=== PATIENT | female | born 1970 | race Caucasian/White ===

== ENCOUNTER → 2017-10-18 13:59 | Outpatient (CLI) | payer OTHER, SELFPAY ==
[2017-10-18 15:31] LABS: T4 Free Direct 1.13 ng/dL (0.76-1.46); Thyroid Stim Hormone (TSH) 1.57 uIU/mL (0.358-3.74)
== END ==
PROVIDERS: Family Provider Family Medicine; PCP Family Medicine; Visit Provider Nurse Practitioner
DX: E07.9 Disorder of thyroid, unspecified (principal)
CPT/HCPCS: 36415; 84439; 84443; 84481

== ENCOUNTER → 2017-11-16 12:48 | Outpatient (CLI) | payer OTHER, SELFPAY | PROVIDERS: Family Provider Family Medicine; PCP Family Medicine; Visit Provider Obstetrics & Gynecology | DX: Z12.31 Encounter for screening mammogram for malignant neoplasm of breast (principal) | CPT/HCPCS: 77063; 77067 ==

== ENCOUNTER 2018-01-24 11:01 | Day surgery (SDC) | payer OTHER, SELFPAY ==
[2018-01-18 11:43] LABS: Hematocrit 44.4 % (37-47); Hemoglobin 14.5 g/dl (12.0-15.0); Mean Corp Hgb Conc 32.7 g/gl (32-36); Mean Corpuscular Hgb 31.4 pg (27.0-32.0); Mean Corpuscular Volume 96.1 fL (81-99); Platelet Count 331 K/mm3 (150-450); Red Blood Count 4.62 M/mm3 (4.2-5.4); Scan Indicated on CBC? Y/N NO; White Blood Count 7.2 K/mm3 (4.4-11.0)
[2018-01-18 11:47] LABS: International Normalized Ratio 0.9; Prothrombin Time (Protime)PT. 12.6 SECONDS (11.7-14.9)
[2018-01-18 11:48] LABS: Partial Thromboplast Time 26.2 Seconds (24.1-36.2)
--- NOTE | 2018-01-24 | EMB_PTH ---
PATIENT: REJI REAL [place] [facility] [id number] AGE/SX: 47/F ROOM: RE01/24/[address]: Dr. Maryann Martinez MD : 1970 BED: DIS: 01/24/2018 SPEC #: [id number] RECD: 01/24/18 14:56 STATUS: ESPERANZA SALLIE #: [id number] KAVIN: 01/24/18 00:[address]: Maryann Martinez DEPT: SURGICAL PATHOLOGY RECD BY: Ty Rodrigez ENTERED: 01/24/18 14:56 SP TYPE: ENDOM BX/C BONITA DR: Dr. Kody Franco MD Tissues: A - Endometrium, NOS B - Endocervical Procedures: Surgery Specimen Level IV HEADER OPERATION: Hysteroscopy, D&C Lyndsay ablation, LEEP PRE-OP DIAGNOSIS: Submucous leiomyoma of uterus, other specified irregular menstruation TISSUE SUBMITTED: A. Endometrial curettings, B. Possible cervical fibroid MICROSCOPIC DIAGNOSIS A. Endometrium, biopsy: Proliferative endometrium with minimal disorder. Mild chronic endometritis. B. Possible cervical fibroid, excision: Consistent with submucosal leiomyoma. Endocervical and ectocervical mucosa with no pathologic change. CHAPARRITA:lupe 01/25/18 MICROSCOPIC DESCRIPTION Slides are reviewed. GROSS DESCRIPTION A. Received is one container labeled with the patient name and designated endometrial curettings. The specimen consists of multiple irregular fragments of hemorrhagic soft tissue that in aggregate measure 3 x .25 x 0.3 cm. The entire specimen is totally submitted in one cassette. B. Received is one container labeled with the patient name and designated possible cervical fibroid. The specimen consists of two indurated pieces of tissue that in aggregate measure 3 x 2.5 x 1 cm. The specimen is totally submitted in one cassette. Both pieces are serially sectioned and the entire specimen is submitted in 2 cassettes. KAN:lupe 01/24/18 TC: 3 CPT: 75487i7
[2018-01-24 11:24] VITALS: BP 124/69; PULSE 82; RESP 16; TEMP 36.3; O2SAT 100; BMI 25.9
[2018-01-24 11:32] LABS: Internal QC Validated? YES +Cl - CLEAR BKGD; Pregnancy, Urine Negative Negative
--- NOTE | 2018-01-24 12:18 | PCM.DC.D&C ---
Discharge Diet: No Restrictions Discharge Activity: May not drive while taking narcotic pain medications., May Shower, May Take a Tub Bath May resume sexual activity in: 1 week Call your doctor if you observe: Fever of 101 or Higher, Using more than one pad per hour, Uncontrolled pain Allergies/Adverse Reactions: Allergies No Known Allergies Allergy (Unverified 01/18/18 14:59) Medications to take at Discharge Cholecalciferol (Vitamin D3) [Vitamin D3] 1,000 unit PO DAILY 01/18/18 Levothyroxine Sodium [Synthroid] 112 mcg PO QHS 01/18/18 Multipak 1 pkg PO DAILY 01/18/18 Vitamin B Complex 1 each PO DAILY 01/18/18 Oxycodone [Oxyir] 5 mg PO Q6H PRN PRN 1 Days #4 tablet 01/24/18 The following prescriptions were given: Oxycodone [Oxyir] 5 mg PO Q6H PRN PRN 1 Days #4 tablet PRN Reason: Mod-Severe Pain (4-10/10) Primary Care Physician: Kody Franco MD [Primary Care Provider] - Test Results: Test results from this visit will be discussed in further detail at your follow-up appointment, if applicable. Please Follow Up With: Maryann Martinez MD - [phone] When: in 2 wk for postop appointment Proposed Discharge Date: 01/24/18
--- NOTE | 2018-01-24 12:22 | DCINST_ITS ---
Discharge Diet: No Restrictions Discharge Activity: May not drive while taking narcotic pain medications., May Shower, May Take a Tub Bath May resume sexual activity in: 1 week Call your doctor if you observe: Fever of 101 or Higher, Using more than one pad per hour, Uncontrolled pain Allergies/Adverse Reactions: Allergies No Known Allergies Allergy (Unverified 01/18/18 14:59) Medications to take at Discharge Cholecalciferol (Vitamin D3) [Vitamin D3] 1,000 unit PO DAILY 01/18/18 Levothyroxine Sodium [Synthroid] 112 mcg PO QHS 01/18/18 Multipak 1 pkg PO DAILY 01/18/18 Vitamin B Complex 1 each PO DAILY 01/18/18 Oxycodone [Oxyir] 5 mg PO Q6H PRN PRN 1 Days #4 tablet 01/24/18 The following prescriptions were given: Oxycodone [Oxyir] 5 mg PO Q6H PRN PRN 1 Days #4 tablet PRN Reason: Mod-Severe Pain (4-10/10) Primary Care Physician: Kody Franco MD [Primary Care Provider] - Test Results: Test results from this visit will be discussed in further detail at your follow- up appointment, if applicable. Please Follow Up With: Maryann Martinez MD - [phone] When: in 2 wk for postop appointment Proposed Discharge Date: 01/24/18
[2018-01-24] MEDS: FERRIC SUBSULFATE 8 GM SOLN (12:58)
[2018-01-24 13:13] VITALS: BP 103/59; BP 124/69; PULSE 71; RESP 16; TEMP 36.8; O2SAT 99
[2018-01-24 13:15] VITALS: BP 109/66; BP 124/69; PULSE 69; RESP 16; O2SAT 99
[2018-01-24 13:30] VITALS: BP 113/67; BP 124/69; PULSE 67; RESP 14; O2SAT 99
[2018-01-24 13:32] VITALS: BP 119/74; BP 124/69; PULSE 70; RESP 14; TEMP 36.9; O2SAT 100
[2018-01-24 14:08] VITALS: BP 124/69
--- NOTE | 2018-01-25 06:11 | PCM.OP.BLANK ---
Operative Report Date of Procedure: 01/24/18 Pre-Operative Diagnosis: Menometrorrhagia. Excessive irregular bleeding in premenopause Cervical fibroid vs sessile polyp at anterior lip of cervix. Post-Operative Diagnosis: Menometrorrhagia. Excessive irregular bleeding in premenopause Cervical fibroid vs sessile polyp at anterior lip of cervix. Surgery/Procedure Performed: Hysteroscopy, D and C, Lyndsay endometrial ablation. LEEP cone biopsy of cervix. Anesthesia: MAC IV sedation, Guerrero Phillip CRNA 10 cc 1% lidocaine with epinephrine as paracervical block, Maryann Martinez MD Estimated Blood Loss (mL): Minimal Complications: None. Drains: None. Fluids Replaced: Lactated Ringers Findings: Parous appearing cervix, with sessile polyp vs cervical fibroid at anterior lip of cervix. normal appearing endometrial cavity, no distortions. Fluffy appearing endometrium. Bilateral tubal ostia visualized Pathology Specimens: Endometrial curettings. LEEP biopsy of ectocervix (sessile polyp vs cervical fibroid) Narrative Account: After the risks, benefits, alteratives of the procedure were reviewed with the patient informed consent was obtained. The patient was taken to the OR with IV running and placed in dorsal supine position on the operating table. She was given IV sedation , and then repositioned to the dorsal lithotomy position and was prepped and draped in the usual sterile fashion. A Graves speculum was placed, the cervix was identified and a 10cc paracervical block was instilled at the 2:00, 4:00, 8:00 and 10:00 positions. A single toothed tenaculum was placed at the posterior lip of the cervix and the cervix was sequentially dilated to admit the hysteroscope. Hysteroscopy was performed with the findings noted above. A sharp curettage was then performed and the tissue set aside for later pathology review. The Lyndsay endometrial ablation procedure was then performed. The device was set to a cavity length of 5.5 cm (11 cm sound - 5.5 cm endocervical canal). The safety test was passed and the ablation was performed for 2 minutes. Upon completion of the ablation, the Lyndsay was removed. The single toothed tenaculum was removed from the posterior cervix. Excellent hemostasis was noted. A loop electrical excision procedure was then performed -- to excise the lesion at the anterior lip of the cervix-- at a power of 50-50 with blend of 1 between cut and coag. The biopsy was performed with a single pass. Excellent hemostasis was noted. A ball cautery was then used to cauterize the margins of the cervix at the biopsy site. [place] was applied to the cervix then. Excellent hemostasis was noted. A sponge stick was then used to remove any remaining tissue and blood from the upper vagina and cervix . All instruments were then removed from the vagina. The patient was awakened from her IV sedation, and then transferred to her recovery room bed in stable condition after tolerating the procedure well. Sponge , instrument, and needle counts were correct x two. Medications given intraoperatively included: the 10cc of 1% lidocaine with epinephrine as paracervical block. For a complete listing of medications given intraoperatively, please see the anesthesia record.
== END 2018-01-24 14:11 | disposition home or self-care (01) ==
LOC: SDC 11:07 → AC 11:10
PROVIDERS: Family Provider Family Medicine; PCP Family Medicine; Referring Provider Obstetrics & Gynecology; Visit Provider Obstetrics & Gynecology
PROC: 0U5B8ZZ Destruction of Endometrium, Via Natural or Artificial Opening Endoscopic (ICD-10-PCS; CPT 58558; principal; 2018-01-24 12:15)
DX: N71.1 Chronic inflammatory disease of uterus (principal); N92.1 Excessive and frequent menstruation with irregular cycle; E06.3 Autoimmune thyroiditis; Z79.899 Other long term (current) drug therapy
CPT/HCPCS: 00940; 57522; 58563; 36415; 81025; 85027; 85610; 85730; 88305; J7120; J2405

== ENCOUNTER → 2018-03-01 09:00 | Outpatient (CLI) | payer OTHER, SELFPAY ==
--- NOTE | 2018-03-01 09:05 | RAD_ITS ---
STUDY: X-RAY - ABDOMEN/PELVIS REASON FOR EXAM: Female, 47 years old. Abdominal pain in the lower abdomen, 4 days. TECHNIQUE: KUB COMPARISON: None. FINDINGS: Grossly normal size and position of the solid organs of the abdomen. No visible free air. Unremarkable small bowel pattern, minimal scattered gas, nondilated. Minimal stool burden of the large bowel, nondilated. The urinary bladder is somewhat distended. Correlate for appropriate voiding ability. Mild low lumbar spondylosis. Osteopenia. RAD/Abdomen Single View IMPRESSION: No definitive acute abdominopelvic process is evident. Normal bowel pattern. Somewhat distended urinary bladder. Correlate for appropriate voiding ability. Electronically Signed: Celso Winston MD at 13:41 EST Tel , Service support ,
== END ==
PROVIDERS: Family Provider Family Medicine; PCP Family Medicine; Referring Provider Family Medicine; Visit Provider Family Medicine
DX: R10.13 Epigastric pain (principal)
CPT/HCPCS: 74018

== ENCOUNTER → 2018-03-05 09:06 | Outpatient (CLI) | payer OTHER, SELFPAY ==
--- NOTE | 2018-03-05 09:11 | US_ITS ---
STUDY: ABDOMINAL ULTRASOUND - RIGHT UPPER QUADRANT REASON FOR VISIT: Female, 47 years old. TECHNIQUE: Ultrasound evaluation of the right upper quadrant was performed with real-time and static william-scale imaging. TECHNICAL QUALITY: Adequate. COMPARISON: None. FINDINGS: Liver: The liver measures 13cm. There is normal echogenicity of the liver. The bile ducts are within normal limits. There is hepatic color flow. The direction of portal flow is hepatopetal. There is no demonstrated mass lesion. Gallbladder: Normal distended gallbladder. The gallbladder wall measures 0.42 cm. There is a negative sonographic Allan's sign. There is no pericholecystic fluid. There is some debris, sludge or gravel. Common Bile Duct (C.B.D.): The common bile duct measures 0.35 cm. Pancreas: Normal size of the head, body and tail of the pancreas. There is normal echogenicity of the pancreas. There is no demonstrated pancreatic mass or cyst. Right Kidney: Normal size of the right kidney. The right kidney measures cm. Normal renal cortex. The right cortex measures cm. There is no demonstrated renal mass or cyst. There is no right hydronephrosis. US/Abdomen Limited IMPRESSION: Normal right upper quadrant ultrasound examination. Electronically Signed: Lukascleo Steff, at 15:38 EST Tel , Service support ,
== END ==
PROVIDERS: Family Provider Family Medicine; PCP Family Medicine; Referring Provider Family Medicine; Visit Provider Family Medicine
DX: R10.13 Epigastric pain (principal)
CPT/HCPCS: 76705

== ENCOUNTER 2018-03-12 11:09 | Emergency (ER) | payer OTHER, SELFPAY ==
[2018-03-12] VITALS (10 sets, daily range): BP systolic 109–124; BP diastolic 52–68; PULSE 74–96; RESP 14–18; TEMP 36.9–37.8; O2SAT 17–100; BMI 25.5
--- NOTE | 2018-03-12 11:25 | CT_ITS ---
STUDY: CT ABDOMEN AND PELVIS WITH CONTRAST REASON FOR EXAM: Female, 47 years old. 2 week history of left lower quadrant pain. Recent uterine ablation. RADIATION DOSAGE (If Supplied By Facility): CTDIvol = ( 12.98 ) mGy, DLP = ( 812.12 ) mGycm TECHNIQUE: Transaxial images were obtained from the dome of the diaphragm to the symphysis pubis without oral contrast. 100 ml of Isovue 300 contrast was administered. Sagittal and coronal images were reconstructed. Individualized dose optimization techniques were used for this CT. COMPARISON: None. FINDINGS: Minimal degree of dependent bibasilar atelectasis. The visualized portions of the heart are within normal limits. Normal liver. Normal gallbladder and extrahepatic biliary system. Normal spleen. Normal pancreas. Normal bilateral adrenal glands. Normal right kidney. Mild degree of left hydronephrosis. There is a small hiatal hernia. Normal small intestine. Normal colon. The appendix is visualized and appears normal. Normal abdominal aorta. Normal inferior vena cava. Normal retroperitoneum. Normal urinary bladder. There is a 4.4 cm x 9.2 cm x 8.4 cm complex cystic mass in the left adnexal region. There is diffuse inhomogeneous enlargement of the uterus. There are focal areas of increased density within it as well as decreased densities. Findings are suggestive of a fibrotic change with possible bleeding within the uterus. Correlation with a pelvic sonogram is recommended. Normal abdominal wall. Disc space narrowing and disc degeneration at the L5-S1 level. CT/Abdomen/Pelvis WITH Contrast IMPRESSION: Large left complex adnexal mass as described. Enlarged and heterogeneous appearance of the uterus. Correlation with pelvic ultrasound is recommended. Electronically Signed: Eric Saha MD at 13:13 EST Tel [phone], Service support ,
[2018-03-12 11:48] LABS: Absolute Lymphocyte Count 1.18 X10^3/ul (0.83-4.51); Absolute Neutrophil Count 12.1 X10^3/uL (2.0-7.7); Basophil# 0.03 X10^3/uL; Basophil% 0.2 % (0-1); Eosinophil# 0.09 X10^3/uL; Eosinophils% 0.6 % (0-5); Hematocrit 41.3 % (37-47); Hemoglobin 13.5 g/dl (12.0-15.0); Lymphocyte # 1.18 X10^3/ul (4.0); Lymphocyte % 8.4 % (19-41); Mean Corp Hgb Conc 32.7 g/gl (32-36); Mean Corpuscular Volume 94.7 fL (81-99); Monocyte# 0.63 X10^3/uL; Monocyte% 4.5 % (0-10); Neutrophil # 12.09 X10^3/uL (2.7-7.7); Neutrophil % 86.1 % (47-70); Platelet Count 484 K/mm3 (150-450); RBC Distribution Width CV 12.3 % (11.6-14.6); RBC Distribution Width SD 41.7 fl (35.1-43.9); Red Blood Count 4.36 M/mm3 (4.2-5.4); White Blood Count 14.1 K/mm3 (4.4-11.0)
[2018-03-12 11:50] LABS: POSITIVE COUNT NO; POSITIVE DIFFERENTIAL NO; POSITIVE MORPHOLOGY NO
[2018-03-12 12:00] LABS: ALB/GLOB Ratio 0.6 RATIO (0.9-2.4); AST(SGOT) 15 U/L (15-37); Alanine Aminotransfer ALT/SGPT 21 U/L (13-56); Albumin, Serum 3.2 g/dL (3.2-5.0); Alkaline Phosphatase 79 U/L (45-117); Anion Gap 8 (5-15); BUN 12 mg/dL (7-18); BUN/Creat Ratio 12.4 RATIO (10-20); Chloride 102 mmol/L (98-107); Creatinine, Serum 0.97 mg/dL (0.55-1.02); EST Glomerular Filtration Rate 65 mL/min (>60); Est Glom Filt Rate - Afr Amer 79 mL/min (>60); Estimated Creatinine Clearance 69.72 ml/min; Glucose 122 mg/dL (74-106); Potassium 3.9 mmol/L (3.5-5.1); Protein, Total 8.2 g/dL (6.4-8.2); Sodium Level 138 mmol/L (136-145)
[2018-03-12 12:55] LABS: Mucous, Urine 0 SEEN /hpf (<or=2+)
[2018-03-12 12:58] LABS: Color, Urine Yellow (Yellow); Glucose, Dipstick Normal (Normal); Ketone-Dipstick Negative (Negative); Leukocyte Esterase-Dipstick 500 /ul (Negative); Nitrite-Dipstick Negative (Negative); Occult Blood-Urine 150 /ul (Negative); Protein-Dipstick Negative (Negative); Urine Bilirubin Dipstick Negative (Negative); Urine Clarity Sl. Cloudy (Clear); Urine Urobilinogen Normal (Normal)
[2018-03-12] MEDS: Morphine 4 MG/ML Syringe IV (13:04)
[2018-03-12] MEDS: Ondansetron 4 MG/2 ML Vial IV (13:04)
[2018-03-12 13:05] LABS: Bacteria 1+ /hpf (None Seen); Red Blood Cells-Urine 0-5 SEEN /hpf (0-5); Squamous Epithelial Cells - UA 0-5 SEEN /hpf (5-10); White Blood Cells 5-10 SEEN /hpf (0-5); Yeast-Urine RARE /hpf (None Seen)
--- NOTE | 2018-03-12 13:24 | US_ITS ---
STUDY: ULTRASOUND TRANSVAGINAL CLINICAL: Female, 47 years old. Mass and left lower quadrant pain TECHNIQUE: Transvaginal COMPARISON: CT scan on March 12, 2018 FINDINGS: Examination of the uterus is limited due to thick enlargement and multiple fibroids Uterus measures approximately 10.5 x 8.7 x 7.5 cm. There are numerous fibroids at least 4 with the largest measuring 4 x 2.5 x 3.1 cm, 3.5 x 2.9 x 2.3 cm, 3.1 x 2.6 x 3.1 cm and 2.8 x 2.7 x 2.1 cm Normal endometrial thickness measuring 8 mm. There are no endometrial masses, and there is no fluid in the endometrial cavity. Normal uterine cervix. Normal right ovary, measuring 3.1 x 2.8 x 2.3 cm cm. There are multiple follicles without a dominant cyst. Left ovary is enlarged measuring 7.8 x 8.6 x 7 cm and there is a multi septated cyst with internal debris measuring 7.6 x 6.7 x 5.1 cm There is no mild free fluid in the pelvis. US/Transvaginal Non- IMPRESSION: Enlarged uterus with multiple intrauterine fibroids and large complex left ovarian cyst with mild fluid in the cul-de-sac Electronically Signed: Aneesh Neely MD at 16:36 EST , Service support ,
--- NOTE | 2018-03-12 14:22 | ED.DCSUM_ITS ---
- ER Visit Summary Date of Service: 03/12/18 Chief Complaint: Left lower quadrant abdominal pain History of Present Illness: The patient is a 47 F who has had 2 weeks of left lower quadrant abdominal pain. She describes as sharp in the left lower quadrant and radiates to the top of her bladder area. Denies nausea or vomiting. She has had some diarrhea today. Her temperature was 99 ?F at home. Denies any bright red blood per rectum. She has had an ultrasound and a KUB as an outpatient initially showed no acute findings. She tried Prilosec and Bentyl without relief. She had a uterine ablation this month and her NURSING HOME ASSISTANT ADMINISTRATOR does not feel that it is related to that. Physical Examination: Vital signs reviewed. HEENT exam unremarkable. Heart is regular rate and rhythm without murmurs. Lungs are clear to auscultation. Abdomen is soft it is in the left lower quadrant. Extremities reveal no edema. Skin exam normal. Neurologic exam normal. Test Results: White blood cell count 14.1. Glucose 122. Liver enzymes normal. Urinalysis reveals no infection. CAT scan of the abdomen and pelvis reveals a left adnexal complex mass. They recommended an ultrasound to delineate this further. Emergency Department Course and Treatment: White blood cell count 14.1, glucose 122. Urinalysis negative for infection. CAT scan reveals a left adnexal mass and pelvic ultrasound is recommended. Pelvic ultrasound reveals a complex left ovarian cyst measuring 7 x 6 x 5 cm. There is fibroids also noted. Treatment Plan: Patient will be discussed with her NURSING HOME ASSISTANT ADMINISTRATOR, Dr. Martinez. I will give her some [place] at home to help with the pain. She likely needs NURSING HOME ASSISTANT ADMINISTRATOR follow-up for this. He does not appear to be infectious in nature. Disposition: Discharge Impression: Left complex ovarian cyst This note was generated with [employer] dictation software. It may contain incorrect words, spelling, and punctuation that were not noted in review of the chart miguel or to signing ED Disposition - Plan for ED Patient: Chief Complaint: Abd Pain Referrals: Kody Franco MD [Primary Care Provider] -
[2018-03-12] MEDS: HYDROmorphone 1 MG/ML Syringe IV ×2 (14:39→17:15)
--- NOTE | 2018-03-12 16:53 | DCINST.ED_ITS ---
ED Disposition - Plan for ED Patient: Chief Complaint: Abd Pain Instructions: ED Cyst Ovarian Prescriptions: Hydrocodone Bitart/Apap 5-325 [[place] 5MG-325MG] 1 tab PO Q6H PRN PRN 3 Days #10 tab PRN Reason: Pain Referrals: Kody Franco MD [Primary Care Provider] -
== END 2018-03-12 17:23 | disposition home or self-care (01) ==
LOC: ED 12:04
PROVIDERS: Emergency Provider Emergency Medicine; Family Provider Family Medicine; PCP Family Medicine
DX: N83.202 Unspecified ovarian cyst, left side (principal); Z79.899 Other long term (current) drug therapy
CPT/HCPCS: 74177; 76830; 80053; 81001; 85025; 96374; 96375; 96376; 99283; J7030; Q9967; A4216; J2405

== ENCOUNTER 2018-03-16 14:03 | Inpatient (IN) | payer OTHER, SELFPAY ==
[2018-03-12 11:09] VITALS: BMI 25.5
--- NOTE | 2018-03-15 14:59 | HP.PCM_ITS ---
History and Physical Date of Admission: 03/15/18 Date: 03/15/2018 MARÍA REAL Date of : 1970 HISTORY OF PRESENT ILLNESS: On 03/15/2018, María Real, a 47 year old female 2 0 0 0 2, presented for: -Emergency Dept follow up and preop history and physical: PT is a 47 yo female, G-2 P-2 here today for a follow up to an ER visit to [facility] ER for pelvic pain. PT states she is still having pain in her LLQ, around to her L flank , and feeling pressure in her rectum. Denies any trouble with BM's or urinating. dg As above. María presented to [facility] emergency department on 03/12/18 to 03/13/18 with CC of pain in LLQ present for two weeks. Pain is described as sharp in LLQ and radiating to midline, suprapubic region. No rectal bleeding, No N/V. Some diarrhea on day of her presentation. She has had an endometrial ablation in January 2018 for irregular, heavy periods and reports that the periods are now regular. Hopeful no additional surgery / hysterectomy will be needed to treat periods. Labs in the ED: UA neg. WBC 14.1 Glucose [address] of abdomen and pelvis showed a left adnexal mass, complex. SONO at [facility] ED 03/12/18: Uterus -- 10.5 x 8.7 x 7.5 cm with numerous fibroids (at least four were measured) ES 8 mm R ovary WNL 3.1 x 2.8 x 2.3 cm multpile follicles L ovary 7.8 x 8.6 x 7 cm with a multiseptated cyst 7.6 x 6.7 x 5.1 cm Her prior ultrasound in this office in OCTOBER 2017: UTERUS: 10.4 x 6.8 x 7.3cm. Three submucous fibroids 1) 2.9 x 3.1 x 3.3cm. 2) 2.1 x 2.6 x 2.4cm 3) 3.2 x 2.8 x 2.7cm. RIGHT OVARY: 2.8 x 2.6 x 1.9cm. small follicle measures 1.5 x 1.7 x 1.5cm. LEFT OVARY: 5.1 x 3.8 x 5.1cm. hemorrhagic cyst measures 4.3 x 4.3 x 2.7cm. María and her are advised that the Left ovarian cyst has grown since October 2017 from 4.3 x 4.3 x 2.7 cm. to 7.6 x 6.7 x 5.1 cm Advised that the Left ovary and fallopian tube should be removed. Recommend she consider LAVH, LSO, R salpingectomy. May also consider removal of just the left fallopian tube and ovary if she is not wanting the fibroid uterus removed. EB ALLERGIES: aspirin, Upset stomach MEDICATIONS HISTORY: Current medications prescribed by our practice are: 1. Vicodin 5 mg-300 mg tablet, 1 po q 4 hr prn Patient is also takin. Calcium 600 with Vitamin D3 600 mg(1,500mg) -400 unit capsule, daily 2. levothyroxine 88 mcg tablet, daily 3. Multi For Her 18 mg iron-600 mcg capsule, daily 4. Vitamin B Complex tablet, daily 5. Vitamin C 500 mg tablet, daily 6. Vitamin D3 1,000 unit tablet, daily REVIEW OF SYSTEMS: GENERAL - Denies fever, or chills SKIN - Denies skin changes EYES - Denies visual changes EARS - Denies difficulty hearing NOSE - Denies nasal congestion or bleeding MOUTH - Denies sore throat or difficulty swallowing NECK - Denies pain or swelling RESPIRATORY - Denies shortness of breath or wheezing CARDIOVASCULAR - Denies palpitations or chest pain GASTROINTESTINAL - Denies nausea, vomiting, diarrhea, constipation GENITOURINARY - Pain in left pelvic MUSCULOSKELETAL - Denies joint or muscle pain NEUROLOGICAL - Denies localized numbness or weakness PSYCHIATRIC - Denies depression or anxiety ENDOCRINE - Denies heat or cold intolerance, weight loss or gain HEMATO-IMMUNOLOGIC - Denies excesive bleeding with cuts PAST HISTORY: Breast/Ovarian/Colon Cancers - Denies Infections - Chicken pox Illnesses - fibromyalgia, Plantar fasciitis both feet Accidents - no injuries of consequence History of Abnormal PAPS - Denies Hospitalizations - Childbirth and see surgery Patrick Thyroiditis; SURGICAL HISTORY: 1. bilateral foot surgery for plantar fasciitis 2. 01/24/2018 Hysteroscopy, D and C, Lyndsay ablation Maryann Martinez M.D. 3. 12/08/[address] Almonte Patrick Thyroiditis MENSTRUAL HISTORY: LMP Known?- Approximate-Month KnownAmount/Duration - 7-10, Regularity - Regular, Frequency - monthly days, LMP - 03/13/18, Age Onset Menarche - 13 PAST PREGNANCIES: Total Pregnancies - 2; Full Term Pregnancies - 2; Premature - 0; Abortions, Induced - 0; Abortions, Spontaneous - 0; Ectopics - 0; Multiple Births - 0; Living Children - 2 FAMILY HISTORY (OLD): Mother: DM II. Father: kidney problems. Sister: DM II. 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 Illicit Drug Use - denies use of street drugs Sexual Activity - Residence - owns a home Hours Worked - 35 Spouse-Sig Other Name - PAUL Spouse-Sig Other Occupation - FE[employer]ER C[employer]ER [employer] Children Name(s) - ARCELIA ( 10/21) Control - Vasectomy PHYSICAL EXAMINATION BP- 128/72 Sitting, Right arm, regular cuff Weight- 164.00 lbs Height- 67.00 inch BMI:25.74 CONSTITUTIONAL - NAD, well nourished, and well developed HEENT - Normocephalic, PERRLA, EOMI NECK - no nuchal rigidity EXTREMITIES - No edema or calf tenderness NEUROLOGICAL - Cranial nerves II-XII grossly intact PSYCHIATRIC - A and O to time, place, person, mood and affect ASSESSMENT: 1. Leiomyoma Of Uterus, Unspecified 2. Other Ovarian Cyst, Left Side 3. Lower Abdominal Pain, Unspecified PLAN BY DIAGNOSIS: 1. Abnormal Findings On Diagnostic Imaging Of Other Specified Body Structures, Lower Abdominal Pain, Unspecified, Other Ovarian Cyst and Left Side Discussed pelvic sono done at [facility] Emergency dept. Reviewed sono done in October 2017 which showed a hemorrhagic cyst on L ovary, but only 4-5 cm and now is much larger. Recommend: laparoscopic LSO to remove the left ovary and fallopian tube. Pathology results for final diagnosis, but suspect benign process as no free fluid in pelvis. Discussed R,B,A of laparoscopic left salpingoophorectomy with possible minilaparotomy to remove L ovary. Advised will leave R ovary in place if NL and appears to be normal on sono. Discussed anticipated preop and operative and postop recovery including ac All questions answered and consent signed and on chart. Surgery as planned on 03/16/18 RTO in 2 wk for postop check. The visit was approximately 20 minutes in length with most of the time spent in discussion and counseling. 2. Leiomyoma Of Uterus, Unspecified and Other Specified Irregular Menstruation S/P hysteroscopy, D and C, and Lyndsay endometrial ablation. Advised may consider hysterectomy or may continue to observe and await menopause. Prefers no hysterectomy at this point. Bleeding is now regular after the endometrial ablation. Wants to observe for now. If failure of treatment: reconsider hysterectomy. LAVH vs TVH
[2018-03-16] VITALS (13 sets, daily range): BP systolic 91–127; BP diastolic 51–75; PULSE 51–86; RESP 14–20; TEMP 36.2–36.9; O2SAT 97–100; BMI 25.3
--- NOTE | 2018-03-16 | HYST_PTH ---
PATIENT: REJI REAL LOC: MS3 U#:[id number] AGE/SX: 47/F ROOM: IA310 RE03/16/[address]: Dr. Maryann Martinez MD : 1970 BED: 1 DIS: 03/18/2018 SPEC #: [id number] RECD: 03/16/18 14:57 STATUS: ESPERANZA REJaswant #: [id number] KAVIN: 03/16/18 00:[address]: Maryann Martinez DEPT: SURGICAL PATHOLOGY RECD BY: Ty Rodrigez ENTERED: 03/16/18 14:57 SP TYPE: HYSTERECT OTHR DR: Dr. Kody Franco MD Tissues: Uterus, NOS Procedures: Surgery Specimen Level V HEADER OPERATION: Diagnostic laparoscopy converted to open abdominal hysterectomy PRE-OP DIAGNOSIS: Left ovarian cyst, lower abdominal pain, leiomyoma of uterus TISSUE SUBMITTED: Uterus, cervix, left ovary and tube MICROSCOPIC DIAGNOSIS Uterus, hysterectomy: Cervix - chronic inflammation, nabothian cysts and squamous metaplasia. Endometrium - ablated with associated fibrinoid material and acute inflammation. Myometrium - leiomyomas. Left ovary - hemorrhagic corpus luteal cyst. Fallopian tube - benign paratubal cyst and tubo-ovarian adhesions. AM:shavon 03/19/18 MICROSCOPIC DESCRIPTION Slides are reviewed. GROSS DESCRIPTION Received in fixative is one container labeled with the patient's name and designated uterus. The specimen consists of a morcellated uterus received in 14 fragments ranging in size from 1.5 cm to 8 cm in greatest dimension and in aggregate weighing 325 gm. The fragment with ectocervix is grossly unremarkable. The cervical os is oval in contour. The endocervical canal measures 3.5 cm in length and is grossly unremarkable. The triangular endometrial cavity measures 4 x 3 cm. The curran-yellow endometrium measures up to 0.2 cm in thickness and may represent post therapeutic discoloration. The myometrium measures 3 cm in greatest thickness and is distorted by three spherical rubbery masses ranging in size from 2.5 to 3.8 cm. On cut sections, the masses have a whorled appearance without areas of cyst formation or necrosis. Also present in the specimen container is a smooth, glistening cyst measuring 1.7 x 1.5 cm and containing clear fluid and grossly resembling a paratubal cyst. Also present in the specimen container are six irregular fragments of hemorrhagic pink-curran soft tissue measuring 6 x 5 x 3 cm. Presumably this represents ovarian tissue. One segment of tubular tissue measuring 2 x 1 cm is present and presumed to be a portion of fallopian tube. No distinct fimbrial end is seen. Fellmongering Machine Operator sections are submitted in 12 cassettes as follows: 1 & 2 - cervix, 3-6 - endometrium/myometrium, 7 - largest myometrial mass, 8 - second largest myometrial mass, 9 - third largest myometrial mass, 10-12 - presumed ovary, fallopian tube and paratubal cyst. / AM:shavon 03/16/18 TC:1 CPT: 72548
[2018-03-16 09:47] LABS: Internal QC Validated? YES +Cl - CLEAR BKGD
[2018-03-16 09:50] LABS: Pregnancy, Urine Negative Negative
[2018-03-16 10:24] LABS: Thyroid Stim Hormone (TSH) 5.44 uIU/mL (0.358-3.74)
[2018-03-16] MEDS: Bupivacaine Mpf 0.5% 30 ML VIAL (11:45)
--- NOTE | 2018-03-16 14:56 | OP.PCM_ITS ---
Operative Report Date of Procedure: 03/16/18 PROCEDURE: Diagnostic Laparoscopy, converted to SUSAN. Total abdominal hysterectomy Left salpingoophorectomy Adhesiolysis Preoperative diagnosis: Left ovarian cyst, complex appearing 7 x 8 cm Chronic pelvic pain, lower abdominal pain Fibroid uterus History of heavy , irregular periods. S/P hysteroscopy, D and C (benign), Lyndsay endometrial ablation. Postop diagnosis: Left ovarian cyst, complex appearing 7 x 8 cm Chronic pelvic pain , lower abdominal pain Endometriosis Dense pelvic adhesions at left adnexa Fibroid uterus History of heavy , irregular periods. S/P hysteroscopy, D and C (benign), Lyndsay endometrial ablation. Anesthesia: General anesthesia, Katya Martin CRNA Surgeon: Maryann Martinez MD Spike Machine Feeder: FLORESITA Pierce EBL 250 cc Complications: none Drains: Riley draining clear yellow appearing urine Fluids: replacement LR Findings: There was a mildly enlarged fibroid uterus which was freely mobile. The right fallopian and tube and ovary are WNL, mobile and without adhesions or endometriosis. The left fallopian tube and ovary were densely adherent to the pelvic sidewall, posterior leaf of the broad ligament, uterus. A large fluid filled cyst was noted and drained of chocolate appearing endometriotic fluid during the case. There were dense adhesions at the uterosacral ligaments on the left side. Thickened , reactive peritoneum was noted at the left side of the pelvis. PATH: Uterine fundus, without cervix Right fallopian tube and ovary, dissected from the pelvic sidewall and removed in pieces. Narrative account: After the risks, benefits and alternatives of the procedure were reviewed with the patient, informed consent was obtained. The patient was taken to the Operating room with an IV running, and placed in dorsal supine position on the operating table with the arms tucked at the sides. She was given general anesthesia and once asleep, repositioned to the dorsal lithotomy position and prepped and draped in the usual sterile fashion. A red Holcomb catheter was used to drain the bladder prior to initiation of the case. A single toothed tenaculum was used to grasp the anterior lip of the cervix and a Dayanara cannula was inserted into the cervix to manipulate the uterus and cervix during the case. Attention was then turned to the anterior abdominal wall. The roll grinder operator's gloves were changed and 0.5% Marcaine without epinephrine was instilled at the skin inferior to the umbilicus, at the suprapubic skin in the midline and at a point retirement between the umbilicus and suprapubic skin in the midline. A 5 mmm skin incision was created using the knife at the infraumbilical skin, at 10 mm suprapubic skin incision was created and a third incision, 5 mm, was created transversely in the midline. A Veress needle was inserted into the infraumbilical skin incision and there was free drop of saline and low opening pressure, free flow of C02. Once the intraabdominal pressure reached 15 mm Hg, the Veress needle was removed and a bladeless 5 mm trocar was inserted into the intraperitoneal cavity. Correct placement was confirmed with the scope. Under direct laparoscopic visualization then a 5 mm bladeless trocar was placed at the mid-lower abdominal incision and a 10 mm bladeless trocar was placed through the suprapubic skin. An attempt was made to mobilize the left adnexal mass, but the mass could not be mobilized and was firmly adherent to the pelvic sidewall. The right ovary and fallopian tube were normal appearing, freely mobile with no evidence of endometriosis. Given the dense adhesions, the decision was made to proceed with left salpingoophorectomy through a laparotomy incision. The proper surgical instrument set was called for and the room was converted to an open case. At this point, I broke scrub to discuss the findings with the patient's . I presented the option to go ahead with hysterectomy for María's fibroid uterus and history of heavy and irregular periods. María, in preoperative discussion, was hoping to avoid a 4-6 wk recovery, but given the need for laparotomy to address the L adnexal mass Riki agreed that it was reasonable to proceed with hysterectomy, and removal of the left ovarian mass. I returned to the operating room to proceed with amended procedure as discussed: SUSAN, left salpingoophorectomy and lysis of adhesions. The trocars were removed and the pneumoperitoneum was reduced. The infraumbilical skin incision and the mid lower abdomen skin incisions were closed with subcuticular stitches of 4-0 Monocryl. A Pfannenstiel skin incision was created using the knife. The incision was carried down to the rectus fascia using the knife. The fascia was nicked in the midline. The fascial incision was extended bilaterally using curved Fu scissors. The superior aspect of the fascial incision was grasped with Fabiana clamps and tented up and the underlying rectus abdominal muscles were dissected free. In a similar manner, the inferior aspect of the facial incision was grasped with Fabiana clamps tented up and the underlying rectus abdominal muscles were dissected free. The rectus abdominis muscles were in the midline and the peritoneum was identified and entered by blunt dissection high in the incision. The peritoneal incision was extended superiorly and inferiorly with Metzenbaum scissors. The peritoneum and rectus abdominis muscles were stretched laterally. The Joon retractor with short side blades, bladder retractor and superior arm retractor were then inserted. The bowel was tucked back out of the field with moistened laparotomy sponges. The exposed portion of the uterine fundus was grasped with a single toothed tenaculum to allow manipulation of the uterus while adhesiolysis was initiated. The round ligaments were grasped, suture ligated and then divided by Bovie cautery. These were tagged for later identification. Bovie cautery and sharp dissection were used to divide the anterior leaf of the broad ligament down to the midportion of the lower uterine segment A sponge stick was then used to push the bladder down off the cervix. A curved Rell clamp was then used to grasp the left infundibulopelvic ligament. This was divided, suture ligated and free tied with 1 Vicryl. Adequate hemostasis was noted at the pedicle. Sequential pedicles were then taken along the broad ligament at each side of the uterus, alternating between the right and the left sides to maintain hemostasis. Each pedicle along the broad ligament was sequentially grasped by straight Rell clamps, divided and suture ligated. Adequate hemostasis was noted as each pedicle was secured. The uterine arteries were clamped bilaterally and divided and suture ligated. At this point, to improve visualization of the operative field the uterine fundus was amputated. The circulating nurse placed a Riley catheter at this point also to drain the bladder for the remainder of the case and to improve surgical exposure. Dissection then continued along each side of the lower uterine segment and cervix. Each pedicle was clamped, maintaining close approximation to the uterus and cervix. Ultimately a Z clamp was placed from each side to a point just inferior to the cervix along the upper vagina. The vagina was then closed with a series of interrupted and figure of eight stitches of 0 Vicryl. Excellent hemostasis was noted at the vaginal cuff and right ovarian pedicle. Attention was then turned to closer inspection of the remaining L ovary. The peritoneum at the left pelvis was thickened and reactive. Using Metzenbaum scissors and [place] clamps for exposure, the remaining left ovarian tissue and endometriosis was removed in portions, set aside for later pathology review. The left infundibulopelvic ligament was oversewn for hemostasis. The left round ligament was dry. The pelvis and abdomen were irrigated. A clean, moist laparotomy sponge was placed at the L pelvic sidewall and this area was inspected for hemostasis. There was some generalized, minimal, oozing noted at the dissection where the adhesions and endometriosis was removed . Taisha was applied to the area and the area was oversewn with 3-0 Vicryl to reperitonealize the area. The pelvis was again inspected. Excellent hemostasis was noted. Taisha was sprayed along the vaginal cuff after visual inspection. All laparotomy sponges were removed, and the Joon retractor was removed. The bowel and omentum were returned to their anatomic positions in the lower abdomen. The rectus abdominis muscles and peritoneum were reapproximated in the midline with vertical mattress stitches of 1 Vicryl. Taisha was dusted over the anterior rectus bodies. The fascia was then closed with a running nonlocked stitch of 1 Vicryl. Bovie cautery was used for hemostasis at the subcutaneous fatty tissue layer. 3-0 Vicryl was then used to reapproximate this layer and close space. The skin was then reapproximated with a subcuticular stitch of 4-0 Monocryl in a running fashion. The skin incision was then cleansed and a sterile dressing of Cavilon, steristrips, and a Mepilex were applied. Sponge, instrument and needle counts were correct times two. The patient was then awakened from general anesthesia and transferred to the recovery room in stable condition after tolerating the procedure well. Excellent urine output was noted. Medications given preop and intraop included: Cefotetan 2 gm IV requested to the OR and given in the OR when the decision was made to proceed with the open hysterectomy. For a complete listing of medications given preop and intraop, please see the anesthesia record.
[2018-03-16 15:29] LABS: Anion Gap 10 (5-15); BUN 11 mg/dL (7-18); BUN/Creat Ratio 8.3 RATIO (10-20); Calcium,Total 8.1 mg/dL (8.5-10.1); Chloride 102 mmol/L (98-107); Creatinine, Serum 1.33 mg/dL (0.55-1.02); EST Glomerular Filtration Rate 45 mL/min (>60); Est Glom Filt Rate - Afr Amer 55 mL/min (>60); Estimated Creatinine Clearance 50.85 ml/min; Glucose 147 mg/dL (74-106); Potassium 4.2 mmol/L (3.5-5.1); Sodium Level 139 mmol/L (136-145)
[2018-03-16] MEDS: Ondansetron 4 MG/2 ML Vial IV ×2 (16:22→20:25)
[2018-03-16] MEDS: HYDROmorphone 1 MG/ML Syringe IV ×2 (16:22→20:22)
[2018-03-16] MEDS: proMETHazine 25 MG/ML Syringe 6.25 MG IV (17:04)
[2018-03-16] MEDS: Lactated Ringers 1,000 ML 125 ML IV ×2 (17:07→22:31)
[2018-03-16] MEDS: Lactated Ringers 500 ML 999 ML IV (20:00)
[2018-03-16] MEDS: Docusate Sodium 100 MG Capsule PO (22:18)
[2018-03-16] MEDS: Ibuprofen 400 MG Tablet PO (23:43)
[2018-03-17] MEDS: Lactated Ringers 1,000 ML 125 ML IV (02:37)
[2018-03-17] MEDS: oxyCODONE 5 MG Tablet PO (02:38)
[2018-03-17 02:46] VITALS: BP 128/64; PULSE 71; RESP 18; TEMP 36.8; O2SAT 99
[2018-03-17] MEDS: HYDROmorphone 1 MG/ML Syringe IV ×2 (04:06→15:19)
[2018-03-17] MEDS: Ondansetron 4 MG/2 ML Vial IV (04:09)
--- NOTE | 2018-03-17 05:19 | PCM.DC.AHY ---
Discharge Diet: No Restrictions Discharge Activity: May not drive while taking narcotic pain medications., May Shower, May Take a Tub Bath Return to work on:: 04/30/18 May resume sexual activity in: 4-6 weeks Lifting Restrictions: Limit to less than 20 lbs for 4-6 wk to allow healing Call your doctor if your incision/area has: Sudden Increased Bleeding, Increased Pain/ Swelling, Increased Redness Call your doctor if you observe: Fever of 101 or Higher, Inability to urinate, Inability to have a bowel movement, Using more than one pad per hour, Calf discomfort, Uncontrolled pain Change Dressing in (Days):: 7 Remove Dressing in (days):: 7 Cleanse incision/area with: Soap & Water, Keep Dressing Clean & Dry Additional Instructions: You may resume walking and ferry hand activity as tolerated. Walk at least 3 times daily to help prevent blood clots. You may take Tylenol for pain. Add Oxycodone for more severe pain. Limit ibuprofen and Aleve as these are cleared by your kidneys. No heavy lifting and nothing in the vagina for 4-6 wk to allow healing. Allergies/Adverse Reactions: Allergies No Known Allergies Allergy (Verified 03/16/18 09:46) Medications to take at Discharge Cholecalciferol (Vitamin D3) [Vitamin D3] 1,000 unit PO DAILY 01/18/18 Levothyroxine Sodium [Synthroid] 112 mcg PO QHS 01/18/18 Multipak 1 pkg PO DAILY 01/18/18 Vitamin B Complex 1 each PO DAILY 01/18/18 L.acidoph,Paracasei, B.lactis [Probiotic] 1 each PO DAILY 03/12/18 Acetaminophen [Tylenol] 1,000 mg PO Q8H PRN PRN tablet 03/17/18 Docusate Sodium [Colace] 100 mg PO BID #30 capsule 03/17/18 Oxycodone [Oxyir] 5 mg PO Q6H PRN PRN 7 Days #20 tablet 03/17/18 Polyethylene Glycol 3350 [Miralax] 17 gm PO DAILY PRN #14 packet 03/17/18 The following prescriptions were given: Oxycodone [Oxyir] 5 mg PO Q6H PRN PRN 7 Days #20 tablet PRN Reason: Mod-Severe Pain (4-12/20) Polyethylene Glycol 3350 [Miralax] 17 gm PO DAILY PRN #14 packet PRN Reason: Constipation Docusate Sodium [Colace] 100 mg PO BID #30 capsule Primary Care Physician: Kody Franco MD [Primary Care Provider] - Test Results: Test results from this visit will be discussed in further detail at your follow-up appointment, if applicable. Please Follow Up With: Maryann Martinez MD - [phone] When: follow up appointment in the office for postoperative appt in two wks. Proposed Discharge Date: 03/18/18
--- NOTE | 2018-03-17 05:29 | DCINST_ITS ---
Discharge Diet: No Restrictions Discharge Activity: May not drive while taking narcotic pain medications., May Shower, May Take a Tub Bath Return to work on:: 04/30/18 May resume sexual activity in: 4-6 weeks Lifting Restrictions: Limit to less than 20 lbs for 4-6 wk to allow healing Call your doctor if your incision/area has: Sudden Increased Bleeding, Increased Pain/ Swelling, Increased Redness Call your doctor if you observe: Fever of 101 or Higher, Inability to urinate, Inability to have a bowel movement, Using more than one pad per hour, Calf discomfort, Uncontrolled pain Change Dressing in (Days):: 7 Remove Dressing in (days):: 7 Cleanse incision/area with: Soap & Water, Keep Dressing Clean & Dry Additional Instructions: You may resume walking and brush stainer activity as tolerated. Walk at least 3 times daily to help prevent blood clots. You may take Tylenol for pain. Add Oxycodone for more severe pain. Limit ibuprofen and Aleve as these are cleared by your kidneys. No heavy lifting and nothing in the vagina for 4-6 wk to allow healing. Allergies/Adverse Reactions: Allergies No Known Allergies Allergy (Verified 03/16/18 09:46) Medications to take at Discharge Cholecalciferol (Vitamin D3) [Vitamin D3] 1,000 unit PO DAILY 01/18/18 Levothyroxine Sodium [Synthroid] 112 mcg PO QHS 01/18/18 Multipak 1 pkg PO DAILY 01/18/18 Vitamin B Complex 1 each PO DAILY 01/18/18 L.acidoph,Paracasei, B.lactis [Probiotic] 1 each PO DAILY 03/12/18 Acetaminophen [Tylenol] 1,000 mg PO Q8H PRN PRN tablet 03/17/18 Docusate Sodium [Colace] 100 mg PO BID #30 capsule 03/17/18 Oxycodone [Oxyir] 5 mg PO Q6H PRN PRN 7 Days #20 tablet 03/17/18 Polyethylene Glycol 3350 [Miralax] 17 gm PO DAILY PRN #14 packet 03/17/18 The following prescriptions were given: Oxycodone [Oxyir] 5 mg PO Q6H PRN PRN 7 Days #20 tablet PRN Reason: Mod-Severe Pain (4-12/20) Polyethylene Glycol 3350 [Miralax] 17 gm PO DAILY PRN #14 packet PRN Reason: Constipation Docusate Sodium [Colace] 100 mg PO BID #30 capsule Primary Care Physician: Kody Franco MD [Primary Care Provider] - Test Results: Test results from this visit will be discussed in further detail at your follow- up appointment, if applicable. Please Follow Up With: Maryann Martinez MD - [phone] When: follow up appointment in the office for postoperative appt in two wks. Proposed Discharge Date: 03/18/18
[2018-03-17] MEDS: Ibuprofen 400 MG Tablet PO (05:52)
[2018-03-17 07:18] LABS: Hematocrit 33.3 % (37-47); Hemoglobin 10.8 g/dl (12.0-15.0); Mean Corp Hgb Conc 32.4 g/gl (32-36); Mean Corpuscular Hgb 30.3 pg (27.0-32.0); Mean Corpuscular Volume 93.5 fL (81-99); Mean Platelet Vol. 9.2 fl (6.2-12.0); Platelet Count 505 K/mm3 (150-450); RBC Distribution Width CV 12.3 % (11.6-14.6); RBC Distribution Width SD 41.8 fl (35.1-43.9); Red Blood Count 3.56 M/mm3 (4.2-5.4); White Blood Count 18.3 K/mm3 (4.4-11.0)
[2018-03-17 07:20] LABS: Scan Indicated on CBC? Y/N NO
[2018-03-17 07:43] LABS: Creatinine, Serum 0.86 mg/dL (0.55-1.02); EST Glomerular Filtration Rate 75 mL/min (>60); Est Glom Filt Rate - Afr Amer 91 mL/min (>60); Estimated Creatinine Clearance 78.64 ml/min
[2018-03-17 07:44] VITALS: O2SAT 98
--- NOTE | 2018-03-17 08:43 | PN_ITS ---
Subjective: POD#1 Laparoscopy converted to SUSAN, LSO. Lysis of adhesions Doing OK. Painful. States was taking a lot of Motrin/ibuprofen at home prior to surgery. Also felt that the [place]/Vicodin works better for her than the Oxycodone. Minimal bleeding, states nurse just changed pad.. Objective: Lying in bed, appears tired, mildly uncomfortable. - Physical Exam General: Alert, Oriented x3, Cooperative HEENT: Atraumatic Neck: Supple Abdomen: Soft Skin: Incision - Mepilex and op sites all CDI. Peripad with scant spotting only. Psych/Mental Status: Normal Affect Vital Signs Temp Pulse Resp BP Pulse Ox 98.3 F 71 18 128/64 H 99 03/17/18 02:46 03/17/18 02:46 03/17/18 02:46 03/17/18 02:46 03/17/18 02:46 Oxygen Flow Rate (L/min) 2 Oxygen Delivery Method Room Air Weight: 73.4 kg Body Mass Index (BMI) 25.3 Intake and Output for Last 24 Hours 03/15/18 03/16/18 03/17/18 23:59 23:59 23:59 Intake Total 2819 / 2819 400 / 400 Output Total 430 / 430 1000 / 1000 Balance 2389 / 2389 -600 / -600 Laboratory Tests Past 24 Hrs 03/16/18 03/16/18 03/16/18 09:37 09:40 13:14 WBC RBC Hgb Hct MCV MCH MCHC RDW RDW Differential Plt Count MPV Sodium 139 Potassium 4.2 Chloride 102 Carbon Dioxide 27.0 Anion Gap 10 BUN 11 Creatinine 1.33 H Estim Creat Clear Calc 50.85 Est GFR (MDRD) Af Amer 55 L Est GFR (MDRD) Non-Af 45 L BUN/Creatinine Ratio 8.3 L Glucose 147 H Calcium 8.1 L TSH 5.44 H Urine Test Negative 03/17/18 03/17/18 06:32 06:32 WBC 18.3 H RBC 3.56 L Hgb 10.8 L Hct 33.3 L MCV 93.5 MCH 30.3 MCHC 32.4 RDW 12.3 RDW Differential 41.8 Plt Count 505 H MPV 9.2 Sodium Potassium Chloride Carbon Dioxide Anion Gap BUN Creatinine 0.86 Estim Creat Clear Calc 78.64 Est GFR (MDRD) Af Amer 91 Est GFR (MDRD) Non-Af 75 BUN/Creatinine Ratio Glucose Calcium TSH Urine Test Medical Necessity - Tobacco Use Smoking Status: Never smoker Tobacco Use: Non-smoker Assessment/Plan POD#1 S/P laparoscopy, converted to SUSAN, LSO and lysis of adhesions. Stable postop . Reviewed operative findings and labs. #1) renal function. Cr high at surgery and GFR decreasing, may have been due to medications (NSAIDs used) or due to mass effect of the severe adhesions/endometrioma at L adnexa. Today's BMP wnl and improved Cr and GFR #2 pain control Was on high dose Motrin preop. Not enough relief with motrin at present Normal BMP , Cr and GFR. Start Toradol 30 mg IV q 6 hr today Inc diet and activity as tolerated. Begin po Vicodin instead of Oxycodone for pain. Statex Oxycodone less effective in past for her. IV to S/L if tolerating PO. Voiding trial in progress and has already voided since Riley removed. Continue care.
[2018-03-17 09:00] VITALS: BP 107/68; PULSE 70; RESP 20; TEMP 36.6; O2SAT 97
[2018-03-17] MEDS: HYDROcodone Bitartrate/Apap 5/325 Tablet PO ×5 (09:48→23:27)
[2018-03-17] MEDS: Ketorolac 30 MG/ML Syringe IV ×3 (09:50→23:27)
[2018-03-17] MEDS: Docusate Sodium 100 MG Capsule PO ×2 (10:51→20:59)
[2018-03-17] MEDS: Enoxaparin 40 MG/0.4 ML Syringe SC (10:52)
[2018-03-17] MEDS: Polyethylene Glycol 3350 17 GM PACKET PO (10:53)
[2018-03-17 15:00] VITALS: BP 94/55; PULSE 78; RESP 20; TEMP 36.6; O2SAT 97
--- NOTE | 2018-03-17 15:55 | CM.UR ---
genetic physician completed. Met face to face with patient, introduced myself and explained my role. Verbal consent to case mgmt assessment at this time. Denies anticipating any needs upon discharge that her can't help her with. Was previously independent. Her current concern is getting the pain under control. Explained that case management will remain available should any needs arise. Verb understanding. Fatmata Warren RN, [facility].
[2018-03-17] MEDS: 0.9% NaCl Peripheral Flush Adult/Peds IV ×2 (18:01→23:28)
--- NOTE | 2018-03-17 20:14 | NURSING ---
1829 Dr Martinez called , pt pain not controlled on current meds. informed of pt vss and voiding good. Abdomen sl distented and tender to touch, not a new change from earlier this shift, bowel sounds noted. instructed pt about need to ambulate. new orders given. Clare Lopez RN
--- NOTE | 2018-03-17 20:18 | NURSING ---
1899 Dr Martinez called Nurse, new med orders given, see MAR, pt and made aware of changes. Clare Lopez RN
[2018-03-17 20:53] VITALS: BP 94/45; PULSE 81; RESP 14; TEMP 37.2; O2SAT 96
[2018-03-17] MEDS: Levothyroxine 112 MCG Tablet PO (20:59)
[2018-03-18 02:53] VITALS: BP 104/65; PULSE 63; RESP 16; TEMP 36.7; O2SAT 98
[2018-03-18] MEDS: HYDROcodone Bitartrate/Apap 5/325 Tablet PO ×4 (03:44→17:31)
[2018-03-18] MEDS: Ketorolac 30 MG/ML Syringe IV (05:50)
[2018-03-18] MEDS: 0.9% NaCl Peripheral Flush Adult/Peds IV (05:50)
[2018-03-18 06:33] LABS: Hematocrit 30.3 % (37-47); Hemoglobin 9.5 g/dl (12.0-15.0); Mean Corp Hgb Conc 31.4 g/gl (32-36); Mean Corpuscular Hgb 30.4 pg (27.0-32.0); Mean Corpuscular Volume 96.8 fL (81-99); Mean Platelet Vol. 9.3 fl (6.2-12.0); Platelet Count 458 K/mm3 (150-450); RBC Distribution Width CV 12.1 % (11.6-14.6); RBC Distribution Width SD 41.3 fl (35.1-43.9); Red Blood Count 3.13 M/mm3 (4.2-5.4); Scan Indicated on CBC? Y/N NO; White Blood Count 14.5 K/mm3 (4.4-11.0)
[2018-03-18 07:10] LABS: Anion Gap 5 (5-15); BUN 8 mg/dL (7-18); Calcium,Total 7.9 mg/dL (8.5-10.1); Chloride 105 mmol/L (98-107); EST Glomerular Filtration Rate 82 mL/min (>60); Est Glom Filt Rate - Afr Amer 99 mL/min (>60); Estimated Creatinine Clearance 84.54 ml/min; Glucose 109 mg/dL (74-106); Potassium 3.9 mmol/L (3.5-5.1); Sodium Level 140 mmol/L (136-145)
[2018-03-18 07:19] VITALS: O2SAT 95
[2018-03-18 08:20] VITALS: BP 107/61; PULSE 61; RESP 18; TEMP 36.8; O2SAT 96
[2018-03-18] MEDS: Docusate Sodium 100 MG Capsule PO ×2 (08:27→17:31)
[2018-03-18] MEDS: Polyethylene Glycol 3350 17 GM PACKET PO (08:28)
[2018-03-18] MEDS: Enoxaparin 40 MG/0.4 ML Syringe SC (08:28)
[2018-03-18] MEDS: Ibuprofen 400 MG Tablet 800 MG PO (12:19)
--- NOTE | 2018-03-18 14:14 | PN_ITS ---
Subjective: POD#2 S/P laparoscopy, converted to SUSAN, LSO and lysis of adhesions. States much better pain control with two of the Vicodin po q 4 hr. IV terry with the Toradol. Would like to resume Ibuprofen rather than Naproxen or continued Toradol. Tolerating PO ok. Good urine output per RN report. Would like to go home later today if able. Neg flatus, neg stool. States some cramping, gas pain and call feel things moving around. States she has had some vaginal bleeding and was suprised to have any of that due to hysterectomy. 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 Hasn't had soaked pads at all. - Physical Exam General: Alert, Oriented x3, Cooperative, No apparent distress HEENT: Atraumatic Oral: Moist Mucosa Neck: Supple Abdomen: Soft, Distended - tympanitic, minimally tender c/w postop status. Skin: Incision - op sites and Mepilex all CDI. Psych/Mental Status: Normal Affect Vital Signs Temp Pulse Resp BP Pulse Ox 98.3 F 61 18 107/61 96 03/18/18 08:20 03/18/18 08:20 03/18/18 08:20 03/18/18 08:20 03/18/18 08:20 Oxygen Flow Rate (L/min) 1 Oxygen Delivery Method Room Air Weight: 73.4 kg Body Mass Index (BMI) 25.3 Intake and Output for Last 24 Hours 03/16/18 03/17/18 03/18/18 23:59 23:59 23:59 Intake Total 2819 / 2819 1880 / 1880 110 / 110 Output Total 430 / 430 2950 / 2950 600 / 600 Balance 2389 / 2389 -1070 / -1070 -490 / -490 Laboratory Tests Past 24 Hrs 03/18/18 03/18/18 06:10 06:10 WBC 14.5 H RBC 3.13 L Hgb 9.5 L Hct 30.3 L MCV 96.8 MCH 30.4 MCHC 31.4 L RDW 12.1 RDW Differential 41.3 Plt Count 458 H MPV 9.3 Sodium 140 Potassium 3.9 Chloride 105 Carbon Dioxide 30.0 Anion Gap 5 BUN 8 Creatinine 0.80 Estim Creat Clear Calc 84.54 Est GFR (MDRD) Af Amer 99 Est GFR (MDRD) Non-Af 82 BUN/Creatinine Ratio 10.0 Glucose 109 H Calcium 7.9 L Medical Necessity - Tobacco Use Smoking Status: Never smoker Tobacco Use: Non-smoker Assessment/Plan POD#2 S/P laparoscopy, converted to SUSAN, LSO and lysis of adhesions. Stable postop . Reviewed operative findings and labs. #1) renal function. Now wnl , improved Cr and GFR Excellent urine output #2 pain control Toradol 30 mg IV q 6 hr yesterday Continued pain with taking only one Vicodin 4 hr prn. Pain much improved on Toradol but the IV terry. Will resume high dose Ibuprofen 800 mg po q 8 hr prn today. D/C IV toradol #3 Bowel function. abdomen softely distended, tympanitic. Neg flatus. Miralax, Colace bid. Mylicon. declines suppository as of this AM Inc diet and activity as tolerated. Will cancel RX sent to pharmacy for Oxycodone for pain --less effective in past for her. RX sent in for Vicodin 1-2 po q 4 hr prn instead. Consider dischg later today if tolerating po, pain control adequate w/ po meds only, and passing flatus. RTO in 1-2 wk for postop check as scheduled.
[2018-03-18 14:47] VITALS: BP 106/66; PULSE 79; RESP 18; TEMP 36.6; O2SAT 100
--- NOTE | 2018-03-18 18:29 | PCM.DC.SUM ---
Discharge Date and Diagnosis Date of Admission: 03/16/18 Date of Discharge: 03/18/18 - Secondary Discharge Diagnosis Chronic Problems (Last Reviewed 11/16/17 @ 13:58 by Rasheeda Thomas) Hypothyroidism associated with surgical procedure (Chronic) Hospital Course and Treatment Operations: - - Diagnostic Laparoscopy, converted to SUSAN. Total abdominal hysterectomy Left salpingoophorectomy Adhesiolysis Summary of Care Provided: The patient is a 47 year old female with h/o an enlarged, complex appearing left adnexal mass and pelvic pain associated with this finding. She also had a known fibroid uterus. She was scheduled for an operative laparoscopy and left salpingoophorectomy on 03/16/18 and presented to the hospital for this planned outpatient procedure. Findings during surgery included severe pelvic adhesions at the left adnexa due to endometriosis. After discussion with her regarding the need to perform a laparotomy to complete the case, the decision was made to perform the hysterectomy also as she had some continued bleeding after her endometrial ablation. The diagnostic laparoscopy was converted to a total abdominal hysterectomy and left salpingoophorectomy with adhesiolysis. The patient's postoperative course was uneventful . Her kidney function--increased creatinine and low GFR documented at the time of surgery-- improved during the hospital course. She was discharged to home on POD#2 in stable condition with a benign exam. She is to take iron daily for her mild postoperative anemia. - Physical Exam Vital Signs Temp Pulse Resp BP Pulse Ox 97.8 F 79 18 106/66 100 03/18/18 14:47 03/18/18 14:47 03/18/18 14:47 03/18/18 14:47 03/18/18 14:47 Oxygen Flow Rate (L/min) 1 Oxygen Delivery Method Room Air Weight: 73.4 kg Body Mass Index (BMI) 25.3 Intake and Output for Last 24 Hours 03/16/18 03/17/18 03/18/18 23:59 23:59 23:59 Intake Total 2819 / 2819 1880 / 1880 110 / 110 Output Total 430 / 430 2950 / 2950 600 / 600 Balance 2389 / 2389 -1070 / -1070 -490 / -490 Laboratory Tests Past 24 Hrs 03/18/18 03/18/18 06:10 06:10 WBC 14.5 H RBC 3.13 L Hgb 9.5 L Hct 30.3 L MCV 96.8 MCH 30.4 MCHC 31.4 L RDW 12.1 RDW Differential 41.3 Plt Count 458 H MPV 9.3 Sodium 140 Potassium 3.9 Chloride 105 Carbon Dioxide 30.0 Anion Gap 5 BUN 8 Creatinine 0.80 Estim Creat Clear Calc 84.54 Est GFR (MDRD) Af Amer 99 Est GFR (MDRD) Non-Af 82 BUN/Creatinine Ratio 10.0 Glucose 109 H Calcium 7.9 L Discharge Diet: No Restrictions Discharge Activity: May not drive while taking narcotic pain medications., May Shower, May Take a Tub Bath Return to work on:: 04/30/18 May resume sexual activity in: 4-6 weeks Call your doctor if your incision/area has: Sudden Increased Bleeding, Increased Pain/ Swelling, Increased Redness Call your doctor if you observe: Fever of 101 or Higher, Inability to urinate, Inability to have a bowel movement, Using more than one pad per hour, Calf discomfort, Uncontrolled pain Change Dressing in (Days):: 7 Remove Dressing in (days):: 7 Cleanse incision/area with: Soap & Water, Keep Dressing Clean & Dry Home Medications: Medications to take at Discharge Cholecalciferol (Vitamin D3) [Vitamin D3] 1,000 unit PO DAILY 01/18/18 Levothyroxine Sodium [Synthroid] 112 mcg PO QHS 01/18/18 Multipak 1 pkg PO DAILY 01/18/18 Vitamin B Complex 1 each PO DAILY 01/18/18 L.acidoph,Paracasei, B.lactis [Probiotic] 1 each PO DAILY 03/12/18 Acetaminophen [Tylenol] 1,000 mg PO Q8H PRN PRN tablet 03/17/18 Docusate Sodium [Colace] 100 mg PO BID #30 capsule 03/17/18 Oxycodone [Oxyir] 5 mg PO Q6H PRN PRN 7 Days #20 tablet 03/17/18 Polyethylene Glycol 3350 [Miralax] 17 gm PO DAILY PRN #14 packet 03/17/18 Hydrocodone/Acetaminophen [Vicodin 5-300 mg Tablet] 1 - 2 each PO Q4H PRN PRN 7 Days #20 tablet 03/18/18 Ibuprofen 800 mg PO Q8H PRN PRN #30 tablet 03/18/18 Following Prescrptions Were Given to Patient: Hydrocodone/Acetaminophen [Vicodin 5-300 mg Tablet] 1 - 2 each PO Q4H PRN PRN 7 Days #20 tablet PRN Reason: Severe Pain (6-1010) Oxycodone [Oxyir] 5 mg PO Q6H PRN PRN 7 Days #20 tablet PRN Reason: Mod-Severe Pain (4-12/20) Ibuprofen 800 mg PO Q8H PRN PRN #30 tablet PRN Reason: Mild-Mod Pain (1-07/20) Polyethylene Glycol 3350 [Miralax] 17 gm PO DAILY PRN #14 packet PRN Reason: Constipation Docusate Sodium [Colace] 100 mg PO BID #30 capsule Primary Care Physician: Kody Franco MD [Primary Care Provider] - Please Follow Up With: Maryann Martinez MD - [phone] When: follow up appointment in the office for postoperative appt in two wks. Additional Instructions: You may resume walking and security systems specialist activity as tolerated. Walk at least 3 times daily to help prevent blood clots. You may take Tylenol for pain. Add Oxycodone for more severe pain. Limit ibuprofen and Aleve as these are cleared by your kidneys. No heavy lifting and nothing in the vagina for 4-6 wk to allow healing. Medical Necessity - Tobacco Use Smoking Status: Never smoker Tobacco Use: Non-smoker Meaningful Use Info Meaningful Use Diagnoses (Choose all that apply): None applicable
== END 2018-03-18 17:55 | disposition home or self-care (01) | DRG 743 ==
LOC: SDC 03-17 14:30
PROVIDERS: Anesthesiology; Admitting Provider Obstetrics & Gynecology; Family Provider Family Medicine; PCP Family Medicine; Referring Provider Obstetrics & Gynecology; Visit Provider Obstetrics & Gynecology
PROC: 0UT90ZZ Resection of Uterus, Open Approach (ICD-10-PCS; CPT 58720; principal; 2018-03-16 11:15)
DX: N83.202 Unspecified ovarian cyst, left side (principal); D25.9 Leiomyoma of uterus, unspecified; N73.6 Female pelvic peritoneal adhesions (postinfective); N80.9 Endometriosis, unspecified; Z53.31 Laparoscopic surgical procedure converted to open procedure; D64.9 Anemia, unspecified
CPT/HCPCS: 36415; 80048; 81025; 82565; 84443; 85027; 88307; J7120; A4216; J2405

== ENCOUNTER → 2018-05-04 16:12 | Outpatient (CLI) | payer OTHER, SELFPAY ==
[2018-03-16 16:11] VITALS: BMI 25.3
[2018-05-04 17:21] LABS: T4 Free Direct 1.16 ng/dL (0.76-1.46); Thyroid Stim Hormone (TSH) 2.26 uIU/mL (0.358-3.74)
== END ==
PROVIDERS: Family Provider Family Medicine; PCP Family Medicine; Referring Provider Family Medicine; Visit Provider Family Medicine
DX: E03.9 Hypothyroidism, unspecified (principal)
CPT/HCPCS: 36415; 84439; 84443

== ENCOUNTER → 2018-07-05 | Outpatient (CLI) | payer OTHER, SELFPAY ==
[2018-03-16 16:11] VITALS: BMI 25.3
--- NOTE | 2018-07-05 14:35 | RAD_ITS ---
STUDY: X-RAY - ABDOMEN/PELVIS REASON FOR EXAM: Female, 48 years old. Left-sided abdominal pain TECHNIQUE: AP supine and upright views of the abdomen and pelvis. COMPARISON: None. FINDINGS: Normal visualized lung bases. There is an unremarkable bowel gas pattern. There is no demonstrated free abdominal air. The visualized liver, spleen and kidneys are grossly normal in size and morphology. Normal soft tissue structures. Normal visualized osseous structures. RAD/Abdomen Single View IMPRESSION: Normal x-ray examination of the abdomen and pelvis. Electronically Signed: Shaggy Simon MD at 15:29 EDT , Service support ,
== END | disposition home or self-care (01) ==
LOC: HPRAD 14:31
PROVIDERS: Family Provider Family Medicine; PCP Family Medicine; Referring Provider Family Medicine; Visit Provider Family Medicine
DX: R10.9 Unspecified abdominal pain (principal)
CPT/HCPCS: 74018

== ENCOUNTER → 2019-05-10 | Outpatient (CLI) | payer OTHER, SELFPAY ==
[2018-03-16 16:11] VITALS: BMI 25.3
[2019-05-10 10:54] LABS: Insulin 5.2 mU/L (2.6-37.6); Vitamin D,25 Hydroxy 37.1 ng/mL
[2019-05-10 11:15] LABS: Estradiol 280.4 pg/mL; Free T3 2.9 pg/mL (2.18-3.98); Glucose 93 mg/dL (74-106); T4 Free Direct 1.18 ng/dL (0.76-1.46); Thyroid Stim Hormone (TSH) 3.95 uIU/mL (0.358-3.74)
[2019-05-11 06:15] LABS: Sex Hormone-binding Globulin 54.5 nmol/L (24.6-122.0)
[2019-05-15 14:32] LABS: Progesterone Level < 0.21 ng/mL (See Comment)
== END | disposition home or self-care (01) ==
LOC: WOBLAB 09:40
PROVIDERS: PCP Family Medicine; Visit Provider Obstetrics & Gynecology
DX: N92.5 Other specified irregular menstruation (principal); N95.1 Menopausal and female climacteric states
CPT/HCPCS: 36415; 82306; 82627; 82670; 82947; 83525; 84144; 84270; 84403; 84439; 84443; 84481; 82626

== ENCOUNTER 2019-05-24 20:31 | Observation (INO) | payer OTHER, SELFPAY ==
[2018-03-16 16:11] VITALS: BMI 25.3
[2019-05-24 20:31] VITALS: BP 129/76; PULSE 68; RESP 18; TEMP 36.2; O2SAT 100; BMI 27.3
--- NOTE | 2019-05-24 20:43 | CT_ITS ---
STUDY: CT ABDOMEN AND PELVIS WITH CONTRAST REASON FOR EXAM: Female, 48 years old. LLQ PAIN WITH ELEVATED WBC, PAIN STARTED THIS AM, HX LEFT OOPHORECTOMY AND UTERINE ABLATION RADIATION DOSAGE (If Supplied By Facility): CTDIvol = ( 16.45 ) mGy, DLP = ( 1567.61 ) mGycm TECHNIQUE: Transaxial images were obtained from the dome of the diaphragm to the symphysis pubis without oral contrast. Oral and amp; IV Gastrografin and amp; 100mL Isovue-370 was administered. Sagittal and coronal images were reconstructed. Individualized dose optimization techniques were used for this CT. COMPARISON: 03/12/2018. FINDINGS: Lung bases are clear. Heart size is normal. The liver is unremarkable. The gallbladder is unremarkable. The spleen and pancreas are unremarkable. The adrenal glands are normal. Normal right kidney. Mild left renal atrophy. Mild left hydronephrosis and hydroureter, with transition in the left adnexa. There is a 3.5 x 3.2 cm complex left adnexal lesion, suspicious for recurrent or residual lesion. This is the most likely source of the patient''s left hydronephrosis. The aorta is normal in caliber. There is no free fluid or free air. No bowel obstruction or inflammatory change. Urinary bladder is nondistended. Uterus is surgically absent. Normal abdominal wall. Normal osseous structures. CT/Abdomen/Pelvis WITH Contrast IMPRESSION: 1. Recurrent or residual left adnexal complex lesion. Malignancy is not excluded. In the context of elevated white count, abscess is an additional consideration. ELECTRICAL INSTRUMENT REPAIRER referral is advised. 2. Mild left hydroureteronephrosis due to left adnexal mass. N.B. : The above information has been verbally conveyed by Fannie Sanon MD to Aleksandra Ortega MD, on 05/24/2019 23:32:22 (ET). Electronically Signed: Fannie Sanon MD at 23:34 EDT Tel , Service support ,
--- NOTE | 2019-05-24 20:44 | ED.VIS.GEN ---
History of Present Illness Chief Complaint: Abd Pain Informant: Patient Onset: Today Context: Gradual Onset Current Severity: Moderate Maximum Severity: Severe Narrative: Patient presents with left lower quadrant kimo pain. Pain started early this afternoon and is continued to worsen. She denies nausea, vomiting, or diarrhea. She is not eaten since noon today. She denies urinary symptoms. Patient has a history of ovarian cyst. She had a hysterectomy with left oophorectomy performed in March 2018. Denies history of diverticulitis. No history of bowel obstructions. Patient did have 2 bowel movements today. She denies fever or chills. - Past Medical History (1) History of hysterectomy Status: Chronic (2) Hypothyroidism associated with surgical procedure Status: Chronic Past Medical History - Allergies and Home Meds Allergies/Adverse Reactions: Allergies No Known Allergies Allergy (Verified 03/16/18 09:46) Primary Care Physician: Kody Franco MD [Primary Care Provider] - Prior records reviewed: Yes Surgical History: hysterectomy Lives: Spouse/ Significant Other Smoking Status: Never smoker Review of Systems General: Denies: Chills, Fever Eyes: Denies: Visual changes - bilaterally ENT: Denies: Bilateral ear pain Cardiovascular: Denies: Chest pain Respiratory: Denies: Dyspnea, Cough Gastrointestinal: Reports: Abdominal pain. Denies: Nausea, Vomiting, Diarrhea Genitourinary: Denies: Dysuria Musculoskeletal: Denies: Swelling, Extremity Pain Skin: Denies: Rash Neurological: Denies: Headache Allergy: Denies: Uticaria Physical Exam Vital Signs/Narrative: Vital Signs Temp Pulse Resp BP Pulse Ox 05/24/19 20:31 97.2 F L 68 18 129/76 H 100 Inital Vital Signs reviewed: Yes General: Well nourished, Well developed Head: Normocephalic ENT: Moist mucous membranes Neck: Supple Cardiovascular: Regular rate, Regular rhythm Respiratory: No distress, CTA bilaterally Abdomen: Soft, Tender - Tender palpation both in the epigastrium as well as in the left lower quadrant., Hypoactive bowel sounds. Negative for: Guarding, Rebound tenderness Extremities: Nontender Skin: Normal color, No rash Neurological: Alert, Oriented x3 Psychological: Normal affect Diagnostic/Tx/Re-eval Impressions Abdomen/Pelvis CT 05/24/19 20:43 IMPRESSION: 1. Recurrent or residual left adnexal complex lesion. Malignancy is not excluded. In the context of elevated white count, abscess is an additional consideration. PHYSICAL THERAPY ASSISTANT INSTRUCTOR referral is advised. 2. Mild left hydroureteronephrosis due to left adnexal mass. N.B. : The above information has been verbally conveyed by Fannie Sanon MD to Aleksandra Ortega MD, on 05/24/2019 23:32:22 (ET). Electronically Signed: Fannie Sanon MD at 23:34 EDT Tel , Service support , ADDENDUM: 05/24/19 2341 IMPRESSION: 1. Recurrent or residual left adnexal complex lesion. Malignancy is not excluded. In the context of elevated white count, abscess is an additional consideration. PHYSICAL THERAPY ASSISTANT INSTRUCTOR referral is advised. 2. Mild left hydroureteronephrosis due to left adnexal mass. N.B. : The above information has been verbally conveyed by Fannie Sanon MD to Aleksandra Ortega MD, on 05/24/2019 23:32:22 (ET). Electronically Signed: Fannie Sanon MD at 23:34 EDT Tel , Service support , 05/24/19 20:43 Abdomen/Pelvis WITH Contrast [CT] Stat 05/24/19 23:33 Transvaginal Non- [US] Stat Laboratory Results 05/24/19 05/24/19 05/24/19 19:55 19:55 22:08 WBC 11.6 H RBC 4.63 Hgb 14.4 Hct 43.9 MCV 94.8 MCH 31.1 MCHC 32.8 RDW Std Deviation 42.1 RDW Coeff of [place] 12.2 Plt Count 300 MPV 10.5 Immature Gran % (Auto) 0.300 Neut % (Auto) 71.8 H Lymph % (Auto) 16.1 L [place] % (Auto) 7.6 Eos % (Auto) 3.3 Baso % (Auto) 0.9 Absolute Neuts (auto) 8.4 H Absolute Lymphs (auto) 1.87 Nucleated RBC % 0 Sodium 138 Potassium 4.0 Chloride 102 Carbon Dioxide 27.0 Anion Gap 9 BUN 16 Creatinine 0.96 Estim Creat Clear Calc 69.69 Est GFR (MDRD) Af Amer 80 Est GFR (MDRD) Non-Af 66 BUN/Creatinine Ratio 16.7 Glucose 112 H Calcium 9.5 Total Bilirubin 0.70 Direct Bilirubin 0.14 AST 20 ALT 24 Alkaline Phosphatase 59 Total Protein 7.5 Albumin 3.9 Globulin 3.6 Lipase 250 Urine Color Yellow Urine Clarity Sl. Cloudy Urine pH 7.0 Ur Specific [place] 1.015 Urine Protein 15 H Urine Glucose (UA) Normal Urine Ketones 150 H Urine Occult Blood Negative Urine Nitrite Negative Urine Bilirubin Negative Urine Urobilinogen Normal Ur Leukocyte Esterase Negative Urine RBC 0-5 SEEN Urine WBC 0-5 SEEN Ur Squamous Epith Cells 0-5 SEEN Urine Bacteria RARE Urine Mucus 0 SEEN - Medical Decision Making Patient was given 2 doses of Dilaudid along with some Zofran for pain. CT scan reveals an abnormal septated mass in the left lower quadrant. Ultrasound has been obtained. I did speak with Dr. Hayder Mulligan, FUNCTIONAL TESTER [employer]WRIT[employer]. Oncoming physician will check ultrasound report and call her with these results. ED Disposition - Plan for ED Patient: Referrals: Kody rFanco MD [Primary Care Provider] -
[2019-05-24] MEDS: Ondansetron 4 MG/2 ML Vial IV (21:00)
[2019-05-24] MEDS: HYDROmorphone 1 MG/ML Syringe 0.5 MG IV (21:01)
[2019-05-24] MEDS: 0.9% Normal Saline 1,000 ML 150 ML IV (21:03)
[2019-05-24 21:07] LABS: Absolute Lymphocyte Count 1.87 X10^3/uL (0.83-4.51); Absolute Neutrophil Count 8.4 X10^3/uL (2.0-7.7); Basophil# 0.11 X10^3/uL; Basophil% 0.9 % (0-1); Eosinophil# 0.38 X10^3/uL; Eosinophils% 3.3 % (0-5); Hematocrit 43.9 % (37-47); Hemoglobin 14.4 g/dL (12.0-15.0); Lymphocyte # 1.87 X10^3/ul (4.0); Lymphocyte % 16.1 % (19-41); Mean Corp Hgb Conc 32.8 g/dL (32-36); Mean Corpuscular Hgb 31.1 pg (27.0-32.0); Mean Corpuscular Volume 94.8 fL (81-99); Mean Platelet Vol. 10.5 fl (6.2-12.0); Monocyte# 0.88 X10^3/uL; Monocyte% 7.6 % (0-10); NRBC Flagged by Analyzer 0 % (0-5); Neutrophil # 8.35 X10^3/uL (2.7-7.7); Neutrophil % 71.8 % (47-70); Platelet Count 300 K/mm3 (150-450); RBC Distribution Width CV 12.2 % (11.6-14.6); RBC Distribution Width SD 42.1 fl (35.1-43.9); Red Blood Count 4.63 M/mm3 (4.2-5.4); White Blood Count 11.6 K/mm3 (4.4-11.0)
[2019-05-24 21:27] LABS: AST(SGOT) 20 U/L (15-37); Alanine Aminotransfer ALT/SGPT 24 U/L (13-56); Albumin, Serum 3.9 g/dL (3.2-5.0); Alkaline Phosphatase 59 U/L (45-117); Anion Gap 9 (5-15); BUN 16 mg/dL (7-18); BUN/Creat Ratio 16.7 RATIO (10-20); Bilirubin, Direct 0.14 mg/dL (0.00-0.30); Calcium,Total 9.5 mg/dL (8.5-10.1); Chloride 102 mmol/L (98-107); Creatinine, Serum 0.96 mg/dL (0.55-1.02); EST Glomerular Filtration Rate 66 mL/min (>60); Est Glom Filt Rate - Afr Amer 80 mL/min (>60); Estimated Creatinine Clearance 69.69 ml/min; Globulin 3.6 g/dL (2.2-4.2); Glucose 112 mg/dL (74-106); Lipase 250 U/L (73-393); Protein, Total 7.5 g/dL (6.4-8.2); Sodium Level 138 mmol/L (136-145)
[2019-05-24] MEDS: HYDROmorphone 0.5 MG/0.5 ML SYRINGE IV (21:36)
[2019-05-24 22:00] VITALS: BP 118/70; PULSE 55; RESP 15; O2SAT 98
[2019-05-24 22:13] LABS: Mucous, Urine 0 SEEN /hpf (<or=2+)
[2019-05-24 22:32] LABS: Color, Urine Yellow (Yellow); Glucose, Dipstick Normal (Normal); Leukocyte Esterase-Dipstick Negative /ul (Negative); Nitrite-Dipstick Negative (Negative); Occult Blood-Urine Negative /ul (Negative); Protein-Dipstick 15 mg/dl (Negative); Specific Gravity, Urine 1.015 (1.002-1.030); Urine Bilirubin Dipstick Negative (Negative); Urine Clarity Sl. Cloudy (Clear); Urine Urobilinogen Normal (Normal)
[2019-05-24 22:50] LABS: Bacteria RARE /hpf (None Seen); Red Blood Cells-Urine 0-5 SEEN /hpf (0-5); Squamous Epithelial Cells - UA 0-5 SEEN /hpf (5-10); White Blood Cells 0-5 SEEN /hpf (0-5)
[2019-05-24 22:51] LABS: Ketone-Dipstick 150 mg/dl (Negative)
--- NOTE | 2019-05-24 23:33 | US_ITS ---
STUDY: ULTRASOUND TRANSVAGINAL CLINICAL: Female, [address] S/P HYSTERECTOMY AND LT OOPHORECTMY TECHNIQUE: Transvaginal COMPARISON: None. FINDINGS: The uterus and the left ovary have been removed. The right ovary could not be visualized. 2 cystic structures on the left side of the pelvis measuring respectively 3.3 x 3.6 x 2.7 cm and 2.6 x 1.9 x 1.8 cm. There is no free fluid in the pelvis. US/Transvaginal Non- IMPRESSION: 2 cystic structures on the left side of the pelvis measuring respectively 3.3 x 3.6 x 2.7 cm and 2.6 x 1.9 x 1.8 cm. Most likely represent adnexal cysts. Electronically Signed: Mayito Barros, at 1:23 EDT Tel , Service support ,
[2019-05-25 00:18] VITALS: BP 130/72; PULSE 64; RESP 15; O2SAT 97
[2019-05-25] MEDS: HYDROmorphone 0.5 MG/0.5 ML SYRINGE IV (00:50)
--- NOTE | 2019-05-25 01:45 | ED.DCSUM_ITS ---
- ER Visit Summary Date of Service: 05/25/19 Chief Complaint: [] History of Present Illness: The patient is a 48 F [] Physical Examination: [] Test Results: [] Emergency Department Course and Treatment: Patient signed out to me follow-up on ultrasound. Results noting previous hysterectomy and left oophorectomy. However there is 2 cystic structures on the left side 3.3 x 3.6 x 2.7 cm and 2.6 x 1.9 x 1.8 cm likely concerning for adnexal cyst. I reevaluated patient pain is down to a 5 compared to a 9-10 per patient. Patient with her pain is not comfortable enough to go home with outpatient follow-up. I did speak with Dr. Hayder Mulligan who evaluate the patient in the ED for admission for symptom control. Treatment Plan: [] Disposition: Admission Impression: 1. Left adnexal cyst x2 2. Pelvic pain This note was generated with [employer] dictation software. It may contain incorrect words, spelling, and punctuation that were not noted in review of the chart prior to signing ED Disposition - Plan for ED Patient: Disposition: Acute Care Hospital [facility] Diagnosis: Adnexal cyst, Pelvic pain Referrals: Kody Franco MD [Primary Care Provider] -
--- NOTE | 2019-05-25 02:26 | HP.PCM_ITS ---
Problem List (1) Adnexal cyst Status: Acute Comment: left History of Present Illness Date of Admission: 05/25/19 Chief Complaint: abdominal pain The patient is a 48 year old F para 2 with hx endometriosis s/p hysterectomy with severe lower abdominal pain, worsening since this morning. She had a hx abdominal pain related to left ovarian cyst, uterine fibroids and underwent SUSAN, LSO 03/2018. Severe endometriosis was incidentally found at that time and the cyst as an endometrioma. She had an uncomplicated postoperative course with resolution of her abdominal pain until this episode. Pain is severe, nonradiating with no precipitants or alleviators. Pain 10/10 on arrival and at present 8/10. Past Medical History Past Medical History (Chronic Problems): Chronic Problems (Last Updated 05/25/19 @ 02:[address] Trudy Kerns MD) Hypothyroidism associated with surgical procedure (Chronic) History of hysterectomy (Chronic) Medical History: Medical History (Last Updated 05/25/19 @ 02:[address] 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 Carpal tunnel syndrome G56.00 Chronic headaches R51 High cholesterol E78.00 Hypothyroidism E03.9 Vision problem H54.7 Allergies No Known Allergies Allergy (Verified 03/16/18 09:46) Home Medications: Ambulatory Orders Medication Instructions Recorded Cholecalciferol (Vitamin D3) 1,000 unit PO DAILY 01/18/18 [Vitamin D3] Levothyroxine Sodium [Synthroid] 112 mcg PO QHS 01/18/18 Multipak 1 pkg PO DAILY 01/18/18 Vitamin B Complex 1 each PO DAILY 01/18/18 L.acidoph,Paracasei, B.lactis 1 each PO DAILY 03/12/18 [Probiotic] Hydrocodone Bitart/Apap 5-325 1 tab PO Q6H PRN PRN 7 Days #5 tab 05/25/19 [[place] 5/325] Ketorolac [Toradol] 10 mg PO Q6H PRN #16 tab 05/25/19 Surgical History: Surgical History (Last Updated 05/25/19 @ 02:[address] 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 Denies: Chills, Fever, Weakness Cardiovascular: Denies: Chest Pain Respiratory: Denies: Shortness of Breath Gastrointestinal: Reports: Abdominal Pain, - - reports gas problems for 3-4 years, believes it is IBS. Denies: Constipation, Diarrhea, Nausea, Vomiting Genitourinary: Denies: Dysuria, Frequency, Hematuria VTE Information - Inpt Only VTE Present on Admission: Yes VTE Pharm Prophylaxis ordered?: No Patient Problems: Active and Suspected Problems (Last Updated 05/25/19 @ 02:[address] Trudy Kerns MD) Adnexal cyst (Acute) left Pelvic pain (Acute) - Physical Exam Vitals/I&O's: Vital Signs Temp Pulse Resp BP Pulse Ox 97.2 F L 64 15 130/72 H 97 05/24/19 20:31 05/25/19 00:18 05/25/19 00:18 05/25/19 00:18 05/25/19 00:18 Oxygen Delivery Method Room Air Weight: 79.379 kg Body Mass Index (BMI) 27.3 General: Alert, Oriented x3, Cooperative, No apparent distress HEENT: Atraumatic, Normocephalic Lungs: Clear to auscultation, Normal air movement Cardiovascular: Regular rate, Regular Rhythm, Normal S1, Normal S2, No murmurs Abdomen: Soft, Non-Distended, - - mild left lower quadrant tenderness, no rebound or guarding Extremities: No edema, No Calf Tenderness Neurological: Neuro grossly intact Psych/Mental Status: Normal Affect, Appropriate, Alert and oriented to time, place, person, mood and affect Laboratory Results 05/24/19 19:55: WBC 11.6 H, RBC 4.63, Hgb 14.4, Hct 43.9, MCV 94.8, MCH 31.1, MCHC 32.8, RDW Std Deviation 42.1, RDW Coeff of [place] 12.2, Plt Count 300, MPV 10.5, Immature Gran % (Auto) 0.300, Neut % (Auto) 71.8 H, Lymph % (Auto) 16.1 L, [place] % (Auto) 7.6, Eos % (Auto) 3.3, Baso % (Auto) 0.9, Absolute Neuts (auto) 8.4 H, Absolute Lymphs (auto) 1.87, Nucleated RBC % 0 05/24/19 19:55: Sodium 138, Potassium 4.0, Chloride 102, Carbon Dioxide 27.0, Anion Gap 9, BUN 16, Creatinine 0.96, Estim Creat Clear Calc 69.69, Est GFR (MDRD) Af Amer 80, Est GFR (MDRD) Non-Af 66, BUN/Creatinine Ratio 16.7, Glucose 112 H, Calcium 9.5, Total Bilirubin 0.70, Direct Bilirubin 0.14, AST 20, ALT 24, Alkaline Phosphatase 59, Total Protein 7.5, Albumin 3.9, Globulin 3.6, Lipase 250 05/24/19 22:08: Urine Color Yellow, Urine Clarity Sl. Cloudy, Urine pH 7.0, Ur Specific [place] 1.015, Urine Protein 15 H, Urine Glucose (UA) Normal, Urine Ketones 150 H, Urine Occult Blood Negative, Urine Nitrite Negative, Urine Bilirubin Negative, Urine Urobilinogen Normal, Ur Leukocyte Esterase Negative, Urine RBC 0-5 SEEN, Urine WBC 0-5 SEEN, Ur Squamous Epith Cells 0-5 SEEN, Urine Bacteria RARE, Urine Mucus 0 SEEN Impressions Abdomen/Pelvis CT 05/24/19 20:43 IMPRESSION: 1. Recurrent or residual left adnexal complex lesion. Malignancy is not excluded. In the context of elevated white count, abscess is an additional consideration. CALL CENTER SUPPORT REPRESENTATIVE referral is advised. 2. Mild left hydroureteronephrosis due to left adnexal mass. N.B. : The above information has been verbally conveyed by Fannie Sanon MD to Aleksandra Ortega MD, on 05/24/2019 23:32:22 (ET). Electronically Signed: Fannie Sanon MD at 23:34 EDT Tel , Service support , ADDENDUM: 05/24/19 2186 IMPRESSION: 1. Recurrent or residual left adnexal complex lesion. Malignancy is not excluded. In the context of elevated white count, abscess is an additional consideration. CALL CENTER SUPPORT REPRESENTATIVE referral is advised. 2. Mild left hydroureteronephrosis due to left adnexal mass. N.B. : The above information has been verbally conveyed by Fannie Sanon MD to Aleksandra Ortega MD, on 05/24/2019 23:32:22 (ET). Electronically Signed: Fannie Sanon MD at 23:34 EDT Tel , Service support , Transvaginal US 05/24/19 23:33 IMPRESSION: 2 cystic structures on the left side of the pelvis measuring respectively 3.3 x 3.6 x 2.7 cm and 2.6 x 1.9 x 1.8 cm. Most likely represent adnexal cysts. Electronically Signed: Mayito Barros at 1:23 EDT Tel , Service support , 05/24/19 20:43 Abdomen/Pelvis WITH Contrast [CT] Stat 05/24/19 23:33 Transvaginal Non- [US] Stat Laboratory Results 05/24/19 05/24/19 05/24/19 19:55 19:55 22:08 WBC 11.6 H RBC 4.63 Hgb 14.4 Hct 43.9 MCV 94.8 MCH 31.1 MCHC 32.8 RDW Std Deviation 42.1 RDW Coeff of [place] 12.2 Plt Count 300 MPV 10.5 Immature Gran % (Auto) 0.300 Neut % (Auto) 71.8 H Lymph % (Auto) 16.1 L [place] % (Auto) 7.6 Eos % (Auto) 3.3 Baso % (Auto) 0.9 Absolute Neuts (auto) 8.4 H Absolute Lymphs (auto) 1.87 Nucleated RBC % 0 Sodium 138 Potassium 4.0 Chloride 102 Carbon Dioxide 27.0 Anion Gap 9 BUN 16 Creatinine 0.96 Estim Creat Clear Calc 69.69 Est GFR (MDRD) Af Amer 80 Est GFR (MDRD) Non-Af 66 BUN/Creatinine Ratio 16.7 Glucose 112 H Calcium 9.5 Total Bilirubin 0.70 Direct Bilirubin 0.14 AST 20 ALT 24 Alkaline Phosphatase 59 Total Protein 7.5 Albumin 3.9 Globulin 3.6 Lipase 250 Urine Color Yellow Urine Clarity Sl. Cloudy Urine pH 7.0 Ur Specific [place] 1.015 Urine Protein 15 H Urine Glucose (UA) Normal Urine Ketones 150 H Urine Occult Blood Negative Urine Nitrite Negative Urine Bilirubin Negative Urine Urobilinogen Normal Ur Leukocyte Esterase Negative Urine RBC 0-5 SEEN Urine WBC 0-5 SEEN Ur Squamous Epith Cells 0-5 SEEN Urine Bacteria RARE Urine Mucus 0 SEEN Current Medications Sodium Chloride () 1,000 mls @ 150 mls/hr IV .[id number] JANAE Last Admin: 05/24/19 21:03 Dose: 150 mls/hr Documented by: Assessment/Plan All Active Problems (Last Updated 05/25/19 @ 02:[address] Trudy Kerns MD) Fibromyalgia (Acute) Adnexal cyst (Acute) Pelvic pain (Acute) 48yo with L. 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 Hydronephrosis likely chronic 2/2 endometriosis given persistence in imaging over time. -Reviewed imaging studies with patient. Cyst itself is surgical issue. Recommend diagnostic laparoscopy, cyst removal and surgical treatment of endometriosis with advanced laparoscopist. Suspect Stage IV disease given ureteral involvement and prior operative report. -Admit for pain control. Pt and reported concerns about poor pain control in the past. Goals of care established. -Will plan for outpatient consultation with endometriosis excision specialist.
[2019-05-25 02:50] VITALS: BP 116/88; PULSE 65; RESP 14; TEMP 36.6; O2SAT 99
[2019-05-25 03:07] VITALS: BP 116/68; PULSE 65; RESP 14; TEMP 36.6; O2SAT 99
[2019-05-25 03:08] VITALS: BMI 27.4
[2019-05-25 03:15] VITALS: BMI 27.9
[2019-05-25] MEDS: Ketorolac 30 MG/ML Syringe IV ×2 (03:27→09:37)
[2019-05-25] MEDS: 0.9% Saline Lock 10 ML Syringe IV ×2 (03:27→09:38)
[2019-05-25 07:21] VITALS: O2SAT 96
[2019-05-25] MEDS: Famotidine 20 MG Tablet PO (09:37)
[2019-05-25 10:00] VITALS: BP 104/60; PULSE 72; RESP 18; TEMP 36.6; O2SAT 100
--- NOTE | 2019-05-25 10:28 | PN.OBGYN_ITS ---
Patient Problems: Active and Suspected Problems (Last Updated 05/25/19 @ 02:[address] Trudy Kerns MD) Adnexal cyst (Acute) left Pelvic pain (Acute) Subjective: Reports pain is 0 to 0.5/10. Pain nearly resolved. No complaints. She would like to go home. Objective: AVSS - Physical Exam Vitals/I&O's: Vital Signs Temp Pulse Resp BP Pulse Ox 97.9 F 65 14 116/88 H 96 05/25/19 04:11 05/25/19 04:11 05/25/19 04:11 05/25/19 04:11 05/25/19 07:21 Oxygen Delivery Method Room Air Weight: 80.9 kg Body Mass Index (BMI) 27.9 Intake and Output for Last 24 Hours 05/23/19 05/24/19 05/25/19 23:59 23:59 23:59 Intake Total 980 / 980 Balance 980 / 980 General: Alert, Oriented x3, Cooperative, No apparent distress HEENT: Atraumatic, Normocephalic Lungs: Normal air movement Abdomen: Soft, Non Tender, Non-Distended Extremities: No edema, No Calf Tenderness Neurological: Neuro grossly intact Psych/Mental Status: Normal Affect, Appropriate, Alert and oriented to time, place, person, mood and affect Laboratory Results 05/24/19 19:55: WBC 11.6 H, RBC 4.63, Hgb 14.4, Hct 43.9, MCV 94.8, MCH 31.1, MCHC 32.8, RDW Std Deviation 42.1, RDW Coeff of [place] 12.2, Plt Count 300, MPV 10.5, Immature Gran % (Auto) 0.300, Neut % (Auto) 71.8 H, Lymph % (Auto) 16.1 L, [place] % (Auto) 7.6, Eos % (Auto) 3.3, Baso % (Auto) 0.9, Absolute Neuts (auto) 8.4 H, Absolute Lymphs (auto) 1.87, Nucleated RBC % 0 05/24/19 19:55: Sodium 138, Potassium 4.0, Chloride 102, Carbon Dioxide 27.0, Anion Gap 9, BUN 16, Creatinine 0.96, Estim Creat Clear Calc 69.69, Est GFR (MDR D) Af Amer 80, Est GFR (MDRD) Non-Af 66, BUN/Creatinine Ratio 16.7, Glucose 112 H, Calcium 9.5, Total Bilirubin 0.70, Direct Bilirubin 0.14, AST 20, ALT 24, Alkaline Phosphatase 59, Total Protein 7.5, Albumin 3.9, Globulin 3.6, Lipase 250 05/24/19 22:08: Urine Color Yellow, Urine Clarity Sl. Cloudy, Urine pH 7.0, Ur Specific [place] 1.015, Urine Protein 15 H, Urine Glucose (UA) Normal, Urine Ketones 150 H, Urine Occult Blood Negative, Urine Nitrite Negative, Urine Bilirubin Negative, Urine Urobilinogen Normal, Ur Leukocyte Esterase Negative, Urine RBC 0-5 SEEN, Urine WBC 0-5 SEEN, Ur Squamous Epith Cells 0-5 SEEN, Urine Bacteria RARE, Urine Mucus 0 SEEN Current Medications Hydrocodone Bitart/Acetaminophen ([place] 5mg-325mg) 2 tablet PO Q4H PRN PRN PRN Reason: Pain Score 6-10/10 Famotidine (Pepcid) 20 mg PO BID [facility] Last Admin: 05/25/19 09:37 Dose: 20 mg Documented by: Glucagon () 1 mg IM .X1 PRN PRN Reason: Hypoglycemia Hydromorphone HCl (Dilaudid Inj) 0.5 mg IV Q3H PRN PRN Reason: Pain Score 6-10/10 Dextrose (Dextrose 10%-Water) 250 mls @ 999 mls/hr IV .Q16M PRN; Protocol PRN Reason: HYPOGLYCEMIA Ketorolac Tromethamine (Toradol (Bkc)) 30 mg IV Q6H [facility] Stop: 05/26/19 21:05 Last Admin: 05/25/19 09:37 Dose: 30 mg Documented by: Levothyroxine Sodium (Synthroid) 112 mcg PO QHS [facility] Magnesium Hydroxide (Milk Of Magnesia) 30 ml PO DAILY PRN PRN PRN Reason: Constipation Ondansetron HCl (Zofran) 4 mg IV TID PRN PRN Reason: NAUSEA Sodium Chloride () 10 - 40 ml IV UD PRN PRN Reason: SALINE FLUSH Last Admin: 05/25/19 09:38 Dose: 10 ml Documented by: Zolpidem Tartrate (Ambien (Generic)) 5 mg PO QHS PRN PRN PRN Reason: INSOMNIA Medical Necessity - Tobacco Use Smoking Status: Never smoker Assessment/Plan All Active Problems (Last Updated 05/25/19 @ 02:[address] Trudy Kerns MD) Adnexal cyst (Acute) Pelvic pain (Acute) 48yo with L. 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 Hydronephrosis likely chronic 2/2 endometriosis given persistence in imaging over time. -Pain controlled -Will d/c home with PO Toradol, Vicodin for breakthrough pain -f/u outpatient
--- NOTE | 2019-05-25 10:32 | PCM.DC ---
- Discharge Diagnoses Current Active Problems: Current Active and Chronic Problems (Last Updated 05/25/19 @ 02:[address] Trudy Kerns MD) Adnexal cyst (Acute) left Pelvic pain (Acute) Reason(s) for Visit for Discharge Instructions: Left pelvic cyst You will use the following diet at home:: No restrictions Your food should be the consistency of: Regular Discharge Activity: Return to Normal Activity, May Drive, May Shower, May Take a Tub Bath Call your doctor if you observe: Fever of 101 or Higher, Inability to urinate, Uncontrolled pain Allergies/Adverse Reactions: Allergies No Known Allergies Allergy (Verified 05/25/19 03:16) Medications to take at Discharge Cholecalciferol (Vitamin D3) [Vitamin D3] 1,000 unit PO DAILY 01/18/18 Levothyroxine Sodium [Synthroid] 112 mcg PO QHS 01/18/18 Multipak 1 pkg PO DAILY 01/18/18 Vitamin B Complex 1 each PO DAILY 01/18/18 L.acidoph,Paracasei, B.lactis [Probiotic] 1 each PO DAILY 03/12/18 Hydrocodone Bitart/Apap 5-325 [[place] 5/325] 1 tab PO Q6H PRN PRN 7 Days #5 tab 05/25/19 Ketorolac [Toradol] 10 mg PO Q6H PRN #16 tab 05/25/19 The following prescriptions were given: Hydrocodone Bitart/Apap 5-325 [[place] 5/325] 1 tab PO Q6H PRN PRN 7 Days #5 tab PRN Reason: Pain Score 6-10/10 Prescription Printed Ketorolac [Toradol] 10 mg PO Q6H PRN #16 tab PRN Reason: pain Transmission Status: Sent to [facility] Primary Care Physician: Kody Franco MD [Primary Care Provider] - Test Results: Test results from this visit will be discussed in further detail at your follow-up appointment, if applicable. Please Follow Up With: Trudy Kerns MD When: 06/21/19 at 0830h for annual exam
--- NOTE | 2019-05-25 10:37 | PCM.DC.SUM ---
Discharge Date and Diagnosis - Problem List Patient Problems: Active and Suspected Problems (Last Updated 05/25/19 @ 02:[address] Trudy Kerns MD) Adnexal cyst (Acute) left Pelvic pain (Acute) Date of Admission: 05/25/19 Date of Discharge: 05/25/19 - Primary Discharge Diagnosis Active and Suspected Problems (Last Updated 05/25/19 @ 02:[address] Trudy Kerns MD) Adnexal cyst (Acute) left Pelvic pain (Acute) - Secondary Discharge Diagnosis Chronic Problems (Last Updated 05/25/19 @ 02:[address] Trudy Kerns MD) Fibromyalgia (Chronic) Hypothyroidism associated with surgical procedure (Chronic) History of hysterectomy (Chronic) Hospital Course and Treatment Imaging Results: Diagnostic Data Abdomen/Pelvis CT 05/24/19 20:43 IMPRESSION: 1. Recurrent or residual left adnexal complex lesion. Malignancy is not excluded. In the context of elevated white count, abscess is an additional consideration. 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 2. Mild left hydroureteronephrosis due to left adnexal mass. N.B. : The above information has been verbally conveyed by Fannie Sanon MD to Aleksandra Ortega MD, on 05/24/2019 23:32:22 (ET). Electronically Signed: Fannie Sanon MD at 23:34 EDT Tel , Service support , ADDENDUM: 05/24/19 2341 IMPRESSION: 1. Recurrent or residual left adnexal complex lesion. Malignancy is not excluded. In the context of elevated white count, abscess is an additional consideration. 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 2. Mild left hydroureteronephrosis due to left adnexal mass. N.B. : The above information has been verbally conveyed by Fannie Sanon MD to Aleksandra Ortega MD, on 05/24/2019 23:32:22 (ET). Electronically Signed: Fannie Sanon MD at 23:34 EDT Tel , Service support , Transvaginal US 05/24/19 23:33 IMPRESSION: 2 cystic structures on the left side of the pelvis measuring respectively 3.3 x 3.6 x 2.7 cm and 2.6 x 1.9 x 1.8 cm. Most likely represent adnexal cysts. Electronically Signed: Mayito Barros, at 1:23 EDT Tel , Service support , Operations: None Summary of Care Provided: The patient is a 48 year old F para 2 with hx endometriosis s/p hysterectomy, LSO presents with acute lower abdominal pain x 1. CT A/P and pelvic US demonstrated L. adnexal mass consistent with pelvic cyst with chronic mild hydronephrosis. She was admitted for pain control. On repeat evaluation reported pain resolved and was discharged to home. Patient Problems: Active and Suspected Problems (Last Updated 05/25/19 @ 02:[address] Trudy Kerns MD) Adnexal cyst (Acute) left Pelvic pain (Acute) - Physical Exam Vitals/I&O's: Vital Signs Temp Pulse Resp BP Pulse Ox 97.9 F 65 14 116/88 H 96 05/25/19 04:11 05/25/19 04:11 05/25/19 04:11 05/25/19 04:11 05/25/19 07:21 Oxygen Delivery Method Room Air Weight: 80.9 kg Body Mass Index (BMI) 27.9 Intake and Output for Last 24 Hours 05/23/19 05/24/19 05/25/19 23:59 23:59 23:59 Intake Total 980 / 980 Balance 980 / 980 Laboratory Results 05/24/19 19:55: WBC 11.6 H, RBC 4.63, Hgb 14.4, Hct 43.9, MCV 94.8, MCH 31.1, MCHC 32.8, RDW Std Deviation 42.1, RDW Coeff of [place] 12.2, Plt Count 300, MPV 10.5, Immature Gran % (Auto) 0.300, Neut % (Auto) 71.8 H, Lymph % (Auto) 16.1 L, [place] % (Auto) 7.6, Eos % (Auto) 3.3, Baso % (Auto) 0.9, Absolute Neuts (auto) 8.4 H, Absolute Lymphs (auto) 1.87, Nucleated RBC % 0 05/24/19 19:55: Sodium 138, Potassium 4.0, Chloride 102, Carbon Dioxide 27.0, Anion Gap 9, BUN 16, Creatinine 0.96, Estim Creat Clear Calc 69.69, Est GFR (MDRD) Af Amer 80, Est GFR (MDRD) Non-Af 66, BUN/Creatinine Ratio 16.7, Glucose 112 H, Calcium 9.5, Total Bilirubin 0.70, Direct Bilirubin 0.14, AST 20, ALT 24, Alkaline Phosphatase 59, Total Protein 7.5, Albumin 3.9, Globulin 3.6, Lipase 250 05/24/19 22:08: Urine Color Yellow, Urine Clarity Sl. Cloudy, Urine pH 7.0, Ur Specific [place] 1.015, Urine Protein 15 H, Urine Glucose (UA) Normal, Urine Ketones 150 H, Urine Occult Blood Negative, Urine Nitrite Negative, Urine Bilirubin Negative, Urine Urobilinogen Normal, Ur Leukocyte Esterase Negative, Urine RBC 0-5 SEEN, Urine WBC 0-5 SEEN, Ur Squamous Epith Cells 0-5 SEEN, Urine Bacteria RARE, Urine Mucus 0 SEEN Current Medications Hydrocodone Bitart/Acetaminophen ([place] 5mg-325mg) 2 tablet PO Q4H PRN PRN PRN Reason: Pain Score 6-10/10 Famotidine (Pepcid) 20 mg PO BID [facility] Last Admin: 05/25/19 09:37 Dose: 20 mg Documented by: Glucagon () 1 mg IM .X1 PRN PRN Reason: Hypoglycemia Hydromorphone HCl (Dilaudid Inj) 0.5 mg IV Q3H PRN PRN Reason: Pain Score 6-10/10 Dextrose (Dextrose 10%-Water) 250 mls @ 999 mls/hr IV .Q16M PRN; Protocol PRN Reason: HYPOGLYCEMIA Ketorolac Tromethamine (Toradol (Bkc)) 30 mg IV Q6H [facility] Stop: 05/26/19 21:05 Last Admin: 05/25/19 09:37 Dose: 30 mg Documented by: Levothyroxine Sodium (Synthroid) 112 mcg PO QHS [facility] Magnesium Hydroxide (Milk Of Magnesia) 30 ml PO DAILY PRN PRN PRN Reason: Constipation Ondansetron HCl (Zofran) 4 mg IV TID PRN PRN Reason: NAUSEA Sodium Chloride () 10 - 40 ml IV UD PRN PRN Reason: SALINE FLUSH Last Admin: 05/25/19 09:38 Dose: 10 ml Documented by: Zolpidem Tartrate (Ambien (Generic)) 5 mg PO QHS PRN PRN PRN Reason: INSOMNIA Discharge Diet: No Restrictions Discharge Activity: Return to Normal Activity, May Drive, May Shower, May Take a Tub Bath Call your doctor if you observe: Fever of 101 or Higher, Inability to urinate, Uncontrolled pain Home Medications: Medications to take at Discharge Cholecalciferol (Vitamin D3) [Vitamin D3] 1,000 unit PO DAILY 01/18/18 Levothyroxine Sodium [Synthroid] 112 mcg PO QHS 01/18/18 Multipak 1 pkg PO DAILY 01/18/18 Vitamin B Complex 1 each PO DAILY 01/18/18 L.acidoph,Paracasei, B.lactis [Probiotic] 1 each PO DAILY 03/12/18 Hydrocodone Bitart/Apap 5-325 [[place] 5/325] 1 tab PO Q6H PRN PRN 7 Days #5 tab 05/25/19 Ketorolac [Toradol] 10 mg PO Q6H PRN #16 tab 05/25/19 Following Prescrptions Were Given to Patient: Hydrocodone Bitart/Apap 5-325 [[place] 5/325] 1 tab PO Q6H PRN PRN 7 Days #5 tab PRN Reason: Pain Score 6-10/10 Prescription Printed Ketorolac [Toradol] 10 mg PO Q6H PRN #16 tab PRN Reason: pain Transmission Status: Sent to [facility] Primary Care Physician: Kody Franco MD [Primary Care Provider] - Please Follow Up With: Trudy Kerns MD When: 06/21/19 at 0830h for annual exam Medical Necessity - Tobacco Use Smoking Status: Never smoker Meaningful Use Info Meaningful Use Diagnoses (Choose all that apply): None applicable
== END 2019-05-25 12:05 | disposition home or self-care (01) ==
LOC: ED 05-25 01:45 → MS3 05-25 02:38
PROVIDERS: Admitting Provider Obstetrics & Gynecology; Emergency Provider Emergency Medicine; PCP Family Medicine; Visit Provider Obstetrics & Gynecology
DX: N94.89 Other specified conditions associated with female genital organs and menstrual cycle (principal); R10.2 Pelvic and perineal pain; E89.0 Postprocedural hypothyroidism; Z79.899 Other long term (current) drug therapy; M79.7 Fibromyalgia
CPT/HCPCS: 74177; 76830; 80048; 80076; 81001; 83690; 85025; 96361; 96374; 96375; 96376; 99218; 99282; J7030; Q9967; A4216; G0378; J2405

== ENCOUNTER → 2019-09-12 | Outpatient (CLI) | payer OTHER, SELFPAY ==
--- NOTE | 2019-09-12 12:40 | BI_ITS ---
MAMMOGRAPHY - BILATERAL SCREENING REASON FOR EXAM: Female, 49 years old. Routine annual screening examination. PERTINENT HISTORY: Non-contributory. TECHNIQUE: Digital bilateral breast zach (3D mammographic acquisition) in the CC and MLO projections. 2-D mediolateral oblique (MLO) and craniocaudad (CC) views of both breasts were obtained. CAD: Full Field Digital Mammography with Computer Added Detection was performed. COMPARISON: Comparison is made with prior study dated November 16, 2017 and August 25, 2016. FINDINGS: Breast Composition: The breasts are extremely dense, which lowers the sensitivity of mammography. There are no dominant masses or suspicious calcifications. No other significant abnormalities are identified. There has been no significant change since the prior study. BI/SCREEN MAMM (CAD) W/ZACH BILAT IMPRESSION: Stable bilateral screening mammogram. Yearly follow-up mammogram recommended. (A) ASSESSMENT CATEGORY: BIRADS Category 1: Negative. A letter regarding these results will be sent to the patient by the facility within 30 days. Approximately 10% of breast cancers are not detected by mammography. A normal mammogram should not delay biopsy of a clinically suspicious abnormality. [id number] Electronically Signed: Eric Saha, at 8:14 EDT , Service support ,
== END | disposition home or self-care (01) ==
LOC: OPBI 12:39
PROVIDERS: PCP Family Medicine; Referring Provider Obstetrics & Gynecology; Visit Provider Obstetrics & Gynecology
DX: Z12.31 Encounter for screening mammogram for malignant neoplasm of breast (principal)
CPT/HCPCS: 77063; 77067

== ENCOUNTER → 2020-03-09 13:27 | Outpatient (CLI) | payer OTHER, SELFPAY ==
[2020-03-09 13:01] VITALS: BMI 25.0
[2020-03-09 16:21] LABS: ALB/GLOB Ratio 1.1 RATIO (0.9-2.4); AST(SGOT) 19 U/L (15-37); Alanine Aminotransfer ALT/SGPT 24 U/L (13-56); Albumin, Serum 3.7 g/dL (3.2-5.0); Alkaline Phosphatase 60 U/L (45-117); Anion Gap 3 (5-15); BUN 19 mg/dL (7-18); BUN/Creat Ratio 21.3 RATIO (10-20); Chloride 105 mmol/L (98-107); Cholesterol 251 mg/dL (200); Creatinine, Serum 0.89 mg/dL (0.55-1.02); EST Glomerular Filtration Rate 71 mL/min (>60); Est Glom Filt Rate - Afr Amer 86 mL/min (>60); Follicle Stimulating Hormone 38.9 mIU/mL; Globulin 3.3 g/dL (2.2-4.2); Glucose 93 mg/dL (74-106); High Density Lipoprotein 72 mg/dL; Luteinizing Hormone 46.6 mIU/mL; Potassium 4.5 mmol/L (3.5-5.1); Sodium Level 140 mmol/L (136-145); T4 Free Direct 1.09 ng/dL (0.76-1.46); Thyroid Stim Hormone (TSH) 0.29 uIU/mL (0.358-3.74); Triglycerides 138 mg/dL; Very Low Density Lipoprotein 28 mg/dL (5-40)
== END ==
PROVIDERS: PCP Family Medicine; Referring Provider Internal Medicine Endocrinology, Diabetes & Metabolism; Visit Provider Internal Medicine Endocrinology, Diabetes & Metabolism
DX: E89.0 Postprocedural hypothyroidism (principal); R23.2 Flushing
CPT/HCPCS: 36415; 80053; 80061; 83001; 83002; 84439; 84443

== ENCOUNTER → 2020-03-20 | Outpatient (CLI) | payer OTHER, SELFPAY ==
[2020-03-09 13:01] VITALS: BMI 25.0
== END | disposition home or self-care (01) ==
LOC: LABSPEC 17:32
PROVIDERS: PCP Family Medicine; Referring Provider Family Medicine; Visit Provider Family Medicine
DX: U07.1 COVID-19 (principal)
CPT/HCPCS: 87635; C9803; U0005; U0003

== ENCOUNTER → 2020-10-29 12:11 | Outpatient (CLI) | payer OTHER, SELFPAY ==
[2020-03-09 13:01] VITALS: BMI 25.0
--- NOTE | 2020-10-29 12:13 | BI_ITS ---
MAMMOGRAPHY - BILATERAL SCREENING REASON FOR EXAM: Female, 50 years old. Routine annual screening examination. PERTINENT HISTORY: Non-contributory. TECHNIQUE: Digital bilateral breast zach (3D mammographic acquisition) in the CC and MLO projections. 2-D mediolateral oblique (MLO) and craniocaudad (CC) views of both breasts were obtained. CAD: Full Field Digital Mammography with Computer Added Detection was performed. COMPARISON: Comparison is made with prior study of 09/12/2019 and 11/16/2017. FINDINGS: Breast Composition: The breasts are extremely dense, which lowers the sensitivity of mammography. There are no dominant masses or suspicious calcifications. No other significant abnormalities are identified. There has been no significant change since the prior study. BI/SCRN MAMM (CAD)W/ZACH BILAT IMPRESSION: Stable bilateral screening mammogram. Yearly follow-up mammogram recommended. (A) ASSESSMENT CATEGORY: BIRADS Category 1: Negative. A letter regarding these results will be sent to the patient by the facility within 30 days. Approximately 10% of breast cancers are not detected by mammography. A normal mammogram should not delay biopsy of a clinically suspicious abnormality. [id number] Electronically Signed: Eric Saha MD at 13:54 EDT , Service support ,
--- NOTE | 2020-10-29 12:30 | BD_ITS ---
STUDY: DUAL ENERGY X-RAY ABSORPTIOMETRY / DXA REASON FOR EXAM: Female, 50 years old. Screening, early menopause TECHNIQUE: Bone Mineral Density (BMD) measurements of lumbar spine and bilateral hips were obtained. COMPARISON: None. FINDINGS: Lumbar Spine (L1-L4): g/cm2 (1.072) / T-score (0.2) / Z-score (1.0) Findings are suggestive of normal bone density with a low fracture risk. Left Femur Total: g/cm2 (1.002) / T-score (0.5) / Z-score (1.0) Left Femoral Neck: g/cm2 (0.814) / T-score (-0.3) / Z-score (0.4) Right Femur Total: g/cm2 (1.001) / T-score (0.5) / Z-score (1.0) Right Femoral Neck: g/cm2 (0.821) / T-score (-0.3) / Z-score (0.5) BD/Dexa Bone Density Study IMPRESSION: The patient is considered normal as outlined below according to World Magdi Organization (WHO) criteria with a low fracture risk. Reference Information: The T-score is the number of standard deviations above or below the standard which is normal for young adults at their peak bone mineral density. The World Health Organization (WHO) interprets the T-scores as follows: Above -1 Normal bone density Between -1 and -2.5 Osteopenia Equal to / or below -2.5 Osteoporosis As a practical clinical guideline, osteopenia may be graded as follows: Mild -1 through -1.5 Moderate -1.6 through -2.0 Severe -2.1 through -2.4 The Z-score is the number of standard deviations above or below age-matched controls. A Z-score of less than -1.5 would be considered abnormal. References: 1. NIH Osteoporosis and Related Bone Diseases www osteo.org 2. International Society for Clinical Densitometry www iscd.org 3. National Osteoporosis Foundation www nof.org Electronically Signed: Eric Saha MD at 8:35 EDT , Service support ,
== END ==
PROVIDERS: PCP Family Medicine; Referring Provider Obstetrics & Gynecology; Visit Provider Internal Medicine Endocrinology, Diabetes & Metabolism
DX: Z12.31 Encounter for screening mammogram for malignant neoplasm of breast (principal); Z78.0 Asymptomatic menopausal state
CPT/HCPCS: 77063; 77067; 77080

== ENCOUNTER → 2021-08-05 | Outpatient (CLI) | payer OTHER, SELFPAY ==
[2021-08-05 14:17] LABS: Absolute Lymphocyte Count 1.21 X10^3/uL (0.83-4.51); Absolute Neutrophil Count 3.5 X10^3/uL (2.0-7.7); Basophil# 0.05 X10^3/uL; Basophil% 0.9 % (0-1); Eosinophil# 0.16 X10^3/uL; Hematocrit 44.1 % (37-47); Hemoglobin 14.3 g/dL (12.0-15.0); Lymphocyte # 1.21 X10^3/ul (0.83-4.51); Lymphocyte % 22.8 % (19-41); Mean Corp Hgb Conc 32.4 g/dL (32-36); Mean Corpuscular Hgb 31.4 pg (27.0-32.0); Mean Corpuscular Volume 96.7 fL (81-99); Mean Platelet Vol. 10.6 fl (6.2-12.0); Monocyte# 0.38 X10^3/uL; Monocyte% 7.2 % (0-10); NRBC Flagged by Analyzer 0 % (0-5); Neutrophil % 65.9 % (47-70); Platelet Count 305 K/mm3 (150-450); RBC Distribution Width CV 12.4 % (11.6-14.6); RBC Distribution Width SD 44.4 fl (35.1-43.9); Red Blood Count 4.56 M/mm3 (4.2-5.4); White Blood Count 5.3 K/mm3 (4.4-11.0)
[2021-08-05 14:35] LABS: ALB/GLOB Ratio 1.2 RATIO (0.9-2.4); AST(SGOT) 21 U/L (15-37); Alanine Aminotransfer ALT/SGPT 26 U/L (13-56); Alkaline Phosphatase 68 U/L (45-117); Anion Gap 7 (5-15); BUN 16 mg/dL (7-18); BUN/Creat Ratio 14.8 RATIO (10-20); CRP < 2.90 mg/L (0.0-3.0); Calcium,Total 9.4 mg/dL (8.5-10.1); Chloride 103 mmol/L (98-107); Cholesterol 262 mg/dL (200); Creatinine, Serum 1.08 mg/dL (0.55-1.02); EST Glomerular Filtration Rate 57 mL/min (>60); Est Glom Filt Rate - Afr Amer 69 mL/min (>60); Estradiol 231.5 pg/mL; Free T3 2.9 pg/mL (2.18-3.98); Globulin 3.3 g/dL (2.2-4.2); Glucose 79 mg/dL (74-106); High Density Lipoprotein 80 mg/dL; Potassium 4.4 mmol/L (3.5-5.1); Protein, Total 7.3 g/dL (6.4-8.2); Sodium Level 141 mmol/L (136-145); T4 Free Direct 1.28 ng/dL (0.76-1.46); T4 Total, Thyroxin 10.6 ug/dL (4.8-13.9); Thyroid Stim Hormone (TSH) 2.01 uIU/mL (0.358-3.74); Triglycerides 73 mg/dL; Very Low Density Lipoprotein 15 mg/dL (5-40)
[2021-08-05 15:06] LABS: Hemoglobin A1c 5.8 % (3.8-5.6)
[2021-08-05 23:19] LABS: Progesterone Level < 0.21 ng/mL (See Comment)
[2021-08-10 22:06] LABS: DHEA Sulfate 89.7 ug/dL (41.2-243.7)
[2021-08-11 09:10] LABS: Thyroglobulin Antibody 22.6 IU/mL (0.0-0.9); Thyroid Peroxidase AB 23 IU/mL (0-34)
== END | disposition home or self-care (01) ==
LOC: LABSPEC 13:47
PROVIDERS: PCP Family Medicine; Referring Provider Nurse Practitioner Family; Visit Provider Nurse Practitioner Family
DX: R53.83 Other fatigue (principal); F32.A Depression, unspecified; E03.9 Hypothyroidism, unspecified; R00.2 Palpitations
CPT/HCPCS: 80053; 80061; 82627; 82670; 83036; 84144; 84436; 84439; 84443; 84481; 85025; 86140; 86376; 86800; 82626

== ENCOUNTER → 2021-10-08 | Outpatient (CLI) | payer OTHER, SELFPAY ==
[2021-10-08 15:18] LABS: Progesterone Level 22.14 ng/mL (See Comment)
[2021-10-08 15:22] LABS: Estradiol 198.2 pg/mL; T4 Free Direct 1.52 ng/dL (0.76-1.46); Thyroid Stim Hormone (TSH) 0.01 uIU/mL (0.358-3.74)
== END | disposition home or self-care (01) ==
LOC: LAB 13:58
PROVIDERS: PCP Nurse Practitioner Family; Visit Provider Nurse Practitioner Family
DX: E03.9 Hypothyroidism, unspecified (principal); N95.1 Menopausal and female climacteric states
CPT/HCPCS: 36415; 82670; 84144; 84439; 84443; 84481

== ENCOUNTER → 2021-12-24 | Outpatient (CLI) | payer OTHER, SELFPAY ==
--- NOTE | 2021-12-24 13:38 | BI_ITS ---
MAMMOGRAPHY - BILATERAL SCREENING REASON FOR EXAM: Female, 51 years old. Routine annual screening examination. PERTINENT HISTORY: Non-contributory. TECHNIQUE: Digital bilateral breast zach (3D mammographic acquisition) in the CC and MLO projections. 2-D mediolateral oblique (MLO) and craniocaudad (CC) views of both breasts were obtained. CAD: Full Field Digital Mammography with Computer Added Detection was performed. COMPARISON: Comparison is made with prior study 10/29/2020 and 09/12/2019. FINDINGS: Breast Composition: The breasts are extremely dense, which lowers the sensitivity of mammography. There are no dominant masses or suspicious calcifications. No other significant abnormalities are identified. There has been no significant change since the prior study. BI/SCRN MAMM (CAD)W/ZACH BILAT IMPRESSION: Stable bilateral screening mammogram. Yearly follow-up mammogram recommended. (A) ASSESSMENT CATEGORY: BIRADS Category 1: Negative. A letter regarding these results will be sent to the patient by the facility within 30 days. Approximately 10% of breast cancers are not detected by mammography. A normal mammogram should not delay biopsy of a clinically suspicious abnormality. [id number] Electronically Signed: Eric Saha MD at 14:26 EDT ,
== END | disposition home or self-care (01) ==
LOC: OPBI 13:37
PROVIDERS: PCP Nurse Practitioner Family; Referring Provider Student in an Organized Health Care Education/Training Program; Visit Provider Student in an Organized Health Care Education/Training Program
DX: Z12.31 Encounter for screening mammogram for malignant neoplasm of breast (principal)
CPT/HCPCS: 77063; 77067

== ENCOUNTER → 2022-03-31 | Outpatient (CLI) | payer OTHER, SELFPAY ==
[2022-03-31 16:15] LABS: Absolute Lymphocyte Count 1.61 X10^3/uL (0.83-4.51); Absolute Neutrophil Count 4.5 X10^3/uL (2.0-7.7); Basophil# 0.04 X10^3/uL; Basophil% 0.6 % (0-1); Eosinophil# 0.16 X10^3/uL; Eosinophils% 2.4 % (0-5); Hematocrit 42.8 % (37-47); Hemoglobin 13.9 g/dL (12.0-15.0); Lymphocyte # 1.61 X10^3/ul (0.83-4.51); Lymphocyte % 24.1 % (19-41); Mean Corp Hgb Conc 32.5 g/dL (32-36); Mean Corpuscular Hgb 30.8 pg (27.0-32.0); Mean Corpuscular Volume 94.9 fL (81-99); Mean Platelet Vol. 9.8 fl (6.2-12.0); Monocyte# 0.33 X10^3/uL; Monocyte% 4.9 % (0-10); NRBC Flagged by Analyzer 0 % (0-5); Neutrophil # 4.53 X10^3/uL (2.7-7.7); Neutrophil % 67.7 % (47-70); Platelet Count 328 K/mm3 (150-450); RBC Distribution Width SD 41.8 fl (35.1-43.9); Red Blood Count 4.51 M/mm3 (4.2-5.4); White Blood Count 6.7 K/mm3 (4.4-11.0)
[2022-03-31 16:49] LABS: Progesterone Level 12.85 ng/mL (See Comment); Vitamin B12 1308 pg/mL (211-911)
[2022-03-31 16:57] LABS: ALB/GLOB Ratio 0.9 RATIO (0.9-2.4); AST(SGOT) 18 U/L (15-37); Alanine Aminotransfer ALT/SGPT 23 U/L (13-56); Albumin, Serum 3.4 g/dL (3.2-5.0); Alkaline Phosphatase 61 U/L (45-117); Anion Gap 3 (5-15); BUN 22 mg/dL (7-18); BUN/Creat Ratio 23.5 RATIO (10-20); Chloride 104 mmol/L (98-107); Creatinine, Serum 0.94 mg/dL (0.55-1.02); EST Glomerular Filtration Rate 67 mL/min (>60); Est Glom Filt Rate - Afr Amer 81 mL/min (>60); Free T3 2.5 pg/mL (2.18-3.98); Globulin 3.6 g/dL (2.2-4.2); Glucose 92 mg/dL (74-106); Sodium Level 137 mmol/L (136-145); T4 Free Direct 1.57 ng/dL (0.76-1.46); Thyroid Stim Hormone (TSH) 0.01 uIU/mL (0.358-3.74)
[2022-04-01 08:28] LABS: Estradiol 550.2 pg/mL
[2022-04-04 22:06] LABS: DHEA Sulfate 94.1 ug/dL (41.2-243.7)
[2022-04-04 22:11] LABS: Thyroglobulin Antibody 9.4 IU/mL (0.0-0.9); Thyroid Peroxidase AB 14 IU/mL (0-34)
== END | disposition home or self-care (01) ==
LOC: LAB 14:50
PROVIDERS: PCP Nurse Practitioner Family; Visit Provider Nurse Practitioner Family
DX: N95.1 Menopausal and female climacteric states (principal); R53.83 Other fatigue; N95.8 Other specified menopausal and perimenopausal disorders; E28.39 Other primary ovarian failure; E03.9 Hypothyroidism, unspecified; M79.7 Fibromyalgia; F41.9 Anxiety disorder, unspecified
CPT/HCPCS: 36415; 80053; 82306; 82607; 82627; 82670; 82672; 84144; 84403; 84432; 84439; 84443; 84481; 85025; 86376; 86800; 82626

== ENCOUNTER → 2022-05-19 | Outpatient (CLI) | payer OTHER, SELFPAY ==
[2022-05-19 17:13] LABS: Progesterone Level 4.45 ng/mL (See Comment)
[2022-05-19 19:27] LABS: Estradiol 181.8 pg/mL; Free T3 2.4 pg/mL (2.18-3.98); T4 Free Direct 1.36 ng/dL (0.76-1.46); Thyroid Stim Hormone (TSH) 0.04 uIU/mL (0.358-3.74)
== END | disposition home or self-care (01) ==
LOC: LAB 13:50
PROVIDERS: PCP Nurse Practitioner Family; Visit Provider Nurse Practitioner Family
DX: E03.9 Hypothyroidism, unspecified (principal); E28.39 Other primary ovarian failure
CPT/HCPCS: 36415; 82670; 84144; 84403; 84439; 84443; 84481

== ENCOUNTER → 2023-06-08 | Outpatient (CLI) | payer OTHER, SELFPAY ==
[2023-06-08 15:12] LABS: Absolute Lymphocyte Count 1.75 X10^3/uL (0.83-4.51); Basophil# 0.12 X10^3/uL; Basophil% 1.4 % (0-1); Eosinophil# 0.84 X10^3/uL; Hematocrit 42.6 % (37-47); Hemoglobin 13.5 g/dL (12.0-15.0); Lymphocyte # 1.75 X10^3/ul (0.83-4.51); Lymphocyte % 20.7 % (19-41); Mean Corp Hgb Conc 31.7 g/dL (32-36); Mean Corpuscular Hgb 30.2 pg (27.0-32.0); Mean Corpuscular Volume 95.3 fL (81-99); Mean Platelet Vol. 10.1 fl (6.2-12.0); Monocyte# 0.67 X10^3/uL; Monocyte% 7.9 % (0-10); NRBC Flagged by Analyzer 0 % (0-5); Neutrophil # 5.03 X10^3/uL (2.7-7.7); Neutrophil % 59.6 % (47-70); Platelet Count 297 K/mm3 (150-450); RBC Distribution Width CV 12.3 % (11.6-14.6); Red Blood Count 4.47 M/mm3 (4.2-5.4); White Blood Count 8.4 K/mm3 (4.4-11.0)
[2023-06-09 07:23] LABS: AST(SGOT) 27 U/L (15-37); Alanine Aminotransfer ALT/SGPT 34 U/L (13-56); Albumin, Serum 3.5 g/dL (3.2-5.0); Alkaline Phosphatase 66 U/L (45-117); Anion Gap 4 (5-15); BUN 27 mg/dL (7-18); BUN/Creat Ratio 23.1 RATIO (10-20); Calcium,Total 9.1 mg/dL (8.5-10.1); Chloride 104 mmol/L (98-107); Creatinine, Serum 1.17 mg/dL (0.55-1.02); EST Glomerular Filtration Rate 51 mL/min (>60); Est Glom Filt Rate - Afr Amer 62 mL/min (>60); Free T3 2.7 pg/mL (2.18-3.98); Globulin 3.4 g/dL (2.2-4.2); Glucose 135 mg/dL (74-106); Potassium 4.4 mmol/L (3.5-5.1); Protein, Total 6.9 g/dL (6.4-8.2); Sodium Level 140 mmol/L (136-145); T4 Free Direct 1.34 ng/dL (0.76-1.46); Thyroid Stim Hormone (TSH) 0.06 uIU/mL (0.358-3.74)
== END | disposition home or self-care (01) ==
LOC: LAB 14:50
PROVIDERS: PCP Nurse Practitioner Family; Referring Provider Nurse Practitioner Family; Visit Provider Nurse Practitioner Family
DX: E03.8 Other specified hypothyroidism (principal); R53.82 Chronic fatigue, unspecified
CPT/HCPCS: 36415; 80053; 84439; 84443; 84481; 85025

== ENCOUNTER → 2023-06-14 | Outpatient (CLI) | payer OTHER, SELFPAY ==
[2023-06-14 14:00] LABS: Microalbumin,Random Urine 5.9 mg/L (NO RANGE EST.)
== END | disposition home or self-care (01) ==
LOC: LABSPEC 12:39
PROVIDERS: PCP Nurse Practitioner Family; Referring Provider Nurse Practitioner Family; Visit Provider Nurse Practitioner Family
DX: N18.31 Chronic kidney disease, stage 3a (principal)
CPT/HCPCS: 82043

== ENCOUNTER → 2023-07-03 | Outpatient (CLI) | payer OTHER, SELFPAY ==
[2023-07-03 13:11] LABS: Bacteria 0 SEEN /hpf (None Seen); Mucous, Urine 0 SEEN /hpf (<or=2+); Red Blood Cells-Urine 0 SEEN /hpf (0-5); Squamous Epithelial Cells - UA 0 SEEN /hpf (5-10); White Blood Cells 0 SEEN /hpf (0-5)
[2023-07-03 13:33] LABS: Color, Urine Yellow (Yellow); Glucose, Dipstick Normal (Normal); Ketone-Dipstick Negative (Negative); Leukocyte Esterase-Dipstick 25 /ul (Negative); Nitrite-Dipstick Negative (Negative); Occult Blood-Urine Negative /ul (Negative); Protein-Dipstick Negative (Negative); Urine Bilirubin Dipstick Negative (Negative); Urine Clarity Clear (Clear); Urine Urobilinogen Normal (Normal)
== END | disposition home or self-care (01) ==
LOC: LABSPEC 12:38
PROVIDERS: PCP Nurse Practitioner Family; Referring Provider Nurse Practitioner Family; Visit Provider Nurse Practitioner Family
DX: N18.31 Chronic kidney disease, stage 3a (principal)
CPT/HCPCS: 81001

== ENCOUNTER → 2023-07-14 | Outpatient (CLI) | payer OTHER, SELFPAY ==
[2023-07-14 11:01] LABS: AST(SGOT) 17 U/L (15-37); Alanine Aminotransfer ALT/SGPT 25 U/L (13-56); Albumin, Serum 3.6 g/dL (3.2-5.0); Alkaline Phosphatase 66 U/L (45-117); Amylase 80 U/L (25-115); Anion Gap 1 (5-15); BUN 20 mg/dL (7-18); BUN/Creat Ratio 16.8 RATIO (10-20); Calcium,Total 9.5 mg/dL (8.5-10.1); Chloride 108 mmol/L (98-107); Creatinine, Serum 1.19 mg/dL (0.55-1.02); EST Glomerular Filtration Rate 50 mL/min (>60); Est Glom Filt Rate - Afr Amer 61 mL/min (>60); Globulin 3.5 g/dL (2.2-4.2); Glucose 89 mg/dL (74-106); Lipase 81 U/L (13-75); Potassium 4.3 mmol/L (3.5-5.1); Protein, Total 7.1 g/dL (6.4-8.2); Sodium Level 141 mmol/L (136-145)
== END | disposition home or self-care (01) ==
LOC: LAB 10:12
PROVIDERS: PCP Nurse Practitioner Family; Referring Provider Nurse Practitioner Family; Visit Provider Nurse Practitioner Family
DX: R10.10 Upper abdominal pain, unspecified (principal)
CPT/HCPCS: 36415; 80053; 82150; 83690

== ENCOUNTER → 2023-09-08 | Outpatient (CLI) | payer OTHER, SELFPAY ==
[2023-09-08 15:50] LABS: ALB/GLOB Ratio 1.2 RATIO (0.9-2.4); AST(SGOT) 19 U/L (15-37); Alanine Aminotransfer ALT/SGPT 25 U/L (13-56); Albumin, Serum 3.7 g/dL (3.2-5.0); Alkaline Phosphatase 70 U/L (45-117); Anion Gap 4 (5-15); BUN 24 mg/dL (7-18); BUN/Creat Ratio 20.3 RATIO (10-20); Calcium,Total 9.1 mg/dL (8.5-10.1); Chloride 103 mmol/L (98-107); Creatinine, Serum 1.18 mg/dL (0.55-1.02); EST Glomerular Filtration Rate 51 mL/min (>60); Est Glom Filt Rate - Afr Amer 62 mL/min (>60); Globulin 3.2 g/dL (2.2-4.2); Glucose 138 mg/dL (74-106); Hemoglobin A1c 5.5 % (3.8-5.6); Magnesium 2.3 mg/dL (1.6-2.6); Phosphorus 3.1 mg/dL (2.5-4.9); Potassium 4.3 mmol/L (3.5-5.1); Protein, Total 6.9 g/dL (6.4-8.2); Sodium Level 138 mmol/L (136-145)
== END | disposition home or self-care (01) ==
LOC: LAB 14:49
PROVIDERS: PCP Nurse Practitioner Family; Referring Provider Nurse Practitioner Family; Visit Provider Nurse Practitioner Family
DX: N18.31 Chronic kidney disease, stage 3a (principal)
CPT/HCPCS: 36415; 80053; 83036; 83735; 84100

== ENCOUNTER 2023-12-14 11:11 | Inpatient (IN) | payer OTHER, SELFPAY ==
[2023-12-14 11:12] VITALS: BP 166/90; PULSE 108; RESP 16; TEMP 36.6; O2SAT 98; BMI 22.7
--- NOTE | 2023-12-14 11:18 | EX.ED.DYSGE1 ---
HPI History of Present Illness Chief Complaint: Nausea/Vomiting/Diarrhea Informant: patient and spouse/S.O. Onset/Context/Timing Onset: Yesterday Context: Gradual Onset Timing: Continuous Quality: Cramping Location: Diffuse Worsened by: Nothing Relieved by: Vomiting Narrative Narrative: Patient presents with nausea, vomiting, and diarrhea that began early yesterday morning. Patient states she has been unable to keep anything down since yesterday. Patient states her diarrhea has been watery and yellow. Patient admits to diffuse cramping abdominal pain. Patient denies any hematemesis or coffee-ground emesis. Patient denies any melena or hematochezia. Patient denies any urinary complaints. Patient admits to a fever up to 101.5 at home. [facility] Medical History (Updated 12/14/23 @ 14:[address] Ronnie Garcia DO) Vision problem Hypothyroidism High cholesterol Chronic headaches Carpal tunnel syndrome Back problem Anxiety and depression Home Medications ?Medication ?Instructions ?Recorded ?Last Taken ?Type Multipak 1 pkg PO DAILY supplement 01/18/18 05/24/19 History cholecalciferol (vitamin D3) 25 1,000 unit PO DAILY vitamin 01/18/18 05/24/19 History mcg (1,000 unit) capsule (Vitamin D3) vitamin B complex 1 ea PO DAILY supplement 01/18/18 05/24/19 History L.acidoph, paracasei,B. lactis 10 1 ea PO DAILY probiotic 03/12/18 05/24/19 History billion cell capsule bupropion HCl 150 mg 24 hr tablet, 150 mg PO DAILY 12/14/23 12/13/23 History extended release levothyroxine 125 mcg tablet 125 mcg PO DAILY 12/14/23 12/14/23 History Allergy/AdvReac Type Severity Reaction Status Date / Time No Known Allergies Allergy Verified 12/14/23 11:12 Family History Mother Diabetes Sister Diabetes Surgical History S/P endometrial ablation H/O hysterectomy for benign disease H/O thyroidectomy Plantar fasciitis, bilateral Social History Smoking Status: Never smoker second hand exposure: No alcohol intake: never substance use type: does not use ROS ROS ED Constitutional Constitutional ED: Reports fever(s); Denies chills Eyes Eyes: Denies blurry vision or change in vision ENT ENT ED: Denies rhinorrhea or sore throat Cardiovascular Cardiovascular: Denies chest pain or palpitations Respiratory/Chest Respiratory/Chest: Denies cough or dyspnea Gastrointestinal Gastrointestinal: Reports abdominal pain, diarrhea, nausea and vomiting; Denies melena Genitourinary Genitourinary ED: Denies dysuria or hematuria Musculoskeletal Musculoskeletal: Denies back pain or neck pain Integumentary Denies abscess or rash Neurologic Neurologic: Denies headache(s) or weakness Allergic/Immunologic Allergic/Immunologic ED: Denies mouth swelling or urticaria EXAM Physical Exam Const Vital Signs: 12/14/23 11:12 12/14/23 13:11 12/14/23 13:56 Temperature 97.8 F Temperature Source Temporal Pulse Rate 108 H 94 Pulse Rate [Lying] 90 Pulse Rate [Sitting (for 1 minute prior to obtaining)] 100 Pulse Rate [Standing (for 1 minute prior to obtaining)] 112 H Respiratory Rate 16 18 Blood Pressure 166/90 H 115/77 Blood Pressure [Lying] 110/72 Blood Pressure [Sitting (for 1 minute prior to obtaining)] 104/66 Blood Pressure [Standing (for 1 minute prior to obtaining)] 114/100 H Blood Pressure Mean 115 89 Blood Pressure Mean [Lying] 84 Blood Pressure Mean [Sitting (for 1 minute prior to obtaining)] 78 Blood Pressure Mean [Standing (for 1 minute prior to obtaining)] 104 Pulse Ox 98 99 Oxygen Delivery Method Room Air Room Air Positive well nourished and well developed General Appearance ED: well developed and NAD HEENT Reports moist mucous membranes Neck supple and no JVD Resp normal respiratory effort and clear to auscultation bilaterally Cardio regular rhythm Rate: tachycardic GI non-distended Palpation: soft and tender epigastric, LLQ, RLQ, LUQ, RUQ, periumbilical and suprapubic; Negative for guarding or rebound tenderness present Extremity normal to inspection General Extremety ED: Negative for edema or tenderness General Extremity: Negative for edema Neuro oriented x3, CN's II-XII intact bilaterally and no sensory deficits noted Sensorium / Orientation: alert Motor Exam: strength 5/5 throughout Psych mental status grossly normal MDM MDM MDM Narrative Medical decision making narrative: Differential diagnosis includes gastroenteritis, pancreatitis, colitis, diverticulitis, urinary tract infection, and viral illness. CBC will be obtained to assess for leukocytosis and anemia. Comprehensive metabolic profile will be obtained to assess for hepatic function, renal function, and electrolyte abnormality. Lipase will be obtained to assess for pancreatitis. Urinalysis will be obtained to assess for urinary tract infection and hematuria. Orthostatic vital signs will be obtained to assess for dehydration. Lab Data Attestation: I reviewed the patient's lab results. Lab results narrative: CBC was reviewed. There is a mild leukocytosis of 11.5. Hemoglobin was slightly elevated at 17.0. Hematocrit was also slightly elevated at 51.7. Platelets were normal. Comprehensive metabolic profile was reviewed. Sodium was slightly low at 133 and potassium was slightly low at 3.2. BUN was elevated at 45 and creatinine was 3.23. This was increased from previous result. Lipase was reviewed and was normal at 63. Labs: Laboratory Results - last 24 hr 12/14/23 11:50 WBC 11.5 H RBC 5.63 H Hgb 17.0 H Hct 51.7 H MCV 91.8 MCH 30.2 MCHC 32.9 RDW Std Deviation 44.7 H RDW Coeff of Rosetta 13.2 Plt Count 313 MPV 9.8 Immature Gran % (Auto) 0.300 Neut % (Auto) 88.4 H Lymph % (Auto) 4.2 L [place] % (Auto) 6.7 Eos % (Auto) 0.0 Baso % (Auto) 0.4 Absolute Neuts (auto) 10.1 H Absolute Lymphs (auto) 0.48 L Nucleated RBC % 0 Differential Comment COMMENT Sodium 133 L Potassium 3.2 L Chloride 98 Carbon Dioxide 28.0 Anion Gap 7 BUN 45 H Creatinine 3.23 H Estim Creat Clear Calc 19.59 Est GFR (MDRD) Af Amer 19 L Est GFR (MDRD) Non-Af 16 L BUN/Creatinine Ratio 13.9 Glucose 199 H Calcium 9.9 Total Bilirubin 0.60 AST 22 ALT 36 Alkaline Phosphatase 91 Total Protein 9.1 H Albumin 4.1 Globulin 5.0 H Albumin/Globulin Ratio 0.8 L Lipase 63 Management Discussion w/another healthcare provider: Hospitalist Treatment and Re-Evaluation :: Patient was given Zofran. Patient was given IV fluids. Patient was advised of her findings. Patient was given a dose of oral potassium here. Case was discussed with the hospitalist for possible admission for observation for rehydration. Patient and spouse understood and were agreeable with the plan. All questions were answered. Discharge Plan Triage Chief Complaint: Nausea/Vomiting/Diarrhea ED Provider: Ronnie Garcia Dx/Rx/DC Orders Clinical Impression: Acute kidney injury, Nausea, vomiting, and diarrhea, Hypokalemia Prescriptions: No Action vitamin B complex 1 EACH capsule 1 ea PO DAILY cholecalciferol (vitamin D3) [Vitamin D3] 1,000 UNIT capsule 1,000 unit PO DAILY Multipak 1 pkg PO DAILY L.acidoph, paracasei,B. lactis 1 EACH capsule 1 ea PO DAILY levothyroxine 125 mcg tablet 125 mcg PO DAILY bupropion HCl 150 mg tablet extended release 24 hr 150 mg PO DAILY Primary Care Provider: Claire Lu NP Referrals: Claire Lu NP, [employer] [Primary Care Provider] - Print Language: Greenlandic Disposition Disposition: Acute Care [facility]
[2023-12-14 11:55] LABS: Absolute Lymphocyte Count 0.48 X10^3/uL (0.83-4.51); Absolute Neutrophil Count 10.1 X10^3/uL (2.0-7.7); Basophil# 0.05 X10^3/uL; Basophil% 0.4 % (0-1); Hematocrit 51.7 % (37-47); Lymphocyte # 0.48 X10^3/ul (0.83-4.51); Lymphocyte % 4.2 % (19-41); Mean Corp Hgb Conc 32.9 g/dL (32-36); Mean Corpuscular Hgb 30.2 pg (27.0-32.0); Mean Corpuscular Volume 91.8 fL (81-99); Mean Platelet Vol. 9.8 fl (6.2-12.0); Monocyte# 0.77 X10^3/uL; Monocyte% 6.7 % (0-10); NRBC Flagged by Analyzer 0 % (0-5); Neutrophil # 10.14 X10^3/uL (2.7-7.7); Neutrophil % 88.4 % (47-70); POSITIVE DIFFERENTIAL YES; POSITIVE MORPHOLOGY YES; Platelet Count 313 K/mm3 (150-450); RBC Distribution Width CV 13.2 % (11.6-14.6); RBC Distribution Width SD 44.7 fl (35.1-43.9); Red Blood Count 5.63 M/mm3 (4.2-5.4); White Blood Count 11.5 K/mm3 (4.4-11.0)
[2023-12-14 11:56] LABS: Differential Indicated SCAN CRITERIA MET
[2023-12-14] MEDS: Ondansetron 4 MG/2 ML Vial IV ×2 (11:57→17:10)
[2023-12-14 12:09] LABS: ALB/GLOB Ratio 0.8 RATIO (0.9-2.4); AST(SGOT) 22 U/L (15-37); Alanine Aminotransfer ALT/SGPT 36 U/L (13-56); Albumin, Serum 4.1 g/dL (3.2-5.0); Alkaline Phosphatase 91 U/L (45-117); Anion Gap 7 (5-15); BUN 45 mg/dL (7-18); BUN/Creat Ratio 13.9 RATIO (10-20); Calcium,Total 9.9 mg/dL (8.5-10.1); Chloride 98 mmol/L (98-107); Creatinine, Serum 3.23 mg/dL (0.55-1.02); EST Glomerular Filtration Rate 16 mL/min (>60); Est Glom Filt Rate - Afr Amer 19 mL/min (>60); Estimated Creatinine Clearance 19.59 ml/min; Glucose 199 mg/dL (74-106); Lipase 63 U/L (13-75); Potassium 3.2 mmol/L (3.5-5.1); Protein, Total 9.1 g/dL (6.4-8.2); Sodium Level 133 mmol/L (136-145)
--- OUTSIDE RECORDS SUMMARY | 2023-12-14 12:44 | XMS RPT_ITS | CCD ---
Author Organization [facility] Care Team Providers Care Senior Dentist Name Role Phone Rasheeda Thomas LPN Unavailable Unavailable Rasheeda Thomas LPN Unavailable Unavailable Rasheeda Thomas LPN Unavailable Unavailable William HENSON, Rasheeda Marquez Unavailable Unavailable Laura Leal NP Unavailable Laura Leal NP Unavailable [phone] Medications Completed/Discontinued Medications Medication Drug Class(es) Dates Sig (Normalized) Sig (Original) Drug Treatment Unknown - unknown (1 source) No information available. levothyroxine sodium 0.112 mg oral tablet (6 sources) l-Thyroxine Start: 10-03-2016 take 1 tablet by mouth once daily LEVOTHYROXINE SODIUM 112 MCG TABS One tablet by mouth daily LEVOTHYROXINE SODIUM [id number] Laura Leal NP Problems Problem Classification Problem Date Documented Da te Episodic/Chronic Thyroid disorders (7 sources) Disorder of thyroid gland; Translations: [Disorder of thyroid, unspecified] Onset: 09-21-2016 09-21-2016 Episodic Results Test Name Value Interpretation Reference Range Facility [facility] 06-11-2019 CNOV Office Visit (AKURFL) ---- ADDIEMARÍA ([id number]) 1970 F Date Time Provider Department 06/11/19 2:00 PM OSMEL HANSON During your visit today, we recorded the following information about you: Osmel Hanson DO, MBA 06/11/2019 2:25 PM Signed ?? [facility] LOCATION: VIRTUAL VISIT NEW CONSULT VISIT PATIENT INFO: María Huerta 48 year old PCP: Kody Franco MD The patient is seen today through a virtual visit. This is done and lieu of an in person appointment due to COVID-19. Consent for this telehealth visit obtained from the patient prior to initiation of the encounter. The patient acknowledges the limitations of telehealth and agrees to proceed. The patient understands that this visit will be documented in the medical record as any other patient encounter. Consultation requested by and my final recommendations will be communicated back to the requesting physician by way of shared medical record or letter via US mail. Chief Complaint: Left hydronephrosis HPI This is a virtual visit for a new consultation for left hydroureteronephros is. She already had an appointment with her senior strategy analyst at [facility]. She has an extensive history of endometriosis. She has some moderate left-sided flank pain that is manageable. By her report her creatinine at [facility] is almost normal. 1-Duration: 2019 2-Location: kidney 3-Severity: N/A 4-Quality: Not applicable 5-Context: N/A 6-Timing: N/A 7-Modifying factors: No treatment prior to referral 8-Associated signs AND symptoms: no additional symptoms No question data found. PATHOLOGY: N/A LAB: No results found for: WBC, RBC, HB, HCT, MCV, MCH, MCHC, RDWCV, PLT, MPV, NEUTP, LYMPHP, MONOP, EODINP, BASOP, ABSNEUT, ABSLYM, ABSMONO, ABSEOSIN, ABSBASO No results found for: CREAT No results found for: PSA, PSAPER URINE POC No results found for this basename: uglucpoc,ubilipoc,u ketonpoc,usgpoc,uhb poc,uphpoc,upropoc, uuropoc,unitpoc,uwb child psychometrist- c,ucolpoc,uclarpoc IMAGING: Imaging reports from [facility] reviewed. MRI pending ALLERGIES: ALLERGIES Allergen Reactions - Chlorhexidine Gluco* Rash MEDICATIONS: iv contrast (will be provided with radiology test) MRI Female Pelvis Inject, intravenously, once for 1 dose. No IV access, insert saline lock prior to the beginning of sedation, infusion, injection of imaging exam. Discontinue saline lock post exam. If Pt has a central line or IVAD, may access for administration according to line specific nursing protocol. Once exam is complete flush line and de-access according to line specific nursing protocol in the MR contrast administration guidelines link. Surgical Lubricant Jelly gel For MRI FEMALE PELVIS WO/W IVCON order Up to 15cc intra-vaginal Surgilube (to patient tolerance). levothyroxine (SYNTHROID) 112 mcg tablet Take one daily with additional 1/2 pill on Monday Does the patient take any herbal medications?: No Medication list reviewed and reconciled with patient: Yes HISTORIES PAST MEDICAL HISTORY Diagnosis Date - Hyperlipidemia - S/P thyroidectomy 12/08/11 Dg [place] - Unspecified hypothyroidism Hypothyroidism PAST SURGICAL HISTORY Procedure Laterality Date - PAST SURGICAL HISTORY OF 1995 Plantar faciitis Both feet FAMILY HISTORY Problem Relation Age of Onset - Diabetes Mother - Thyroid Mother - Thyroid Sister - Thyroid Brother - Diabetes Sister Negative family history: No SOCIAL HISTORY Social History Tobacco Use - Smoking status: Never Smoker - Smokeless tobacco: Never Used Substance Use Topics - Alcohol use: Yes Comment: Rarely - Drug use: No Smoking Status Reviewed: Yes REVIEW OF SYSTEMS: GENERAL: No fever, chills, weight loss, or fatigue. HEAD AND NECK: No blurred vision or Sjogren's syndrome CARDIOVASCULAR: NO CHEST PAIN, PALPITATIONS, ANKLE EDEMA RESPIRATORY: No chronic cough, wheezing, dyspnea, hemoptysis. MUSCULOSKELETAL: NO CHRONIC BACK PAIN, ARTHRITIS, CHRONIC NECK PAIN SKIN: NO VARICOSE VEINS, RASH, ABNORMAL ITCHING BLOOD/LYMPHATIC: No easy bleeding, easy bruising, transfusion Hx NEUROLOGICAL: NO HEADACHES, NUMBNESS, SEIZURES, STROKE PSYCHIATRIC: No depression or inordinate anxiety The remainder of the ROS was negative. PHYSICAL EXAMINATION NONE IMPRESSION/PLAN: Left hydroureteronephros is. Left ovarian cyst. Endometriosis with likely involvement of the bladder. At this time she is coordinating her care with USED CAR MAKE READY MECHANIC at [facility]. She has already been typed and with my colleague Dr. Reggie Dougherty. At this time she is fairly asymptomatic and her creatinine is normal by report. She does not wish to have intervention at this time. She will likely proceed to surgery with Dr. Ugalde at [facility]. All questions were answered. Osmel Hanson DO GIOVANNA Letter to: Kody Franco MD Referring Provider: MARIE PAUL [[id number]] Allergies As of Date: 06/11/2019 Noted Allergy Reaction CHLORHEXIDINE GLUCONATE 12/12/2011 2 - Rash Date Reviewed: 06/11/2019 Reviewed by: Osmel Hanson - Fully Assessed Primary Visit Diagnosis:Hydroneph rosis of left kidney [N13.30] Prescriptions as of 06/11/2019 Sig: IV CONTRAST (RADIOLOGY PROCED* MRI Female Pelvis Inject, int* SURGICAL LUBRICANT JELLY TOPI* For MRI FEMALE PELVIS WO/W IV* LEVOTHYROXINE 112 MCG TABLET Take one daily with additiona* Problem List As Of Date 06/11/2019 Noted Resolved Unspecified hypothyroidism [E03.9] 04/19/2007 01/23/2012 ADJUSTMENT DISORDER WITH DEPRESSED MOOD [F43.21]04/19/2007 More... Routine Gynecological Examination [Z01.419] 09/17/2009 Class: Chronic More... Other and unspecified disc disorder of lumbar r*12/15/2009 Post-surgical hypothyroidism [E89.0] 01/23/2012 Disposition: Return if symptoms worsen or fail to improve. Follow-up and Disposition History Recorded Letter Text Encounter Status:Closed by OSMEL HANSON on 06/11/19 [facility] PROGRESSon 06-11-2019 PROGRESS HNO ID: [id number] Author: Osmel Hanson Service: ? Author Type: Physician Type: Progress Notes Filed: 06/11/2019 2:25 PM Note Text: ?? [facility] LOCATION: VIRTUAL VISIT NEW CONSULT VISIT PATIENT INFO: María Marquez Addie 48 year old PCP: Kody Franco MD The patient is seen today through a virtual visit. This is done and lieu of an in person appointment due to COVID-19. Consent for this telehealth visit obtained from the patient prior to initiation of the encounter. The patient acknowledges the limitations of telehealth and agrees to proceed. The patient understands that this visit will be documented in the medical record as any other patient encounter. Consultation requested by and my final recommendations will be communicated back to the requesting physician by way of shared medical record or letter via US mail. Chief Complaint: Left hydronephrosis HPI This is a virtual visit for a new consultation for left hydroureteronephros is. She already had an appointment with her senior strategy analyst at [facility]. She has an extensive history of endometriosis. She has some moderate left-sided flank pain that is manageable. By her report her creatinine at [facility] is almost normal. 1-Duration: 2019 2-Location: kidney 3-Severity: N/A 4-Quality: Not applicable 5-Context: N/A 6-Timing: N/A 7-Modifying factors: No treatment prior to referral 8-Associated signs AND symptoms: no additional symptoms No question data found. PATHOLOGY: N/A LAB: No results found for: WBC, RBC, HB, HCT, MCV, MCH, MCHC, RDWCV, PLT, MPV, NEUTP, LYMPHP, MONOP, EODINP, BASOP, ABSNEUT, ABSLYM, ABSMONO, ABSEOSIN, ABSBASO No results found for: CREAT No results found for: PSA, PSAPER URINE POC No results found for this basename: uglucpoc,ubilipoc,u ketonpoc,usgpoc,uhb poc,uphpoc,upropoc, uuropoc,unitpoc,uw bcpoc,ucolpoc,uclar poc IMAGING: Imaging reports from [facility] reviewed. MRI pending ALLERGIES: ALLERGIES Allergen Reactions - Chlorhexidine Gluco* Rash MEDICATIONS: iv contrast (will be provided with radiology test) MRI Female Pelvis Inject, intravenously, once for 1 dose. No IV access, insert saline lock prior to the beginning of sedation, infusion, injection of imaging exam. Discontinue saline lock post exam. If Pt has a central line or IVAD, may access for administration according to line specific nursing protocol. Once exam is complete flush line and de-access according to line specific nursing protocol in the MR contrast administration guidelines link. Surgical Lubricant Jelly gel For MRI FEMALE PELVIS WO/W IVCON order Up to 15cc intra-vaginal Surgilube (to patient tolerance). levothyroxine (SYNTHROID) 112 mcg tablet Take one daily with additional 1/2 pill on Monday Does the patient take any herbal medications?: No Medication list reviewed and reconciled with patient: Yes HISTORIES PAST MEDICAL HISTORY Diagnosis Date - Hyperlipidemia - S/P thyroidectomy 12/08/11 Dg [place] - Unspecified hypothyroidism Hypothyroidism PAST SURGICAL HISTORY Procedure Laterality Date - PAST SURGICAL HISTORY OF 1995 Plantar faciitis Both feet FAMILY HISTORY Problem Relation Age of Onset - Diabetes Mother - Thyroid Mother - Thyroid Sister - Thyroid Brother - Diabetes Sister Negative family history: No SOCIAL HISTORY Social History Tobacco Use - Smoking status: Never Smoker - Smokeless tobacco: Never Used Substance Use Topics - Alcohol use: Yes Comment: Rarely - Drug use: No Smoking Status Reviewed: Yes REVIEW OF SYSTEMS: GENERAL: No fever, chills, weight loss, or fatigue. HEAD AND NECK: No blurred vision or Sjogren's syndrome CARDIOVASCULAR: NO CHEST PAIN, PALPITATIONS, ANKLE EDEMA RESPIRATORY: No chronic cough, wheezing, dyspnea, hemoptysis. MUSCULOSKELETAL: NO CHRONIC BACK PAIN, ARTHRITIS, CHRONIC NECK PAIN SKIN: NO VARICOSE VEINS, RASH, ABNORMAL ITCHING BLOOD/LYMPHATIC: No easy bleeding, easy bruising, transfusion Hx NEUROLOGICAL: NO HEADACHES, NUMBNESS, SEIZURES, STROKE PSYCHIATRIC: No depression or inordinate anxiety The remainder of the ROS was negative. PHYSICAL EXAMINATION NONE IMPRESSION/PLAN: Left hydroureteronephros is. Left ovarian cyst. Endometriosis with likely involvement of the bladder. At this time she is coordinating her care with USED CAR MAKE READY MECHANIC at [facility]. She has already been typed and with my colleague Dr. Reggie Dougherty. At this time she is fairly asymptomatic and her creatinine is normal by report. She does not wish to have intervention at this time. She will likely proceed to surgery with Dr. Ugalde at [facility]. All questions were answered. 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 11-16-2016 Tobacco smoking status NHIS Never Invalid Interpretation Code [facility] Work Phone: Tobacco use HS Never smoker Invalid Interpretation Code [facility] Work Phone: Lab Report: Free T3on 2016 Triiodothyronine (T3) free 2.3 pg/mL Invalid Interpretation Code 2.18-3.98 [facility] Work Phone: Lab Report: T4 Free Directon 10-24-2016 Thyroxine (T4) free 1.13 ng/dL Invalid Interpretation Code 0.76-1.46 [facility] Work Phone: Lab Report: Thyroid Stim Hor vee (TSH)on 10-24-2016 Thyroid stimulating hormone (TSH) 1.06 u[iU]/mL Invalid Interpretation Code 0.358-3.74 [facility] Work Phone: Vital Signs Date Time Vital Sign Value Performing Clinician Facility 11-17-2016 08:13-0400 BMI (Body Mass Index) 25.62 kg/m2 [facility] Work Phone: 11-17-2016 08:13-0400 Body Temperature 98.5 [degF] Rasheeda Thomas LPN [facility] Work Phone: 11-17-2016 08:13-0400 BP Diastolic 73 mm[Hg] Rasheeda Thomas LPN [facility] Work Phone: 11-17-2016 08:13-0400 BP Systolic 108 mm[Hg] Rasheeda Thomas LPN [facility] Work Phone: 11-17-2016 08:13-0400 Height 170.18 cm [facility] Work Phone: 11-17-2016 08:13-0400 Pulse (Heart Rate) 81 /min [facility] Work Phone: 11-17-2016 08:13-0400 Respiratory Rate 18 /min [facility] Work Phone: 11-17-2016 08:13-0400 Weight 74.21 kg Rasheeda Thomas LPN [facility] Work Phone: Procedures Date Procedure Procedure Detail Performing Clinician Start: 09-21-2016 End: 10-24-2016 Thyroid stimulating hormone (TSH) Laura Leal [employer] Work Phone: Start: 09-21-2016 End: 10-24-2016 Thyroxine (T4) free Laura Leal [employer] Work Phone: Start: 09-21-2016 End: 10-24-2016 Triiodothyronine (T3) free Laura long [employer] Work Phone: Plan of Treatment Date Care Activity Detail Author Start: 11-17-2016 End: 11-17-2016 Appointment Appointment [facility] Work Phone: Start: 10-20-2016 End: 10-20-2016 Appointment Appointment [facility] Work Phone: Start: 09-21-2016 End: 10-24-2016 Thyroid stimulating hormone (TSH) *TSH [facility] Work Phone: Start: 09-21-2016 End: 10-24-2016 Thyroxine (T4) free *T4 free [facility] Work Phone: Start: 09-21-2016 End: 10-24-2016 Triiodothyronine (T3) free *T3-Free [facility] Work Phone: Summary Purpose Family History No Family History Records Found Advance Directives No Advanced Directives Records Found Additional Source Comments INFORMATION SOURCE (unrecogn ized section and content) DATE CREATED AUTHOR 06/11/2019 [facility] FOR RECORDS PERTAINING TO PATIENTS WHO ARE OR HAVE BEEN ENROLLED IN A CHEMICAL DEPENDENCY/SUBSTANCEABUSE PROGRAM, SOME INFORMATION MAY BE OMITTED. This clinical summary was aggregated from multiple sources. Caution should be exercised in using it in the provision of clinical care. This summary normalizes information from multiple sources, and as a consequence, information in this document may materially change the coding, format and clinical context of patient data. In addition, data may be omitted in some cases. CLINICAL DECISIONS SHOULD BE BASED ON THE PRIMARY CLINICAL RECORDS. [email or web address] provides no warranty or guarantee of the accuracy or completeness of information in this document.
[2023-12-14] MEDS: 0.9% Normal Saline (1000mL) 1,000 ML 1000 ML IV (12:45)
[2023-12-14 13:11] VITALS: BP 115/77; PULSE 94; RESP 18; O2SAT 99
[2023-12-14 13:56] VITALS: BP 104/66; BP 110/72; BP 114/100; PULSE 100; PULSE 112; PULSE 90
--- NOTE | 2023-12-14 14:37 | PCM.HP.STD ---
HPI - General General Date of Admission: 12/14/23 Date of Service: 12/14/23 Chief Complaint: Nausea/vomiting/diarrhea and abdominal pain HPI Narrative REJI REAL, is a 53 F who presented to [facility] ED on 12/14/2023 with 1 day history of nausea/vomiting/diarrhea and mild abdominal pain. Patient is in fairly good health at baseline, lives at home with her . was at bedside with her today. Patient attended a local [facility] on Monday night and about one thousand people were there. Overnight she started to feel nauseous and then starting yesterday morning she had roughly 10-15 episodes of vomiting and 20-25 episodes of diarrhea. She has not been able to keep any liquids or food down. She has had a diffuse crampy abdominal pain along with this. Denies any hematemesis or coffee-ground emesis. Diarrhea was watery and yellow, denies any melena or hematochezia. Reports having fevers and chills at home. She denies any recent illnesses and has not had any recent antibiotics. Was initially concerned she could have food poisoning from what she had at the [facility] but felt like her symptoms had now gone on too long for this. In the ED she was initially tachycardic to the 100s with mildly elevated blood pressure. She was dry appearing on exam. Her orthostatic vitals were positive. Lab workup was notable for sodium 133, potassium 3.2, creatinine 3.23 (baseline 1.1), and CBC appeared hemoconcentrated compared to prior labs. Given her inability to tolerate p.o. intake and AGUSTO, hospitalist was contacted for admission. I saw the patient at bedside in the ED, was present. Patient was mildly fatigued appearing and mildly uncomfortable appearing due to mid to upper abdominal pain. She stated she has had abdominal cramping over the past day but the abdominal pain currently is somewhat new for her. She was given a dose of IV morphine in the ED with some initial relief of pain but the pain is now returning. She was able to keep down some Sprite earlier. Has not had any bowel movements in the past hour or so. She was covered with multiple blankets and did report feeling some chills when I saw her. Given the abdominal pain, CT abdomen pelvis without contrast was obtained. Scan showed surgically absent gallbladder but otherwise no acute abnormalities. Patient otherwise denied any chest pain or shortness of breath. No other acute concerns at this time. [facility] Medical History (Updated 12/14/23 @ 14:[address] Ronnie Garcia DO) Vision problem Hypothyroidism High cholesterol Chronic headaches Carpal tunnel syndrome Back problem Anxiety and depression Home Medications ?Medication ?Instructions ?Recorded ?Last Taken ?Type Multipak 1 pkg PO DAILY supplement 01/18/18 12/13/23 History cholecalciferol (vitamin D3) 25 1,000 unit PO DAILY vitamin 01/18/18 12/13/23 History mcg (1,000 unit) capsule (Vitamin D3) vitamin B complex 1 ea PO DAILY supplement 01/18/18 12/13/23 History L.acidoph, paracasei,B. lactis 10 1 ea PO DAILY probiotic 03/12/18 12/13/23 History billion cell capsule bupropion HCl 150 mg 24 hr tablet, 150 mg PO DAILY 12/14/23 12/13/23 History extended release levothyroxine 125 mcg tablet 125 mcg PO DAILY 12/14/23 12/14/23 History Allergy/AdvReac Type Severity Reaction Status Date / Time No Known Allergies Allergy Verified 12/14/23 11:12 Family History Mother Diabetes Sister Diabetes Surgical History S/P endometrial ablation H/O hysterectomy for benign disease H/O thyroidectomy Plantar fasciitis, bilateral Social History Smoking Status: Never smoker second hand exposure: No alcohol intake: never substance use type: does not use ROS Constitutional Constitutional: Reports chills, fatigue and fever(s); Denies weakness Eyes Eyes: Denies change in vision Cardiovascular Cardiovascular: Denies chest pain Respiratory/Chest Respiratory/Chest: Denies shortness of breath at rest Gastrointestinal Gastrointestinal: Reports abdominal pain, diarrhea, nausea and vomiting; Denies coffee ground emesis, constipation, dyspepsia, hematemesis, hematochezia or melena Genitourinary Genitourinary: Denies dysuria Musculoskeletal Musculoskeletal: Denies arthralgias, back pain or myalgias Neurologic Neurologic: Denies dizziness, focal weakness or headache(s) Vital Signs Vital Signs Vital Signs: 12/14/23 11:12 12/14/23 13:11 12/14/23 13:56 Temperature 97.8 F Temperature Source Temporal Pulse Rate 108 H 94 Pulse Rate [Lying] 90 Pulse Rate [Sitting (for 1 minute prior to obtaining)] 100 Pulse Rate [Standing (for 1 minute prior to obtaining)] 112 H Respiratory Rate 16 18 Blood Pressure 166/90 H 115/77 Blood Pressure [Lying] 110/72 Blood Pressure [Sitting (for 1 minute prior to obtaining)] 104/66 Blood Pressure [Standing (for 1 minute prior to obtaining)] 114/100 H Blood Pressure Mean 115 89 Blood Pressure Mean [Lying] 84 Blood Pressure Mean [Sitting (for 1 minute prior to obtaining)] 78 Blood Pressure Mean [Standing (for 1 minute prior to obtaining)] 104 Pulse Ox 98 99 Oxygen Delivery Method Room Air Room Air Weight Weight: 65.771 kg Body Mass Index (BMI) 22.7 Physical Exam Const alert, oriented x3 and average body habitus Constitutional Narrative: Middle-age female, mildly fatigued appearing, mildly uncomfortable appearing due to ongoing abdominal pain, otherwise answering questions with short appropriate responses. General Appearance: cooperative HEENT normocephalic, head/scalp atraumatic, hearing grossly normal bilaterally and nasal mucous membranes and turbinates normal HEENT Narrative: Dry mucous membranes. Eyes PERRL, EOMs intact bilaterally and conjunctivae normal Neck full ROM Chest inspection of chest normal Resp normal respiratory effort, normal air movement, no use of accessory muscles and clear to auscultation bilaterally Cardio regular rate, regular rhythm, no murmurs and peripheral pulses 2+ throughout GI GI Narrative: Abdomen mildly tender to palpation in upper abdomen diffusely. Otherwise soft and nondistended with normal bowel sounds. Back/Spine normal ROM Extremity normal to inspection, full ROM and no pedal edema Skin no rashes or lesions noted Neuro moves all extremities and no focal motor deficits Speech: speech normal Psych mental status grossly normal Results Lab / Micro Data 12/14/23 11:50 12/14/23 11:50 Labs: Laboratory Results - last 24 hr 12/14/23 11:50: WBC 11.5 H, RBC 5.63 H, Hgb 17.0 H, Hct 51.7 H, MCV 91.8, MCH 30.2, MCHC 32.9, RDW Std Deviation 44.7 H, RDW Coeff of Rosetta 13.2, Plt Count 313, MPV 9.8, Immature Gran % (Auto) 0.300, Neut % (Auto) 88.4 H, Lymph % (Auto) 4.2 L, Adams % (Auto) 6.7, Eos % (Auto) 0.0, Baso % (Auto) 0.4, Absolute Neuts (auto) 10.1 H, Absolute Lymphs (auto) 0.48 L, Nucleated RBC % 0, Differential Comment COMMENT, Sodium 133 L, Potassium 3.2 L, Chloride 98, Carbon Dioxide 28.0, Anion Gap 7, BUN 45 H, Creatinine 3.23 H, Estim Creat Clear Calc 19.59, Est GFR (MDRD) Af Amer 19 L, Est GFR (MDRD) Non-Af 16 L, BUN/Creatinine Ratio 13.9, Glucose 199 H, Calcium 9.9, Total Bilirubin 0.60, AST 22, ALT 36, Alkaline Phosphatase 91, Total Protein 9.1 H, Albumin 4.1, Globulin 5.0 H, Albumin/Globulin Ratio 0.8 L, Lipase 63 Micro: Microbiology 12/14/23 11:45 Mucosa - Nose SARS-CoV-2, Influenza & RSV (PCR) - Final Assessment & Plan Assessment/Plan (1) Nausea, vomiting, and diarrhea: (2) Acute kidney injury: (3) Hypokalemia: PLAN: Plan Patient is a 53-year-old female who presented [facility] ED on 12/14/2023 with 1 day history of nausea/vomiting/diarrhea and abdominal discomfort. 1. Suspected gastroenteritis ? Admit under inpatient status to [facility]. Symptoms seem most consistent with gastroenteritis. Hemodynamically stable, afebrile here and normal WBC count with no recent antibiotic use; low concern for C. difficile but will send enteric stool panel and C. difficile to rule this out. Treating with supplemental IV fluids as noted below. Pain control with Tylenol, oxycodone and low-dose IV Dilaudid as needed for now. If stool studies are negative, can consider starting Lomotil or Bentyl for symptom management. Zofran as needed ordered for nausea control. 2. AGUSTO on CKD stage II ? Creatinine 3.23 on admit, baseline around 1.1. Suspect prerenal due to GI losses as noted above. Given 1 L normal saline in the ED and will give another 1 L LR on arrival to the floor. Follow-up a.m. BMP and monitor urine output. 3. Mild hyponatremia ?Sodium 133 on admit. Presumed secondary to GI losses as above. Follow-up a.m. BMP. 4. Hypokalemia ? Potassium 3.2 on admit. Mag and Phos ordered. Presumed secondary to GI losses. Follow-up a.m. BMP. Replete potassium as needed. Chronic medical conditions: ? Hypothyroidism: Continue home Synthroid. ? Anxiety/depression: Continue home bupropion. ? History of hysterectomy DVT prophylaxis: Heparin subcu CODE STATUS: Full code, verified Expected disposition: Home, 2 to 3 days Total clinical time spent by myself addressing the patient's medical issues, reviewing all the data, and collaborating with patient's care team: 55 minutes. Charges/Coding Visit Charges Inpatient E&M: 94437 Init Hosp L2
[2023-12-14] MEDS: Morphine 4 MG/ML Syringe IV (14:59)
[2023-12-14 15:27] LABS: Magnesium 2.5 mg/dL (1.6-2.6); Phosphorus 6.6 mg/dL (2.5-4.9)
[2023-12-14 15:29] VITALS: BP 120/64; PULSE 74; RESP 18; TEMP 36.1; O2SAT 99
--- NOTE | 2023-12-14 15:42 | CT_ITS ---
INDICATION: abd pain w/ n/v/d EXAMINATION: CT Abdomen And Pelvis W/O Contrast Injection TECHNIQUE: Helically acquired images were obtained of the abdomen and pelvis without the use of IV contrast. A radiation dose optimization technique was used for this scan. Oral contrast: None. COMPARISON: None FINDINGS: Evaluation of the solid organs and vascular structures is limited without intravenous contrast. Visualized lung bases: Unremarkable Liver: Unremarkable Gallbladder: Surgically absent. Spleen: Unremarkable Pancreas: Unremarkable Adrenal Glands: Unremarkable Kidneys: Unremarkable Vasculature: Mild scattered aortoiliac atherosclerotic calcifications. GI Tract: Unremarkable Lymphadenopathy: None Peritoneum: No ascites. Bladder: Unremarkable Reproductive organs: Unremarkable Bones/Soft tissues: No suspicious osseous or soft tissue lesions CT/Abdomen/Pelvis without Cont IMPRESSION: No acute abnormalities in the abdomen or pelvis. Electronically Signed: Solitario Whiting MD at 17:12 EDT ,
[2023-12-14 16:16] VITALS: PULSE 88; RESP 16; O2SAT 96; BMI 22.7
[2023-12-14] MEDS: Lactated Ringers 1,000 ML 200 ML IV (17:08)
[2023-12-14] MEDS: HYDROmorphone 0.5 MG/0.5 ML SYRINGE IV ×2 (17:09→22:21)
[2023-12-14] MEDS: 0.9% Saline Lock 10 ML Syringe IV (17:10)
--- OUTSIDE RECORDS SUMMARY | 2023-12-14 18:00 | XMS RPT_ITS | CCD ---
Author Organization [facility] Care Team Providers Care Car Rental Agent Name Role Phone Rasheeda Thomas LPN Unavailable Unavailable Rasheeda Thomas LPN Unavailable Unavailable Rasheeda Thomas LPN Unavailable Unavailable William HENSON, Rasheeda Marquez Unavailable Unavailable Laura Leal NP Unavailable [phone] Laura Leal NP Unavailable [phone] Medications Completed/Discontinued Medications Medication Drug Class(es) Dates Sig (Normalized) Sig (Original) Drug Treatment Unknown - unknown (1 source) No information available. levothyroxine sodium 0.112 mg oral tablet (6 sources) l-Thyroxine Start: 10-03-2016 take 1 tablet by mouth once daily LEVOTHYROXINE SODIUM 112 MCG TABS One tablet by mouth daily LEVOTHYROXINE SODIUM [id number] Laura Leal NP Problems Problem Classification Problem Date Documented Da te Episodic/Chronic Thyroid disorders (7 sources) Disorder of thyroid gland; Translations: [Disorder of thyroid, unspecified] Onset: 09-21-2016 09-21-2016 Episodic Results Test Name Value Interpretation Reference Range Facility [facility] 06-11-2019 CNOV Office Visit (AKURFL) ---- ADDIEMARÍA ([id number]) 1970 F Date Time Provider Department 06/11/19 2:00 PM OSMEL HANSON During your visit today, we recorded the following information about you: Osmel Hanson DO, MBA 06/11/2019 2:25 PM Signed ?? Formerly [facility] LOCATION: VIRTUAL VISIT NEW CONSULT VISIT [...] She already had an appointment with her tailer in at [facility]. She has an extensive history of endometriosis. She has some moderate left-sided flank pain that is manageable. By her report her creatinine at [facility] is almost normal. 1-Duration: 2019 2-Location: kidney [...] for this basename: uglucpoc,ubilipoc,u ketonpoc,usgpoc,uhb poc,uphpoc,upropoc, uuropoc,unitpoc,uwb electroneurodiagnostic technologist- c,ucolpoc,uclarpoc IMAGING: Imaging reports from [facility] reviewed. MRI pending ALLERGIES: ALLERGIES Allergen Reactions [...] time she is coordinating her care with COACH TOUR DRIVER at [facility]. She has already been typed and with my colleague Dr. Reggie Dougherty. At this time she is fairly asymptomatic and her creatinine is normal by report. She does not wish to have intervention at this time. She will likely proceed to surgery with Dr. Ugalde at [facility]. All questions were answered. Osmel Hanson DO GIOVANNA Letter to: Kody Franco MD Referring Provider: MARIE PAUL [[id number]] Allergies As of Date: 06/11/2019 Noted Allergy [...] Encounter Status:Closed by OSMEL HANSON on 06/11/19 [facility] PROGRESSon 06-11-2019 PROGRESS HNO ID: [id number] Author: Osmel Hanson Service: ? Author Type: Physician Type: Progress Notes Filed: 06/11/2019 2:25 PM Note Text: ?? Formerly [facility] LOCATION: VIRTUAL VISIT NEW CONSULT VISIT [...] She already had an appointment with her tailer in at [facility]. She has an extensive history of endometriosis. She has some moderate left-sided flank pain that is manageable. By her report her creatinine at [facility] is almost normal. 1-Duration: 2019 2-Location: kidney [...] uuropoc,unitpoc,uw bcpoc,ucolpoc,uclar poc IMAGING: Imaging reports from [facility] reviewed. MRI pending ALLERGIES: ALLERGIES Allergen Reactions [...] time she is coordinating her care with COACH TOUR DRIVER at [facility]. She has already been typed and with my colleague Dr. Reggie Dougherty. At this time she is fairly asymptomatic and her creatinine is normal by report. She does not wish to have intervention at this time. She will likely proceed to surgery with Dr. Ugalde at [facility]. All questions were answered. 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 11-16-2016 Tobacco smoking status NHIS Never Invalid Interpretation Code [facility] Work Phone: Tobacco use HS Never smoker Invalid Interpretation Code [facility] Work Phone: Lab Report: Free T3on 2016 Triiodothyronine (T3) free 2.3 pg/mL Invalid Interpretation Code 2.18-3.98 [facility] Work Phone: Lab Report: T4 Free Directon 10-24-2016 Thyroxine (T4) free 1.13 ng/dL Invalid Interpretation Code 0.76-1.46 [facility] Work Phone: Lab Report: Thyroid Stim Hor vee (TSH)on 10-24-2016 Thyroid stimulating hormone (TSH) 1.06 u[iU]/mL Invalid Interpretation Code 0.358-3.74 [facility] Work Phone: Vital Signs Date Time Vital Sign Value Performing Clinician Facility 11-17-2016 08:13-0400 BMI (Body Mass Index) 25.62 kg/m2 [facility] Work Phone: 11-17-2016 08:13-0400 Body Temperature 98.5 [degF] Rasheeda Thomas LPN [facility] Work Phone: 11-17-2016 08:13-0400 BP Diastolic 73 mm[Hg] Rasheeda Thomas LPN [facility] Work Phone: 11-17-2016 08:13-0400 [...] 10-24-2016 Thyroid stimulating hormone (TSH) Laura Leal MOLDER MACHINE Work Phone: Start: 09-21-2016 End: 10-24-2016 Thyroxine (T4) free Laura Leal MOLDER MACHINE Work Phone: Start: 09-21-2016 End: 10-24-2016 Triiodothyronine (T3) free Laura long MOLDER MACHINE Work Phone: Plan of Treatment Date Care Activity Detail Author Start: 11-17-2016 End: 11-17-2016 Appointment Appointment [facility] Work Phone: Start: 10-20-2016 End: 10-20-2016 Appointment Appointment [facility] Work Phone: Start: 09-21-2016 End: 10-24-2016 Thyroid stimulating hormone (TSH) *TSH [facility] Work Phone: Start: 09-21-2016 End: 10-24-2016 Thyroxine (T4) free *T4 free [facility] Work Phone: Start: 09-21-2016 End: 10-24-2016 Triiodothyronine (T3) free *T3-Free [facility] Work Phone: Summary Purpose Family History No Family History Records Found Advance Directives No Advanced Directives Records Found Additional Source Comments INFORMATION SOURCE (unrecogn ized section and content) DATE CREATED AUTHOR 06/11/2019 [facility] FOR RECORDS PERTAINING TO PATIENTS WHO ARE [...] BE BASED ON THE PRIMARY CLINICAL RECORDS. [employer] provides no warranty or guarantee of the accuracy or completeness of information in this document.
[2023-12-14 22:25] VITALS: BP 114/67; PULSE 82; RESP 16; TEMP 36.7; O2SAT 99
--- NOTE | 2023-12-14 23:08 | PCM.HOSP.N ---
Hospitalist Note Patient with positive stool studies notable for Salmonella. Given significant presentation with GI losses resulting in significant acute kidney injury will choose to initiate antibiotic therapy at this time. Will defer a olivia quinolone given severity of acute kidney injury and will opt at this time for Rocephin 1 g every 24 hours.
[2023-12-14] MEDS: Ceftriaxone 1 GM/50 ML BAG IV (23:41)
[2023-12-15 03:02] VITALS: BP 129/68; PULSE 84; RESP 16; TEMP 36.7; O2SAT 98
[2023-12-15] MEDS: HYDROmorphone 0.5 MG/0.5 ML SYRINGE IV (03:16)
[2023-12-15] MEDS: proCHLORPERazine 10 MG/2 ML Vial IV (03:16)
[2023-12-15] MEDS: Levothyroxine 125 MCG Tablet PO (06:29)
[2023-12-15 07:15] LABS: Hematocrit 44.8 % (37-47); Hemoglobin 14.7 g/dL (12.0-15.0); Mean Corp Hgb Conc 32.8 g/dL (32-36); Mean Corpuscular Hgb 30.2 pg (27.0-32.0); Mean Corpuscular Volume 92.2 fL (81-99); Mean Platelet Vol. 10.3 fl (6.2-12.0); Platelet Count 250 K/mm3 (150-450); RBC Distribution Width CV 12.9 % (11.6-14.6); RBC Distribution Width SD 43.8 fl (35.1-43.9); Red Blood Count 4.86 M/mm3 (4.2-5.4); White Blood Count 7.8 K/mm3 (4.4-11.0)
[2023-12-15 07:47] LABS: Anion Gap 5 (5-15); BUN 46 mg/dL (7-18); BUN/Creat Ratio 20.6 RATIO (10-20); Calcium,Total 9.1 mg/dL (8.5-10.1); Chloride 105 mmol/L (98-107); Creatinine, Serum 2.23 mg/dL (0.55-1.02); EST Glomerular Filtration Rate 24 mL/min (>60); Est Glom Filt Rate - Afr Amer 30 mL/min (>60); Estimated Creatinine Clearance 28.37 ml/min; Glucose 153 mg/dL (74-106); Potassium 2.5 mmol/L (3.5-5.1); Sodium Level 133 mmol/L (136-145)
--- NOTE | 2023-12-15 07:53 | PN.HOSP_ITS ---
Reason for Visit Reason for Visit: Diagnoses Hypokalemia (12/14/23) Acute kidney failure, unspecified (12/14/23) Nausea with vomiting, unspecified (12/14/23) Diarrhea, unspecified (12/14/23) Objective Data Objective Data Vital Signs: Vital Signs Temp Pulse Resp BP Pulse Ox O2 Del Method 98.0 F 84 16 129/68 H 98 Room Air 12/15/23 03:02 12/15/23 03:02 12/15/23 03:02 12/15/23 03:02 12/15/23 03:02 12/15/23 07:45 Oxygen Delivery Method Room Air Weight: 145 lb Body Mass Index (BMI) 22.7 Intake & Output: Intake and Output for Last 24 Hours 12/13/23 12/14/23 12/15/23 23:59 23:59 23:59 Intake Total 2119 / 2119 1050 / 1050 Balance 2119 / 2119 1050 / 1050 Lab / Micro Data 12/15/23 06:37 12/15/23 06:37 Labs: Laboratory Results - last 24 hr 12/14/23 11:50: WBC 11.5 H, RBC 5.63 H, Hgb 17.0 H, Hct 51.7 H, MCV 91.8, MCH 30.2, MCHC 32.9, RDW Std Deviation 44.7 H, RDW Coeff of Rosetta 13.2, Plt Count 313, MPV 9.8, Immature Gran % (Auto) 0.300, Neut % (Auto) 88.4 H, Lymph % (Auto) 4.2 L, Perry % (Auto) 6.7, Eos % (Auto) 0.0, Baso % (Auto) 0.4, Absolute Neuts (auto) 10.1 H, Absolute Lymphs (auto) 0.48 L, Nucleated RBC % 0, Differential Comment COMMENT, Sodium 133 L, Potassium 3.2 L, Chloride 98, Carbon Dioxide 28.0, Anion Gap 7, BUN 45 H, Creatinine 3.23 H, Estim Creat Clear Calc 19.59, Est GFR (MDRD) Af Amer 19 L, Est GFR (MDRD) Non-Af 16 L, BUN/Creatinine Ratio 13.9, Glucose 199 H, Calcium 9.9, Phosphorus 6.6 H, Magnesium 2.5, Total Bilirubin 0.60, AST 22, ALT 36, Alkaline Phosphatase 91, Total Protein 9.1 H, Albumin 4.1, Globulin 5.0 H, Albumin/Globulin Ratio 0.8 L, Lipase 63 12/15/23 06:37: WBC 7.8, RBC 4.86, Hgb 14.7, Hct 44.8, MCV 92.2, MCH 30.2, MCHC 32.8, RDW Std Deviation 43.8, RDW Coeff of Rosetta 12.9, Plt Count 250, MPV 10.3, S odium 133 L, Potassium 2.5 L*, Chloride 105, Carbon Dioxide 23.0, Anion Gap 5, B UN 46 H, Creatinine 2.23 H, Estim Creat Clear Calc 28.37, Est GFR (MDRD) Af Amer 30 L, Est GFR (MDRD) Non-Af 24 L, BUN/Creatinine Ratio 20.6 H, Glucose 153 H, Calcium 9.1 Micro: Microbiology 12/14/23 17:27 Stool Enteric Bacteriology - Final Salmonella Sp. 12/14/23 17:27 Stool Clostridioides difficile (PCR) - Final 12/14/23 11:45 Mucosa - Nose SARS-CoV-2, Influenza & RSV (PCR) - Final Radiography Diagnostic Testing: Radiology Impression Abdomen/Pelvis CT 12/14/23 15:42 IMPRESSION: No acute abnormalities in the abdomen or pelvis. Electronically Signed: Solitario Whiting MD at 17:12 EDT , Assessment & Plan Assessment/Plan (1) Nausea, vomiting, and diarrhea: (2) Acute kidney injury: (3) Hypokalemia: PLAN: Plan Patient is a 53-year-old female who presented [facility] ED on 12/14/2023 with 1 day history of nausea/vomiting/diarrhea and abdominal discomfort. 1. Suspected gastroenteritis ? Admit under inpatient status to [facility]. Symptoms seem most consistent with gastroenteritis. Hemodynamically stable, afebrile here and normal WBC count with no recent antibiotic use; low concern for C. difficile but will send enteric stool panel and C. difficile to rule this out. Treating with supplemental IV fluids as noted below. Pain control with Tylenol, oxycodone and low-dose IV Dilaudid as needed for now. If stool studies are negative, can consider starting Lomotil or Bentyl for symptom management. Zofran as needed ordered for nausea control. 2. AGUSTO on CKD stage II ? Creatinine 3.23 on admit, baseline around 1.1. Suspect prerenal due to GI losses as noted above. Given 1 L normal saline in the ED and will give another 1 L LR on arrival to the floor. Follow-up a.m. BMP and monitor urine output. 3. Mild hyponatremia ?Sodium 133 on admit. Presumed secondary to GI losses as above. Follow-up a.m. BMP. 4. Hypokalemia ? Potassium 3.2 on admit. Mag and Phos ordered. Presumed secondary to GI losses. Follow-up a.m. BMP. Replete potassium as needed. Chronic medical conditions: ? Hypothyroidism: Continue home Synthroid. ? Anxiety/depression: Continue home bupropion. ? History of hysterectomy DVT prophylaxis: Heparin subcu CODE STATUS: Full code, verified
--- NOTE | 2023-12-15 07:53 | PCM.PN.HOSP ---
Reason for Visit Reason for Visit: Diagnoses Hypokalemia (12/14/23) Acute kidney failure, unspecified (12/14/23) Nausea with vomiting, unspecified (12/14/23) Diarrhea, unspecified (12/14/23) Objective Data Objective Data Vital Signs: Vital Signs Temp Pulse Resp BP Pulse Ox O2 Del Method 98.0 F 84 16 129/68 H 98 Room Air 12/15/23 03:02 12/15/23 03:02 12/15/23 03:02 12/15/23 03:02 12/15/23 03:02 12/15/23 07:45 Oxygen Delivery Method Room Air Weight: 145 lb Body Mass Index (BMI) 22.7 Intake & Output: Intake and Output for Last 24 Hours 12/13/23 12/14/23 12/15/23 23:59 23:59 23:59 Intake Total 2119 / 2119 1050 / 1050 Balance 2119 / 2119 1050 / 1050 Lab / Micro Data 12/15/23 06:37 12/15/23 14:18 Labs: Laboratory Results - last 24 hr 12/14/23 11:50: WBC 11.5 H, RBC 5.63 H, Hgb 17.0 H, Hct 51.7 H, MCV 91.8, MCH 30.2, MCHC 32.9, RDW Std Deviation 44.7 H, RDW Coeff of Rosetta 13.2, Plt Count 313, MPV 9.8, Immature Gran % (Auto) 0.300, Neut % (Auto) 88.4 H, Lymph % (Auto) 4.2 L, [place] % (Auto) 6.7, Eos % (Auto) 0.0, Baso % (Auto) 0.4, Absolute Neuts (auto) 10.1 H, Absolute Lymphs (auto) 0.48 L, Nucleated RBC % 0, Differential Comment COMMENT, Sodium 133 L, Potassium 3.2 L, Chloride 98, Carbon Dioxide 28.0, Anion Gap 7, BUN 45 H, Creatinine 3.23 H, Estim Creat Clear Calc 19.59, Est GFR (MDRD) Af Amer 19 L, Est GFR (MDRD) Non-Af 16 L, BUN/Creatinine Ratio 13.9, Glucose 199 H, Calcium 9.9, Phosphorus 6.6 H, Magnesium 2.5, Total Bilirubin 0.60, AST 22, ALT 36, Alkaline Phosphatase 91, Total Protein 9.1 H, Albumin 4.1, Globulin 5.0 H, Albumin/Globulin Ratio 0.8 L, Lipase 63 12/15/23 06:37: WBC 7.8, RBC 4.86, Hgb 14.7, Hct 44.8, MCV 92.2, MCH 30.2, MCHC 32.8, RDW Std Deviation 43.8, RDW Coeff of [place]etta 12.9, Plt Count 250, MPV 10.3, Sodium 133 L, Potassium 2.5 L*, Chloride 105, Carbon Dioxide 23.0, Anion Gap 5, BUN 46 H, Creatinine 2.23 H, Estim Creat Clear Calc 28.37, Est GFR (MDRD) Af Amer 30 L, Est GFR (MDRD) Non-Af 24 L, BUN/Creatinine Ratio 20.6 H, Glucose 153 H, Calcium 9.1 Micro: Microbiology 12/14/23 17:27 Stool Enteric Bacteriology - Final Salmonella Sp. 12/14/23 17:27 Stool Clostridioides difficile (PCR) - Final 12/14/23 11:45 Mucosa - Nose SARS-CoV-2, Influenza & RSV (PCR) - Final Radiography Diagnostic Testing: Radiology Impression Abdomen/Pelvis CT 12/14/23 15:42 IMPRESSION: No acute abnormalities in the abdomen or pelvis. Electronically Signed: Solitario Whiting MD at 17:12 EDT , Physical Exam Narrative Seen and examined. Patient does not have a prior GI disease or disorder. Patient is still has diarrhea, intermittent cramps but nausea and vomiting has improved. Diarrhea frequency is also improving. Physical exam General: Alert, Oriented x3, Cooperative HEENT: Atraumatic, PERRLA, EOMI, Normocephalic Oral: Oral mucosa dry no Gingival or Mucosal Lesions/ Ulcerations Neck: Supple, No JVD, Negative Carotid Bruits Chest wall/Lungs: Air entry diminished in bilateral lung bases. No crepitation/rhonchi Cardiovascular: Regular rate, Regular Rhythm, Normal S1, Normal S2, No M/G/R Abdomen: Bowel Sounds Present, Soft, Non Tender, Non-Distended : No dysuria. No renal angle tenderness. No suprapubic tenderness. Extremities: No edema, Capillary Refill Less than 3 Seconds Skin: No rashes, No breakdown Musculoskeletal: No Tenderness to Palpation of Joints or Extremities Neurological: Cranial nerves II-XII grossly intact, DTR 2+/4. No acute focal neurological deficit. Psych/Mental Status: Normal Affect, Appropriate. Assessment & Plan Assessment/Plan (1) Nausea, vomiting, and diarrhea: (2) Acute kidney injury: (3) Hypokalemia: PLAN: Plan Patient is a 53-year-old female who presented [facility] ED on 12/14/2023 with 1 day history of nausea/vomiting/diarrhea and abdominal discomfort. 1. Acute enteritis due to Salmonella: ? Admit under inpatient status to [facility]. Blood pressure running 110s. Continue IV fluid normal saline 125 mL/h. Started on IV ceftriaxone but changed to Cipro as drug of choice for Salmonella enteritis. Stool for C. difficile negative. Symptomatic management for nausea. Abdominal cramps has improved. Bentyl for abdominal cramps. 2. AGUSTO on CKD stage II ? Creatinine 3.23 on admit, baseline around 1.1. Suspect prerenal due to GI losses as noted above. 12/14: BUNs/creatinine improving. Creatinine 1.76. Continue IV fluid support. Monitor intake and output. 3. Mild hyponatremia ?Sodium 133 on admit. Presumed secondary to GI losses as above. Follow-up a.m. BMP. 12/14: Sodium 134. On IV fluid normal saline. 4. Hypokalemia ? Potassium 3.2 on admit. Mag and Phos ordered. Presumed secondary to GI losses. Follow-up a.m. BMP. Replete potassium as needed. 12/14: Potassium is still low despite aggressive replacement. Potassium 2.8 after replacement in the morning. IV KCl ordered. Serum magnesium normal. Phosphorus high 6.6 Chronic medical conditions: ? Hypothyroidism: Continue home Synthroid. ? Anxiety/depression: Continue home bupropion. ? History of hysterectomy DVT prophylaxis: Heparin subcu CODE STATUS: Full code, verified Microbiology Past 72 Hours 12/14/23 17:27 Stool Enteric Bacteriology - Final Salmonella Sp. 12/14/23 17:27 Stool Clostridioides difficile (PCR) - Final 12/14/23 11:45 Mucosa - Nose SARS-CoV-2, Influenza & RSV (PCR) - Final Laboratory Results 12/15/23 06:37: WBC 7.8, RBC 4.86, Hgb 14.7, Hct 44.8, MCV 92.2, MCH 30.2, MCHC 32.8, RDW Std Deviation 43.8, RDW Coeff of [place] 12.9, Plt Count 250, MPV 10.3, Sodium 133 L, Potassium 2.5 L*, Chloride 105, Carbon Dioxide 23.0, Anion Gap 5, BUN 46 H, Creatinine 2.23 H, Estim Creat Clear Calc 28.37, Est GFR (MDRD) Af Amer 30 L, Est GFR (MDRD) Non-Af 24 L, BUN/Creatinine Ratio 20.6 H, Glucose 153 H, Calcium 9.1 12/15/23 14:18: Sodium 134 L, Potassium 2.8 L, Chloride 106, Carbon Dioxide 24.0, Anion Gap 4 L, BUN 41 H, Creatinine 1.76 H, Estim Creat Clear Calc 35.95, Est GFR (MDRD) Af Amer 39 L, Est GFR (MDRD) Non-Af 32 L, BUN/Creatinine Ratio 23.3 H, Glucose 133 H, Calcium 9.2 Charges/Coding Visit Charges Inpatient E&M: 08934 Subs Hosp L2
[2023-12-15 09:02] VITALS: BP 114/73; PULSE 75; RESP 16; TEMP 36.6; O2SAT 98
[2023-12-15] MEDS: Potassium Chloride 10mEq/100mL 10 MEQ/100 ML IV.SOLN. 100 MEQ IV BOLUS ×7 (09:04→21:17)
[2023-12-15] MEDS: Ensure Clear 120 ML Liquid PO (09:05)
[2023-12-15] MEDS: buPROPion (XL) 150 MG TABLET.XL PO (09:05)
[2023-12-15] MEDS: Cholecalciferol (VIT D3) 25 MCG TABLET (1,000 UNITS) PO (09:05)
[2023-12-15] MEDS: Lactobacillis Acidophilus 1 CAP PO (09:05)
--- NOTE | 2023-12-15 10:00 | CASEMGMT ---
EVELYN SMITH Assessment: Face to Face with pt for initial transition planning/care coordination assessment. EVELYN SMITH introduced self and role at [facility], pt voices understanding and consents to assessment. Pt is A&O x4 and answers all questions appropriately at this time. Pt lying in bed in no distress. Care providers, pharmacy, and demographics verified/updated. Admitting Dx: AGUSTO with dehydration from gastroenteritis Strata Score: 2 PCP:DAVID Lu Specialists:Denies Preferred Pharmacy:[facility] Insurance: [facility] Prescription Benefit: yes LNOK: Riki Huerta, Living Arrangements: Pt lives with in a two story home with 2 steps to enter. Pt reports she is I in ADLs and denies concerns at home. Transportation: Pt drives self and denies concerns with transportation. DME:Denies HHC/SNF: Denies hx of Pt states no concerns with going home at time of dc. Pt reports she was at a banquet with [phone] people and feels this is where she may have gotten ill. Pt states no further concerns/needs. CM to follow. Advised pt to ask CM if any further question/concerns/needs arise, voices understanding. Pt Goal: Home Plan: Home Gretel RIVAS CM
[2023-12-15 14:05] VITALS: BP 106/70; PULSE 76; RESP 16; TEMP 36.7; O2SAT 100
[2023-12-15 14:46] LABS: Anion Gap 4 (5-15); BUN 41 mg/dL (7-18); BUN/Creat Ratio 23.3 RATIO (10-20); Calcium,Total 9.2 mg/dL (8.5-10.1); Chloride 106 mmol/L (98-107); Creatinine, Serum 1.76 mg/dL (0.55-1.02); EST Glomerular Filtration Rate 32 mL/min (>60); Est Glom Filt Rate - Afr Amer 39 mL/min (>60); Estimated Creatinine Clearance 35.95 ml/min; Glucose 133 mg/dL (74-106); Potassium 2.8 mmol/L (3.5-5.1); Sodium Level 134 mmol/L (136-145)
[2023-12-15] MEDS: 0.9% Normal Saline (1000mL) 1,000 ML 125 ML IV (16:41)
[2023-12-15] MEDS: 0.9% Saline Lock 10 ML Syringe IV (16:41)
[2023-12-15] MEDS: Ciprofloxacin 200 MG/100 ML BAG 100 MG IV (22:27)
[2023-12-15 22:32] VITALS: BP 116/68; PULSE 68; RESP 16; TEMP 36.9; O2SAT 99
[2023-12-16] MEDS: 0.9% Normal Saline (1000mL) 1,000 ML 125 ML IV (00:33)
[2023-12-16 06:03] VITALS: BP 105/63; PULSE 73; RESP 16; TEMP 36.7; O2SAT 100
[2023-12-16] MEDS: Levothyroxine 125 MCG Tablet PO (06:05)
[2023-12-16 07:16] LABS: Absolute Lymphocyte Count 0.78 X10^3/uL (0.83-4.51); Absolute Neutrophil Count 4.9 X10^3/uL (2.0-7.7); Basophil# 0.07 X10^3/uL; Eosinophil# 0.12 X10^3/uL; Eosinophils% 1.7 % (0-5); Hematocrit 42.1 % (37-47); Hemoglobin 13.6 g/dL (12.0-15.0); Lymphocyte # 0.78 X10^3/ul (0.83-4.51); Lymphocyte % 11.3 % (19-41); Mean Corp Hgb Conc 32.3 g/dL (32-36); Mean Corpuscular Volume 92.9 fL (81-99); Mean Platelet Vol. 10.2 fl (6.2-12.0); Monocyte# 1.01 X10^3/uL; Monocyte% 14.7 % (0-10); NRBC Flagged by Analyzer 0 % (0-5); Neutrophil # 4.86 X10^3/uL (2.7-7.7); Neutrophil % 70.6 % (47-70); POSITIVE MORPHOLOGY YES; Platelet Count 245 K/mm3 (150-450); RBC Distribution Width CV 12.6 % (11.6-14.6); RBC Distribution Width SD 43.5 fl (35.1-43.9); Red Blood Count 4.53 M/mm3 (4.2-5.4); White Blood Count 6.9 K/mm3 (4.4-11.0)
[2023-12-16 07:25] LABS: Differential Indicated SCAN CRITERIA MET
[2023-12-16 07:26] LABS: Anion Gap 4 (5-15); BUN 27 mg/dL (7-18); BUN/Creat Ratio 20.5 RATIO (10-20); Calcium,Total 8.6 mg/dL (8.5-10.1); Chloride 108 mmol/L (98-107); Creatinine, Serum 1.32 mg/dL (0.55-1.02); EST Glomerular Filtration Rate 45 mL/min (>60); Est Glom Filt Rate - Afr Amer 54 mL/min (>60); Estimated Creatinine Clearance 47.93 ml/min; Glucose 111 mg/dL (74-106); Magnesium 2.2 mg/dL (1.6-2.6); Phosphorus 1.8 mg/dL (2.5-4.9); Potassium 2.8 mmol/L (3.5-5.1); Sodium Level 136 mmol/L (136-145)
[2023-12-16] MEDS: Lactated Ringers 1,000 ML 150 ML IV ×2 (08:41→18:11)
[2023-12-16] MEDS: Potassium Phosphate 21 MM in 0.9% Normal Saline (250mL Bag) 250 ML 84 MM IV ×2 (08:41→19:00)
[2023-12-16 08:46] VITALS: BP 117/68; PULSE 60; RESP 16; TEMP 36.6; O2SAT 98
[2023-12-16 08:54] LABS: Differential Comment SCANNED; Platelet Estimate ADEQUATE (ADEQ); Red Cell Morphology NORM C+C NORMAL (NORM C&C)
[2023-12-16] MEDS: buPROPion (XL) 150 MG TABLET.XL PO (09:00)
[2023-12-16] MEDS: Lactobacillis Acidophilus 1 CAP PO (09:00)
[2023-12-16] MEDS: Cholecalciferol (VIT D3) 25 MCG TABLET (1,000 UNITS) PO (09:00)
--- NOTE | 2023-12-16 09:20 | CASEMGMT ---
Social Work SW let pt know LW/POA not on file, asked her to bring in the documents as able. Pt states understanding. SARAH Allen
[2023-12-16 09:29] LABS: Urine Sodium 6 mmol/L (Not Establ.)
--- NOTE | 2023-12-16 10:13 | PCM.DC ---
Discharge Instructions Diet Discharge Diet: No restrictions Activity Discharge Activity: Return to Normal Activity Weight Bearing Status: Weight bearing as tolerated Dressing / Incision Call your doctor if you observe: Fever of 101 or Higher, Coldness, Increased Pain, Numbness or Tingling, Change in Color, Inability to urinate, Inability to have a bowel movement, Shortness of breath, Dizziness, Fainting spells, Swelling in the ankles, Chest pain, Prolonged hiccupping, Increased palpitations (irregular heartbeat) and Calf discomfort Follow Up Care When: IN 2 WEEKS Test Results: Test results from this visit will be discussed in further detail at your follow-up appointment, if applicable. Discharge Plan Admission Admit Date/Time: 12/14/23 14:54 Primary Reason for Your Visit: Salmonella gastroenteritis Attending Provider: Abdias Pereira Primary Care Provider: Claire Lu NP Consulting Providers: Mehul Granados Instructions Additional Instructions / Restrictions: Advised BMP, magnesium and phosphorus in 3 days and follow with PC Discharge Orders/Prescriptions Prescriptions: New ciprofloxacin HCl [Cipro] 500 mg tablet 500 mg PO BID 5 Days Qty: 10 0RF potassium chloride 20 mEq tablet extended release 40 meq PO DAILY 5 Days Qty: 10 0RF Continued vitamin B complex 1 EACH capsule 1 ea PO DAILY cholecalciferol (vitamin D3) [Vitamin D3] 1,000 UNIT capsule 1,000 unit PO DAILY Multipak 1 pkg PO DAILY L.acidoph, paracasei,B. lactis 1 EACH capsule 1 ea PO DAILY levothyroxine 125 mcg tablet 125 mcg PO DAILY bupropion HCl 150 mg tablet extended release 24 hr 150 mg PO DAILY Referrals / Follow Up: Claire Lu MARKETING DIRECTOR ASSISTED LIVING, MARKETING DIRECT[facility]IV[facility] [Primary Care Provider] - Within 1 Week (To follow-up BMP) Disposition Disposition (needs filled in before D/C Order can be placed): Home, Self Care
[2023-12-16] MEDS: Ensure Clear 120 ML Liquid PO (12:30)
--- NOTE | 2023-12-16 12:30 | PCM.DC.SUM ---
Providers Date of Admission: 12/14/23 Date of Discharge: 12/17/23 Primary Care Physician: Claire Lu, OUTDOOR ILLUMINATING ENGINEER-C Reason For Visit: AGUSTO W/ DEHYDRATION FROM GASTROENTERITIS Diagnosis Discharge Diagnosis (1) Nausea, vomiting, and diarrhea: Status: Acute Code(s): R11.2 - Nausea with vomiting, unspecified; R19.7 - Diarrhea, unspecified (2) Acute kidney injury: Status: Acute Code(s): N17.9 - Acute kidney failure, unspecified (3) Hypokalemia: Status: Acute Code(s): E87.6 - Hypokalemia Plan Patient is a 53-year-old female who presented [facility] ED on 12/14/2023 with 1 day history of nausea/vomiting/diarrhea and abdominal discomfort. 1. Acute enteritis due to Salmonella: ? Admit under inpatient status to [facility]. Blood pressure running 110s. Continue IV fluid normal saline 125 mL/h. Started on IV ceftriaxone but changed to Cipro as drug of choice for Salmonella enteritis. Stool for C. difficile negative. Symptomatic management for nausea. Abdominal cramps has improved. Bentyl for abdominal cramps. 2. AGUSTO on CKD stage II ? Creatinine 3.23 on admit, baseline around 1.1. Suspect prerenal due to GI losses as noted above. 12/14: BUNs/creatinine improving. Creatinine 1.76. Continue IV fluid support. Monitor intake and output. 12/15: BUN/creatinine much improved. BUN/creat 27/1.32. Getting IV fluid Ringer lactate. Patient could not be discharged yesterday as potassium came up low 2.4, phosphorus 2.0 even after IV potassium phosphate replacement. 3. Mild hyponatremia ?Sodium 133 on admit. Presumed secondary to GI losses as above. Follow-up a.m. BMP. 12/14: Sodium 134. On IV fluid normal saline. 12/15 serum sodium normal 136. 4. Hypokalemia ? Potassium 3.2 on admit. Mag and Phos ordered. Presumed secondary to GI losses. Follow-up a.m. BMP. Replete potassium as needed. 12/14: Potassium is still low despite aggressive replacement. Potassium 2.8 after replacement in the morning. IV KCl ordered. Serum magnesium normal. Phosphorus high 6.6 12/15: Serum potassium is still low 2.8, phosphorus 1.8. Magnesium normal. IV K-Phos 21 mg ordered. Repeat labs after completion of IV infusion ordered Chronic medical conditions: ? Hypothyroidism: Continue home Synthroid. ? Anxiety/depression: Continue home bupropion. ? History of hysterectomy DVT prophylaxis: Heparin subcu CODE STATUS: Full code, verified Microbiology Past 72 Hours 12/14/23 17:27 Stool Enteric Bacteriology - Final Salmonella Sp. 12/14/23 17:27 Stool Clostridioides difficile (PCR) - Final 12/14/23 11:45 Mucosa - Nose SARS-CoV-2, Influenza & RSV (PCR) - Final Laboratory Results 12/15/23 14:18: Sodium 134 L, Potassium 2.8 L, Chloride 106, Carbon Dioxide 24.0, Anion Gap 4 L, BUN 41 H, Creatinine 1.76 H, Estim Creat Clear Calc 35.95, Est GFR (MDRD) Af Amer 39 L, Est GFR (MDRD) Non-Af 32 L, BUN/Creatinine Ratio 23.3 H, Glucose 133 H, Calcium 9.2 12/16/23 06:10: WBC 6.9, RBC 4.53, Hgb 13.6, Hct 42.1, MCV 92.9, MCH 30.0, MCHC 32.3, RDW Std Deviation 43.5, RDW Coeff of Ros[place] 12.6, Plt Count 245, MPV 10.2, Immature Gran % (Auto) 0.700, Neut % (Auto) 70.6 H, Lymph % (Auto) 11.3 L, [place] % (Auto) 14.7 H, Eos % (Auto) 1.7, Baso % (Auto) 1.0, Absolute Neuts (auto) 4.9, Absolute Lymphs (auto) 0.78 L, Nucleated RBC % 0, Differential Comment SCANNED, Platelet Estimate ADEQUATE, RBC Morphology NORM C+C, Sodium 136, Potassium 2.8 L, Chloride 108 H, Carbon Dioxide 24.0, Anion Gap 4 L, BUN 27 H, Creatinine 1.32 H, Estim Creat Clear Calc 47.93, Est GFR (MDRD) Af Amer 54 L, Est GFR (MDRD) Non-Af 45 L, BUN/Creatinine Ratio 20.5 H, Glucose 111 H, Calcium 8.6, Phosphorus 1.8 L, Magnesium 2.2 12/16/23 08:10: Ur Random Sodium 6, Urine Creatinine 163.00 Medications at Discharge Home Medications Multipak 1 pkg PO DAILY supplement 01/18/18 cholecalciferol (vitamin D3) 25 mcg (1,000 unit) capsule (Vitamin D3) 1,000 unit PO DAILY vitamin 01/18/18 vitamin B complex 1 ea PO DAILY supplement 01/18/18 L.acidoph, paracasei,B. lactis 10 billion cell capsule 1 ea PO DAILY probiotic 03/12/18 bupropion HCl 150 mg 24 hr tablet, extended release 150 mg PO DAILY 12/14/23 levothyroxine 125 mcg tablet 125 mcg PO DAILY 12/14/23 ciprofloxacin HCl 500 mg tablet (Cipro) 500 mg PO BID 5 days #10 tabs 12/16/23 magnesium oxide 400 mg PO BID 5 days #10 tabs 12/17/23 potassium phosphate, monobasic 500 mg soluble tablet 500 mg PO BID 7 days #14 tabs 12/17/23 Physical Exam Narrative Seen and examined. Patient is feeling much better. Feels well-hydrated. Electrolytes are getting replacement. Diarrhea has improved total 5-6 in the last 12 hours. It was every hour yesterday. Patient does not have a prior GI disease or disorder. Patient is still has diarrhea, intermittent cramps but nausea and vomiting has improved. Diarrhea frequency is also improving. Physical exam General: Alert, Oriented x3, Cooperative HEENT: Atraumatic, PERRLA, EOMI, Normocephalic Oral: Oral mucosa dry no Gingival or Mucosal Lesions/ Ulcerations Neck: Supple, No JVD, Negative Carotid Bruits Chest wall/Lungs: Air entry diminished in bilateral lung bases. No crepitation/rhonchi Cardiovascular: Regular rate, Regular Rhythm, Normal S1, Normal S2, No M/G/R Abdomen: Bowel Sounds Present, Soft, Non Tender, Non-Distended : No dysuria. No renal angle tenderness. No suprapubic tenderness. Extremities: No edema, Capillary Refill Less than 3 Seconds Skin: No rashes, No breakdown Musculoskeletal: No Tenderness to Palpation of Joints or Extremities Neurological: Cranial nerves II-XII grossly intact, DTR 2+/4. No acute focal neurological deficit. Psych/Mental Status: Normal Affect, Appropriate. Weight / BMI Weight Weight: 145 lb Body Mass Index (BMI) 22.7 ABG / Lab / Microbiology Data 12/17/23 06:40 12/17/23 06:40 Laboratory: Laboratory Results - last 24 hr 12/15/23 14:18: Sodium 134 L, Potassium 2.8 L, Chloride 106, Carbon Dioxide 24.0, Anion Gap 4 L, BUN 41 H, Creatinine 1.76 H, Estim Creat Clear Calc 35.95, Est GFR (MDRD) Af Amer 39 L, Est GFR (MDRD) Non-Af 32 L, BUN/Creatinine Ratio 23.3 H, Glucose 133 H, Calcium 9.2 12/16/23 06:10: WBC 6.9, RBC 4.53, Hgb 13.6, Hct 42.1, MCV 92.9, MCH 30.0, MCHC 32.3, RDW Std Deviation 43.5, RDW Coeff of [place] 12.6, Plt Count 245, MPV 10.2, Immature Gran % (Auto) 0.700, Neut % (Auto) 70.6 H, Lymph % (Auto) 11.3 L, [place] % (Auto) 14.7 H, Eos % (Auto) 1.7, Baso % (Auto) 1.0, Absolute Neuts (auto) 4.9, Absolute Lymphs (auto) 0.78 L, Nucleated RBC % 0, Differential Comment SCANNED, Platelet Estimate ADEQUATE, RBC Morphology NORM C+C, Sodium 136, Potassium 2.8 L, Chloride 108 H, Carbon Dioxide 24.0, Anion Gap 4 L, BUN 27 H, Creatinine 1.32 H, Estim Creat Clear Calc 47.93, Est GFR (MDRD) Af Amer 54 L, Est GFR (MDRD) Non-Af 45 L, BUN/Creatinine Ratio 20.5 H, Glucose 111 H, Calcium 8.6, Phosphorus 1.8 L, Magnesium 2.2 12/16/23 08:10: Ur Random Sodium 6, Urine Creatinine 163.00 Microbiology: Microbiology 12/14/23 17:27 Stool Enteric Bacteriology - Final Salmonella Sp. 12/14/23 17:27 Stool Clostridioides difficile (PCR) - Final 12/14/23 11:45 Mucosa - Nose SARS-CoV-2, Influenza & RSV (PCR) - Final D/C Instructions Discharge Diet: No restrictions Weight Bearing Status: Weight bearing as tolerated Call your doctor if you observe: Fever of 101 or Higher, Coldness, Increased Pain, Numbness or Tingling, Change in Color, Inability to urinate, Inability to have a bowel movement, Shortness of breath, Dizziness, Fainting spells, Swelling in the ankles, Chest pain, Prolonged hiccupping, Increased palpitations (irregular heartbeat) and Calf discomfort When: IN 2 WEEKS Meaningful Use Info Meaningful Use Meaningful Use Diagnoses (Choose all that apply): None applicable Ischemic Stroke Statin Dosing Therapy Reference: STATIN DOSE THERAPY REFERENCE: * Patients > 75 years receive moderate or high dose statin therapy. * Patients 75 years or YOUNGER should receive HIGH intensity statin dose unless contraindicated. You will be required to document reason for non-treatment if statin daily dose does not meet guidelines. HIGH DOSE STATIN THERAPY DAILY Atorvastatin > than or = to 40 mg Rosuvastatin > than or = to 20 mg Amlodipine + Atorvastatin > than or = to 2.5/40 mg Ezetimibe + Simvastatin 10/80 mg Simvastatin 80mg Discharge Plan Admission Admit Date/Time: 12/14/23 14:54 Primary Reason for Your Visit: Salmonella gastroenteritis Attending Provider: Abdias Pereira Primary Care Provider: Claire Lu NP Consulting Providers: Mehul Granados Instructions Additional Instructions / Restrictions: Advised BMP, magnesium and phosphorus in 3 days and follow with PCP Advised home isolation for 1 more week Discharge Orders/Prescriptions Prescriptions: New ciprofloxacin HCl [Cipro] 500 mg tablet 500 mg PO BID 5 Days Qty: 10 0RF potassium phosphate, monobasic 500 mg tablet,soluble 500 mg PO BID 7 Days Qty: 14 0RF magnesium oxide 400 mg magnesium tablet 400 mg PO BID 5 Days Qty: 10 0RF Rx Instructions: Follow-up set of magnesium after 4 days Continued vitamin B complex 1 EACH capsule 1 ea PO DAILY cholecalciferol (vitamin D3) [Vitamin D3] 1,000 UNIT capsule 1,000 unit PO DAILY Multipak 1 pkg PO DAILY L.acidoph, paracasei,B. lactis 1 EACH capsule 1 ea PO DAILY levothyroxine 125 mcg tablet 125 mcg PO DAILY bupropion HCl 150 mg tablet extended release 24 hr 150 mg PO DAILY Referrals / Follow Up: Claire Lu OUTDOOR ILLUMINATING ENGINEER, OUTDOOR ILLUMINATING ENGINEER-C [Primary Care Provider] - Within 1 Week (To follow-up BMP magnesium and phosphorus) Disposition Disposition (needs filled in before D/C Order can be placed): Home, Self Care Charges/Coding Addendum Addendum: Consider there is documented as progress note Visit Charges Inpatient E&M: 17762 Subs Hosp L2
[2023-12-16 12:32] VITALS: BP 113/68; PULSE 74; RESP 16; TEMP 36.5; O2SAT 99
[2023-12-16] MEDS: Ciprofloxacin 200 MG/100 ML BAG 100 MG IV ×2 (13:16→20:30)
[2023-12-16 16:11] VITALS: BP 109/69; PULSE 80; RESP 16; TEMP 36.6; O2SAT 100
[2023-12-16 17:15] LABS: Potassium 2.4 mmol/L (3.5-5.1)
[2023-12-16] MEDS: Potassium Chloride Oral Tablet 20 MEQ 40 MEQ PO ×2 (17:46→19:00)
[2023-12-16 22:00] VITALS: BP 116/67; PULSE 77; RESP 16; TEMP 36.6; O2SAT 100
[2023-12-17 04:00] VITALS: BP 116/76; PULSE 65; PULSE 77; RESP 15; TEMP 36.6; O2SAT 99
[2023-12-17] MEDS: Levothyroxine 125 MCG Tablet PO (06:40)
[2023-12-17 07:21] LABS: Absolute Lymphocyte Count 0.97 X10^3/uL (0.83-4.51); Absolute Neutrophil Count 4.4 X10^3/uL (2.0-7.7); Basophil# 0.07 X10^3/uL; Eosinophil# 0.15 X10^3/uL; Eosinophils% 2.2 % (0-5); Hematocrit 39.2 % (37-47); Hemoglobin 12.9 g/dL (12.0-15.0); Lymphocyte # 0.97 X10^3/ul (0.83-4.51); Lymphocyte % 14.3 % (19-41); Mean Corp Hgb Conc 32.9 g/dL (32-36); Mean Corpuscular Hgb 30.5 pg (27.0-32.0); Mean Corpuscular Volume 92.7 fL (81-99); Monocyte# 1.11 X10^3/uL; Monocyte% 16.4 % (0-10); NRBC Flagged by Analyzer 0 % (0-5); Neutrophil # 4.38 X10^3/uL (2.7-7.7); Neutrophil % 64.6 % (47-70); Platelet Count 243 K/mm3 (150-450); RBC Distribution Width CV 12.6 % (11.6-14.6); Red Blood Count 4.23 M/mm3 (4.2-5.4); White Blood Count 6.8 K/mm3 (4.4-11.0)
[2023-12-17 07:47] LABS: Anion Gap 4 (5-15); BUN 12 mg/dL (7-18); BUN/Creat Ratio 11.7 RATIO (10-20); Calcium,Total 8.9 mg/dL (8.5-10.1); Chloride 110 mmol/L (98-107); Creatinine, Serum 1.03 mg/dL (0.55-1.02); EST Glomerular Filtration Rate 60 mL/min (>60); Est Glom Filt Rate - Afr Amer 72 mL/min (>60); Estimated Creatinine Clearance 61.43 ml/min; Glucose 106 mg/dL (74-106); Potassium 3.2 mmol/L (3.5-5.1); Sodium Level 140 mmol/L (136-145)
[2023-12-17 07:48] LABS: Phosphorus 2.2 mg/dL (2.5-4.9)
--- NOTE | 2023-12-17 09:18 | PCM.DC ---
Discharge Instructions Diet Discharge Diet: Light diet - advance as tolerated Activity Weight Bearing Status: Weight bearing as tolerated Dressing / Incision Call your doctor if you observe: Fever of 101 or Higher, Coldness, Increased Pain, Numbness or Tingling, Change in Color, Inability to urinate, Inability to have a bowel movement, Shortness of breath, Dizziness, Fainting spells, Swelling in the ankles, Chest pain, Prolonged hiccupping, Increased palpitations (irregular heartbeat) and Calf discomfort Follow Up Care Test Results: Test results from this visit will be discussed in further detail at your follow-up appointment, if applicable. Discharge Plan Admission Admit Date/Time: 12/14/23 14:54 Primary Reason for Your Visit: Salmonella gastroenteritis Attending Provider: Abdias Pereira Primary Care Provider: Claire Lu NP Consulting Providers: Mehul Granados Instructions Additional Instructions / Restrictions: Advised BMP, magnesium and phosphorus in 3 days and follow with PCP Advised home isolation for 1 more week Discharge Orders/Prescriptions Prescriptions: New ciprofloxacin HCl [Cipro] 500 mg tablet 500 mg PO BID 5 Days Qty: 10 0RF potassium phosphate, monobasic 500 mg tablet,soluble 500 mg PO BID 7 Days Qty: 14 0RF magnesium oxide 400 mg magnesium tablet 400 mg PO BID 5 Days Qty: 10 0RF Rx Instructions: Follow-up set of magnesium after 4 days Continued vitamin B complex 1 EACH capsule 1 ea PO DAILY cholecalciferol (vitamin D3) [Vitamin D3] 1,000 UNIT capsule 1,000 unit PO DAILY Multipak 1 pkg PO DAILY L.acidoph, paracasei,B. lactis 1 EACH capsule 1 ea PO DAILY levothyroxine 125 mcg tablet 125 mcg PO DAILY bupropion HCl 150 mg tablet extended release 24 hr 150 mg PO DAILY Referrals / Follow Up: Claire Lu PERIOPERATIVE ASSISTANT, PERIOPERATIVE ASSISTANT-C [Primary Care Provider] - Within 1 Week (To follow-up BMP magnesium and phosphorus) Disposition Disposition (needs filled in before D/C Order can be placed): Home, Self Care
--- NOTE | 2023-12-17 09:25 | DS.PCM_ITS ---
Providers Date of Admission: 12/14/23 Date of Discharge: 12/17/23 Primary Care Physician: Claire Lu, PRINTING TECHNICIAN-C Reason For Visit: AGUSTO W/ DEHYDRATION FROM GASTROENTERITIS Diagnosis Discharge Diagnosis (1) Nausea, vomiting, and diarrhea: Status: Acute Code(s): R11.2 - Nausea with vomiting, unspecified; R19.7 - Diarrhea, unspecified (2) Acute kidney injury: Status: Acute Code(s): N17.9 - Acute kidney failure, unspecified (3) Hypokalemia: Status: Acute Code(s): E87.6 - Hypokalemia Plan Patient is a 53-year-old female who presented [facility] ED on 12/14/2023 with 1 day history of nausea/vomiting/diarrhea and abdominal discomfort. 1. Acute enteritis due to Salmonella: ? Admit under inpatient status to [facility]. Blood pressure running 110s. Continue IV fluid normal saline 125 mL/h. Started on IV ceftriaxone but changed to Cipro as drug of choice for Salmonella enteritis. Stool for C. difficile negative. Symptomatic management for nausea. Abdominal cramps has improved. Bentyl for abdominal cramps. 2. AGUSTO on CKD stage II ? Creatinine 3.23 on admit, baseline around 1.1. Suspect prerenal due to GI losses as noted above. 12/14: BUNs/creatinine improving. Creatinine 1.76. Continue IV fluid support. Monitor intake and output. 12/15: BUN/creatinine much improved. BUN/creat 27/1.32. Getting IV fluid Ringer lactate. Patient could not be discharged yesterday as potassium came up low 2.4, phosphorus 2.0 even after IV potassium phosphate replacement. KD 40 mEq x 2 was ordered along with IV potassium phosphate 21 mmol. 12/16: Repeat labs today shows serum potassium better 3.2, phosphorus 2.1 serum magnesium normal. Neutra-Phos 2 packet was given. Patient discharged on Neutra-Phos for 7 more days and magnesium oxide for 5. Advised to follow-up labs BMP, magnesium and phosphorus with PCP in 3 days. 3. Mild hyponatremia ?Sodium 133 on admit. Presumed secondary to GI losses as above. Follow-up a.m. BMP. 12/14: Sodium 134. On IV fluid normal saline. 12/15 serum sodium normal 136. 4. Hypokalemia ? Potassium 3.2 on admit. Mag and Phos ordered. Presumed secondary to GI losses. Follow-up a.m. BMP. Replete potassium as needed. 12/14: Potassium is still low despite aggressive replacement. Potassium 2.8 after replacement in the morning. IV KCl ordered. Serum magnesium normal. Phosphorus high 6.6 12/15: Serum potassium is still low 2.8, phosphorus 1.8. Magnesium normal. IV K-Phos 21 mg ordered. Repeat labs after completion of IV infusion ordered Chronic medical conditions: ? Hypothyroidism: Continue home Synthroid. ? Anxiety/depression: Continue home bupropion. ? History of hysterectomy DVT prophylaxis: Heparin subcu CODE STATUS: Full code, verified Microbiology Past 72 Hours 12/14/23 17:27 Stool Enteric Bacteriology - Final Salmonella Sp. 12/14/23 17:27 Stool Clostridioides difficile (PCR) - Final 12/14/23 11:45 Mucosa - Nose SARS-CoV-2, Influenza & RSV (PCR) - Final Laboratory Results 12/16/23 08:10: Ur Random Sodium 6, Urine Creatinine 163.00 12/16/23 15:47: Potassium 2.4 L*, Phosphorus 2.0 L, Magnesium 2.0 12/17/23 06:40: WBC 6.8, RBC 4.23, Hgb 12.9, Hct 39.2, MCV 92.7, MCH 30.5, MCHC 32.9, RDW Std Deviation 43.0, RDW Coeff of Rosetta 12.6, Plt Count 243, MPV 10.0, I mmature Gran % (Auto) 1.500 H, Neut % (Auto) 64.6, Lymph % (Auto) 14.3 L, Vermilion % (Auto) 16.4 H, Eos % (Auto) 2.2, Baso % (Auto) 1.0, Absolute Neuts (auto) 4.4, Absolute Lymphs (auto) 0.97, Nucleated RBC % 0, Sodium 140, Potassium 3.2 L, C hloride 110 H, Carbon Dioxide 25.0, Anion Gap 4 L, BUN 12, Creatinine 1.03 H, Estim Creat Clear Calc 61.43, Est GFR (MDRD) Af Amer 72, Est GFR (MDRD) Non-Af 60, BUN/Creatinine Ratio 11.7, Glucose 106, Calcium 8.9, Phosphorus 2.2 L, Magnesium 2.0 Medications at Discharge Home Medications Multipak 1 pkg PO DAILY supplement 01/18/18 cholecalciferol (vitamin D3) 25 mcg (1,000 unit) capsule (Vitamin D3) 1,000 unit PO DAILY vitamin 01/18/18 vitamin B complex 1 ea PO DAILY supplement 01/18/18 L.acidoph, paracasei,B. lactis 10 billion cell capsule 1 ea PO DAILY probiotic 03/12/18 bupropion HCl 150 mg 24 hr tablet, extended release 150 mg PO DAILY 12/14/23 levothyroxine 125 mcg tablet 125 mcg PO DAILY 12/14/23 ciprofloxacin HCl 500 mg tablet (Cipro) 500 mg PO BID 5 days #10 tabs 12/16/23 magnesium oxide 400 mg PO BID 5 days #10 tabs 12/17/23 potassium phosphate, monobasic 500 mg soluble tablet 500 mg PO BID 7 days #14 tabs 12/17/23 Physical Exam Narrative Seen and examined. Patient is feeling much better. Feels well-hydrated. Diarrhea she feels when she goes to bathroom she has urgency. Diarrhea frequency has improved. It was every hour 2 days ago. Physical exam General: Alert, Oriented x3, Cooperative HEENT: Atraumatic, PERRLA, EOMI, Normocephalic Oral: Oral mucosa dry no Gingival or Mucosal Lesions/ Ulcerations Neck: Supple, No JVD, Negative Carotid Bruits Chest wall/Lungs: Air entry diminished in bilateral lung bases. No crepitation/rhonchi Cardiovascular: Regular rate, Regular Rhythm, Normal S1, Normal S2, No M/G/R Abdomen: Bowel Sounds Present, Soft, Non Tender, Non-Distended : No dysuria. No renal angle tenderness. No suprapubic tenderness. Extremities: No edema, Capillary Refill Less than 3 Seconds Skin: No rashes, No breakdown Musculoskeletal: No Tenderness to Palpation of Joints or Extremities Neurological: Cranial nerves II-XII grossly intact, DTR 2+/4. No acute focal neurological deficit. Psych/Mental Status: Normal Affect, Appropriate. Weight / BMI Weight Weight: 145 lb Body Mass Index (BMI) 22.7 ABG / Lab / Microbiology Data 12/17/23 06:40 12/17/23 06:40 Laboratory: Laboratory Results - last 24 hr 12/16/23 08:10: Ur Random Sodium 6, Urine Creatinine 163.00 12/16/23 15:47: Potassium 2.4 L*, Phosphorus 2.0 L, Magnesium 2.0 12/17/23 06:40: WBC 6.8, RBC 4.23, Hgb 12.9, Hct 39.2, MCV 92.7, MCH 30.5, MCHC 32.9, RDW Std Deviation 43.0, RDW Coeff of Rosetta 12.6, Plt Count 243, MPV 10.0, I mmature Gran % (Auto) 1.500 H, Neut % (Auto) 64.6, Lymph % (Auto) 14.3 L, Vermilion % (Auto) 16.4 H, Eos % (Auto) 2.2, Baso % (Auto) 1.0, Absolute Neuts (auto) 4.4, Absolute Lymphs (auto) 0.97, Nucleated RBC % 0, Sodium 140, Potassium 3.2 L, C hloride 110 H, Carbon Dioxide 25.0, Anion Gap 4 L, BUN 12, Creatinine 1.03 H, Estim Creat Clear Calc 61.43, Est GFR (MDRD) Af Amer 72, Est GFR (MDRD) Non-Af 60, BUN/Creatinine Ratio 11.7, Glucose 106, Calcium 8.9, Phosphorus 2.2 L, Magnesium 2.0 Microbiology: Microbiology 12/14/23 17:27 Stool Enteric Bacteriology - Final Salmonella Sp. 12/14/23 17:27 Stool Clostridioides difficile (PCR) - Final 12/14/23 11:45 Mucosa - Nose SARS-CoV-2, Influenza & RSV (PCR) - Final D/C Instructions Discharge Diet: Light diet - advance as tolerated Weight Bearing Status: Weight bearing as tolerated Call your doctor if you observe: Fever of 101 or Higher, Coldness, Increased Pain, Numbness or Tingling, Change in Color, Inability to urinate, Inability to have a bowel movement, Shortness of breath, Dizziness, Fainting spells, Swelling in the ankles, Chest pain, Prolonged hiccupping, Increased palpitations (irregular heartbeat) and Calf discomfort When: IN 2 WEEKS Meaningful Use Info Meaningful Use Meaningful Use Diagnoses (Choose all that apply): None applicable Ischemic Stroke Statin Dosing Therapy Reference: STATIN DOSE THERAPY REFERENCE: * Patients > 75 years receive moderate or high dose statin therapy. * Patients 75 years or YOUNGER should receive HIGH intensity statin dose unless contraindicated. You will be required to document reason for non-treatment if statin daily dose does not meet guidelines. HIGH DOSE STATIN THERAPY DAILY Atorvastatin > than or = to 40 mg Rosuvastatin > than or = to 20 mg Amlodipine + Atorvastatin > than or = to 2.5/40 mg Ezetimibe + Simvastatin 10/80 mg Simvastatin 80mg Discharge Plan Admission Admit Date/Time: 12/14/23 14:54 Primary Reason for Your Visit: Salmonella gastroenteritis Attending Provider: Abdias Pereira Primary Care Provider: Claire Lu NP Consulting Providers: Mehul Granados Instructions Additional Instructions / Restrictions: Advised BMP, magnesium and phosphorus in 3 days and follow with PCP Advised home isolation for 1 more week Discharge Orders/Prescriptions Prescriptions: New ciprofloxacin HCl [Cipro] 500 mg tablet 500 mg PO BID 5 Days Qty: 10 0RF potassium phosphate, monobasic 500 mg tablet,soluble 500 mg PO BID 7 Days Qty: 14 0RF magnesium oxide 400 mg magnesium tablet 400 mg PO BID 5 Days Qty: 10 0RF Rx Instructions: Follow-up set of magnesium after 4 days Continued vitamin B complex 1 EACH capsule 1 ea PO DAILY cholecalciferol (vitamin D3) [Vitamin D3] 1,000 UNIT capsule 1,000 unit PO DAILY Multipak 1 pkg PO DAILY L.acidoph, paracasei,B. lactis 1 EACH capsule 1 ea PO DAILY levothyroxine 125 mcg tablet 125 mcg PO DAILY bupropion HCl 150 mg tablet extended release 24 hr 150 mg PO DAILY Referrals / Follow Up: Claire Lu PRINTING TECHNICIAN, PRINTING TECHNICIAN-C [Primary Care Provider] - Within 1 Week (To follow-up BMP magnesium and phosphorus) Disposition Disposition (needs filled in before D/C Order can be placed): Home, Self Care Charges/Coding Visit Charges Inpatient E&M: 49515 Disch Hosp >30min
[2023-12-17 09:38] VITALS: BP 129/78; PULSE 75; RESP 16; TEMP 37; O2SAT 100
[2023-12-17] MEDS: Cholecalciferol (VIT D3) 25 MCG TABLET (1,000 UNITS) PO (09:43)
[2023-12-17] MEDS: Ciprofloxacin 200 MG/100 ML BAG 100 MG IV (09:43)
[2023-12-17] MEDS: Na Biphos/Potassium Phosphate PACKET 2 PACKET PO (09:43)
[2023-12-17] MEDS: Lactobacillis Acidophilus 1 CAP PO (09:43)
[2023-12-17] MEDS: buPROPion (XL) 150 MG TABLET.XL PO (09:43)
[2023-12-17 12:26] VITALS: BP 115/76; PULSE 74; RESP 16; TEMP 36.4; O2SAT 97
== END 2023-12-17 12:22 | disposition home or self-care (01) | DRG 372 ==
LOC: ED 14:48 → MS3 15:06
PROVIDERS: Admitting Provider Hospitalist; Emergency Provider Emergency Medicine; PCP Nurse Practitioner Family; Visit Provider Internal Medicine
DX: A02.0 Salmonella enteritis (principal); N17.9 Acute kidney failure, unspecified; E87.1 Hypo-osmolality and hyponatremia; F32.A Depression, unspecified; E03.9 Hypothyroidism, unspecified; F41.9 Anxiety disorder, unspecified; N18.2 Chronic kidney disease, stage 2 (mild); E87.6 Hypokalemia; E78.00 Pure hypercholesterolemia, unspecified; Z90.710 Acquired absence of both cervix and uterus
CPT/HCPCS: 36415; 74176; 80048; 80053; 82570; 83690; 83735; 84100; 84132; 84300; 85025; 85027; 87493; 87506; 87631; 94668; 97802; 99285; J7030; J7050; J7120; A4216; J0744; J2405

== ENCOUNTER → 2023-12-20 | Outpatient (CLI) | payer OTHER, SELFPAY ==
[2023-12-20 09:57] LABS: Hematocrit 40.3 % (37-47); Hemoglobin 13.4 g/dL (12.0-15.0); Mean Corp Hgb Conc 33.3 g/dL (32-36); Mean Corpuscular Hgb 30.3 pg (27.0-32.0); Mean Corpuscular Volume 91.2 fL (81-99); Mean Platelet Vol. 9.6 fl (6.2-12.0); POSITIVE COUNT YES; POSITIVE MORPHOLOGY YES; Platelet Count 344 K/mm3 (150-450); RBC Distribution Width CV 12.4 % (11.6-14.6); RBC Distribution Width SD 41.7 fl (35.1-43.9); Red Blood Count 4.42 M/mm3 (4.2-5.4); White Blood Count 8.6 K/mm3 (4.4-11.0)
[2023-12-20 09:58] LABS: Differential Indicated MANUAL DIFF
[2023-12-20 10:39] LABS: Vitamin B12 > 2000 pg/mL (211-911); Vitamin D,25 Hydroxy 87.1 ng/mL
[2023-12-20 10:50] LABS: Basophil 1 % (0-1); Eosinophil 5 % (0-5); Lymphocyte 28 % (19-41); Metamyelocyte 2 % (0-1); Monocyte 10 % (0-10); Myelocyte 1 % (0-0); Neutrophil-Segmented 53 % (47-70); Total Cells Counted 100 (MANUAL DIFF)
[2023-12-20 10:54] LABS: Absolute Neutrophil Count 4.5 X10^3/uL (2.0-7.7)
[2023-12-20 10:56] LABS: Platelet Estimate ADEQUATE (ADEQ)
[2023-12-20 10:57] LABS: Red Cell Morphology NORM C+C NORMAL (NORM C&C)
[2023-12-20 12:08] LABS: ALB/GLOB Ratio 0.9 RATIO (0.9-2.4); AST(SGOT) 40 U/L (15-37); Alanine Aminotransfer ALT/SGPT 44 U/L (13-56); Albumin, Serum 3.2 g/dL (3.2-5.0); Alkaline Phosphatase 73 U/L (45-117); Anion Gap 7 (5-15); BUN 7 mg/dL (7-18); BUN/Creat Ratio 7.1 RATIO (10-20); Calcium,Total 9.2 mg/dL (8.5-10.1); Chloride 105 mmol/L (98-107); Cholesterol 136 mg/dL (200); Creatinine, Serum 0.98 mg/dL (0.55-1.02); EST Glomerular Filtration Rate 63 mL/min (>60); Est Glom Filt Rate - Afr Amer 76 mL/min (>60); Estradiol 107.4 pg/mL; Free T3 1.8 pg/mL (2.18-3.98); Globulin 3.7 g/dL (2.2-4.2); Glucose 91 mg/dL (74-106); High Density Lipoprotein 54 mg/dL; Potassium 3.6 mmol/L (3.5-5.1); Protein, Total 6.9 g/dL (6.4-8.2); Sodium Level 136 mmol/L (136-145); T4 Free Direct 1.49 ng/dL (0.76-1.46); Triglycerides 81 mg/dL; Very Low Density Lipoprotein 16 mg/dL (5-40)
[2023-12-20 12:17] LABS: Hemoglobin A1c 5.9 % (3.8-5.6)
[2023-12-21 08:13] LABS: PROGESTERONE 0.1 ng/mL (.)
[2023-12-21 13:55] LABS: Pathologist Review Reviewed
[2023-12-21 16:10] LABS: DHEA Sulfate 89.9 ug/dL (41.2-243.7); Thyroglobulin Antibody 5.9 IU/mL (0.0-0.9); Thyroid Peroxidase AB 12 IU/mL (0-34)
== END | disposition home or self-care (01) ==
LOC: LAB 09:07
PROVIDERS: PCP Nurse Practitioner Family; Referring Provider Nurse Practitioner Family; Visit Provider Nurse Practitioner Family
DX: E03.8 Other specified hypothyroidism (principal); N18.31 Chronic kidney disease, stage 3a; E28.39 Other primary ovarian failure; F41.9 Anxiety disorder, unspecified
CPT/HCPCS: 36415; 80053; 80061; 82306; 82607; 82627; 82670; 82746; 83036; 84144; 84403; 84439; 84443; 84481; 85025; 86376; 86800; 82626

== ENCOUNTER → 2024-09-28 | Outpatient (CLI) | payer OTHER, SELFPAY ==
--- OUTSIDE RECORDS SUMMARY | 2024-09-28 10:48 | XMS RPT_ITS | CCD ---
Author Organization [facility] Inform ion Partnership [facility] Care Team Providers Care Rider Ticket Worker Name Role Phone Rasheeda Thomas LPN Unavailable Unavailable William HENSON, Rasheeda Marquez Unavailable Unavailable Rasheeda Thomas LPN Unavailable Unavailable Rasheeda Thomas LPN Unavailable Unavailable Laura Leal NP Unavailable [phone] Laura Leal NP Unavailable [phone] Tabitha HERNANDEZ, Claire Long Referring Unavailabl robert Lu SHIFT MGR, Claire Long Attending Unavailshante Lu SHIFT MGR, Claire Long Primary Care Unavailshante Lu NP, Claire Long Referring Unavailabl e Tabitha SHIFT MGR, Claire Long Attending Unavailshante Lu SHIFT MGR, Claire Long Primary Care Unavailshante Lu SHIFT MGR, Claire Long Referring Unavailabl e Tabitha HERNANDEZ, Claire Long Attending Unavailshante Lu SHIFT MGR, Claire Long Primary Care Unavailshante e Tabitha SHIFT MGR, Claire Long Referring Unavailabl e Tabitha SHIFT MGR, Claire Long Attending Unavailshante Lu SHIFT MGR, Claire Long Primary Care Unavailabl e Mehul Granados Consulting Unavailable Mehul Granados Admitting Unavailable Tabitha HERNANDEZ, Claire Long Primary Care Unavailabl e Abdias Pereira Attending Unavailable Tabitha SHIFT MGR, Claire Long Referring Unavailabl e Tabitha SHIFT MGR, Claire Long Attending Unavailshante Lu SHIFT MGR, Claire Long Primary Care Unavailabl e Tabitha SHIFT MGR, Claire Long Primary Care Unavailabl e Tabitha HERNANDEZ, Claire Long Referring Unavailabl e Tabitha SHIFT MGR, Claire Long Attending Unavailabl robert Lu SHIFT MGR, Claire Long Primary Care Unavailabl e Mehul Granados Admitting Unavailable Mehul Granados Consulting Unavailable Abdias Pereira Attending Unavailable Abdias Pereira Consulting Unavailable Mehul Granados Attending Unavailable Medications Current Medications Medication Drug Class(es) Dates Sig (Normalized) Sig (Original) cholecalciferol 0.025 mg oral capsule (9 sources) Vitamin D Start: 01-18-2018 take 1 capsule by mouth once daily Cholecalciferol (Vitamin D3) (Vitamin D3) 1,000 UNIT capsule Active 1000 UNIT PO DAILY January 18, 2018 1:00am ketorolac tromethamine 10 mg oral tablet (9 sources) Nonsteroidal Anti-inflammatory Drug, Cyclooxygenase Inhibitor Start: 05-25-2019 take 10 mg by mouth every six hours Ketorolac Active 10 MG PO EVERY 6 HOURS May 25, 2019 10:00am L.Acidoph, Paracasei,B. Lactis (9 sources) Start: 03-12-2018 L.Acidoph, Paracasei,B. Lactis Active 1 EACH PO DAILY March 12, 2018 12:58pm Start: 03-12-2018 L.Acidoph, Par acasei,B. Lactis Active 1 EACH PO DAILY March 12, 2018 12:00am Start: 03-12-2018 L.Acidoph, Par acasei,B. Lactis Active 1 EACH PO DAILY March 12, 2018 1:00am Multipak (9 sources) Start: 01-18-2018 Multipak Activ e 1 PKG PO DAILY January 18, 2018 3:59pm Start: 01-18-2018 Multipak Activ e 1 PKG PO DAILY January 18, 2018 12:00am Start: 01-18-2018 Multipak Activ e 1 PKG PO DAILY January 18, 2018 1:00am Vitamin B Complex (9 sources) Start: 01-18-2018 Vitamin B Comp lelo Active 1 EACH PO DAILY January 18, 2018 3:59pm Start: 01-18-2018 Vitamin B Comp lelo Active 1 EACH PO DAILY January 18, 2018 12:00am Start: 01-18-2018 Vitamin B Comp lelo Active 1 EACH PO DAILY January 18, 2018 1:00am Completed/Discontinued Medications Medication Drug Class(es) Dates Sig (Normalized) Sig (Original) acetaminophen 325 mg / HYDROcodone bitartrate 5 mg oral tablet (20 sources) Opioid Agonist Start: 05-25-2019 End: 06-01-2019 take 1 tablet by mouth every six hours as needed Hydrocodone-Acetami nophen Discontinued 1 TABLET PO EVERY 6 HOURS NEEDED 5 May 25, 2019 June 01, 2019 12:08am Start: 03-18-2018 End: 03-25-2018 Hydrocodone-Acetaminophen (V icodin 5-300 Mg Tablet) 1 EACH tablet Discontinued 1 - 2 EACH PO EVERY 4 HOURS NEEDED 20 March 18, 2018 9:31am March 25, 2018 1:08am Start: 03-15-2018 End: 03-17-2018 Hydrocodone-Acetaminophen (V icodin 5-300 Mg Tablet) 1 EACH tablet Discontinued 1 EACH PO Q4H March 15, 2018 1:00am March 17, 2018 6:27am Start: 03-12-2018 End: 03-15-2018 take 1 tablet by mouth every six hours as needed Hydrocodone-Acetaminophen Discontinued 1 TABLET PO EVERY 6 HOURS NEEDED 10 March 12, 2018 1:00am March 15, 2018 1:11am Drug Treatment Unknown - unknown (1 source) No information available. oxyCODONE hydrochloride 5 mg oral tablet (18 sources) Opioid Agonist Start: 03-17-2018 End: 03-24-2018 take 5 mg by mouth every six hours as needed Oxycodone Discontinued 5 MG PO EVERY 6 HOURS NEEDED 20 March 17, 2018 6:23am March 24, 2018 1:10am Start: 01-24-2018 End: 01-25-2018 take 5 mg by mouth every six hours as needed Oxycodone Discontinued 5 MG PO EVERY 6 HOURS NEEDED 4 January 24, 2018 1:00am January 25, 2018 1:08am levothyroxine sodium 0.112 mg oral tablet (20 sources) l-Thyroxine Start: 09-04-2017 End: 04-22-2021 Levothyroxine Discontinued 112 MCG PO .COMPLEX 60 March 26, 2021 7:06pm April 22, 2021 6:16pm 112 mcg PO one daily except 1/2 on Sundays; Start: 10-03-2016 take 1 tablet by th once daily LEVOTHYROXINE SODIUM 112 MCG TABS One tablet by mouth daily LEVOTHYROXINE SODIUM [id number] Laura Leal NP Problems Active Problems Problem Classification Problem Date Documented Da te Episodic/Chronic Acute and unspecified renal failure (1 source) Acute kidney failure, unspecified; Translations: [Acute kidney failure, unspecified] Onset: 12-17-2023 Episodic Chronic kidney disease (1 source) Chronic kidney disease; Translations: [Chronic kidney disease, stage 3a] Onset: 09-20-2023 Complications of surgical procedures or medical care (9 sources) Postoperative hypothyroidism; Translations: [Postprocedural hypothyroidism] 03-18-2018 Chronic Fluid and electrolyte disorders (1 source) Hypokalemia; Translations: [Hypokalemia] Onset: 12-17-2023 Episodic Nausea and vomiting (2 sources) Nausea with vomiting, unspecified; Translations: [Nausea with vomiting, unspecified] Onset: 12-17-2023 Episodic Other connective tissue disease (9 sources) Fibromyalgia; Translations: [Fibromyalgia] 05-25-2019 Episodic Other female genital disorders (9 sources) Cyst of uterine adnexa; Translations: [Unspecified condition associated with female genital organs and menstrual cycle] 05-25-2019 Episodic Other gastrointestinal disorders (1 source) Diarrhea, unspecified; Translations: [Diarrhea, unspecified] Onset: 12-17-2023 Episodic Thyroid disorders (1 source) Other specified hypothyroidism; Translations: [Other specified hypothyroidism] Onset: 01-14-2024 Chronic Past or Other Problems Problem Classification Problem Date Documented Da te Episodic/Chronic Abdominal pain (10 sources) Pain in pelvis; Translations: [Pelvic and perineal pain] Onset: 07-22-2023 05-25-2019 Episodic Thyroid disorders (7 sources) Disorder of thyroid gland; Translations: [Disorder of thyroid, unspecified] Onset: 09-21-2016 09-21-2016 Episodic Results Test Name Value Interpretation Reference Range Facility CBC W/Diff, Automatedon 12-11 PATH REV Reviewed Normal [facility] Comment on above: Result Comment: Neut rophilic left shift. Clinical correlation necessary. Christopher Issa M.D. 12/21/23 AMENDED REPORT 12/21/23 3755 PATH REV previously reported as: July Performed By: #### L 501.5200, L501.2300, L100.0100, L500.2500 #### [facility] [address] [place], [address] DHEA Sulfateon 12-21-2023 DHEA SULFATE 89.9 ug/dL Normal 41.2-243.7 [facility] Comment on above: Order Comment: N Performed By: #### L 500.2500 #### [facility] [address] [place], [place], [id number] PROGESTERONE 4317on 20 24 PROGESTERONE 0.1 ng/mL Normal . [facility] Comment on above: Order Comment: N Result Comment: Foll icular phase 0.1 - 0.9 Luteal phase 1.8 - 23.9 Ovulation phase 0.1 - 12.0 First trimester 11.0 - 44.3 Second trimester 25.4 - 83.3 Third trimester 58.7 - 214.0 Postmenopausal 0.0 - 0.1 Performed at: [address] [id number] Cash Management Associate: Nixon Woodard PhD, Phone: [phone] Performed By: #### L 500.2500 #### [facility] [address] [facility] [facility] [address] Thyroid Antibodieson 024 TG AB 5.9 IU/mL High 0.0-0.9 [facility] Comment on above: Order Comment: N Result Comment: Thyr oglobulin Antibody measured by Robin [place] Methodology It should be noted that the presence of thyroglobulin antibodies may not be pathogenic nor diagnostic, especially at very low levels. The assay container crane operator has found that four percent of individuals without evidence of thyroid disease or autoimmunity will have positive TgAb levels up to 4 IU/mL. Performed at: [address] [id number] Cash Management Associate: Nixon Woodard PhD, Phone: [phone] Performed By: #### L 500.2500 #### [facility] [address] [facility] [address] THYR PEROX AB 12 IU/mL Normal 0-34 [facility] Comment on above: Order Comment: N Performed By: #### L 500.2500 #### [facility] [address] [facility] [address] [place], [place], [id number] Comprehensive Metabolic Prof ilon 12-20-2023 Albumin [Mass/Vol] 3.2 g/dL Normal 3.2-5.0 [facility] Comment on above: Order Comment: [place] Performed By: #### L 501.5200, L501.2300, L100.0100, L500.2500 #### [facility] [address] [place], [address] Albumin/Globulin [Mass ratio] 0.9 {ratio} Normal 0.9-2.4 [facility] Comment on above: Order Comment: [place] Performed By: #### L 501.5200, L501.2300, L100.0100, L500.2500 #### [facility] [address] [place], [address] ALK P 73 U/L Normal 45-117 [facility] Comment on above: Order Comment: [place] Performed By: #### L 501.5200, L501.2300, L100.0100, L500.2500 #### [facility] [address] [place], [address] ALT [Catalytic activity/Vol] 44 U/L Normal 13-56 [facility] Comment on above: Order Comment: [place] Performed By: #### L 501.5200, L501.2300, L100.0100, L500.2500 #### [facility] [address] [place], [address] AST [Catalytic activity/Vol] 40 U/L High 15-37 [facility] Comment on above: Order Comment: [place] Performed By: #### L 501.5200, L501.2300, L100.0100, L500.2500 #### [facility] [address] [place], [address] Bilirubin [Mass/Vol] 0.60 mg/dL Normal 0.20-1.00 [facility] Comment on above: Order Comment: [place] Result Comment: For patients on eltrombopag therapy, use of Dimension [place] TBIL is not recommended. Performed By: #### L 501.5200, L501.2300, L100.0100, L500.2500 #### [facility] [address] [place], [address] BUN/CRE 7.1 RATIO Low 10-20 [facility] Comment on above: Order Comment: [place] Performed By: #### L 501.5200, L501.2300, L100.0100, L500.2500 #### [facility] [address] [place], [address] CA,Total 9.2 mg/dL Normal 8.5-10.1 [facility] Comment on above: Order Comment: [place] Performed By: #### L 501.5200, L501.2300, L100.0100, L500.2500 #### [facility] [address] [place], [address] Chloride [Moles/Vol] 105 mmol/L Normal 98-107 [facility] Comment on above: Order Comment: [place] Performed By: #### L 501.5200, L501.2300, L100.0100, L500.2500 #### [facility] [address] [place], [address] CO2 [Moles/Vol] 24.0 mmol/L Normal 21.0-32.0 [facility] Comment on above: Order Comment: [place] Performed By: #### L 501.5200, L501.2300, L100.0100, L500.2500 #### [facility] [address] [place], [address] Creatinine [Mass/Vol] 0.98 mg/dL Normal 0.55-1.02 [facility] Comment on above: Order Comment: [place] Result Comment: The validity of the calculated GFR GFRAA in patients over 70 years has not been determined. Clinical correlation is essential. Performed By: #### L 501.5200, L501.2300, L100.0100, L500.2500 #### [facility] [address] [place], [address] EST GFR - AA 76 mL/min Normal >60 [facility] Comment on above: Order Comment: [place] Result Comment: Afri can Egyptian GFR Calc Performed By: #### L 501.5200, L501.2300, L100.0100, L500.2500 #### [facility] [address] [place], [address] GAP 7 Normal 5-15 [facility] Comment on above: Order Comment: [place] Performed By: #### L 501.5200, L501.2300, L100.0100, L500.2500 #### [facility] [address] [place], [address] GFR/1.73 sq M.predicted among non-blacks MDRD (S/P/Bld) [Vol rate/Area] 63 mL/min/{1.73_m2} Normal >60 [facility] Comment on above: Order Comment: [place] Result Comment: Non- GFR Calc Performed By: #### L 501.5200, L501.2300, L100.0100, L500.2500 #### [facility] [address] [place], [address] Globulin (S) [Mass/Vol] 3.7 g/dL Normal 2.2-4.2 [facility] Comment on above: Order Comment: [place] Performed By: #### L 501.5200, L501.2300, L100.0100, L500.2500 #### [facility] [address] [place], [address] Glucose [Mass/Vol] 91 mg/dL Normal 74-106 [facility] Comment on above: Order Comment: [place] Performed By: #### L 501.5200, L501.2300, L100.0100, L500.2500 #### [facility] [address] [place], [address] Potassium [Moles/Vol] 3.6 mmol/L Normal 3.5-5.1 [facility] Comment on above: Order Comment: [place] Performed By: #### L 501.5200, L501.2300, L100.0100, L500.2500 #### [facility] [address] [place], [address] Sodium [Moles/Vol] 136 mmol/L Normal 136-145 [facility] Comment on above: Order Comment: [place] Performed By: #### L 501.5200, L501.2300, L100.0100, L500.2500 #### [facility] [address] [place], [address] T PROT 6.9 g/dL Normal 6.4-8.2 [facility] Comment on above: Order Comment: [place] Performed By: #### L 501.5200, L501.2300, L100.0100, L500.2500 #### [facility] [address] [place], [address] Urea nitrogen [Mass/Vol] 7 mg/dL Normal 7-18 [facility] Comment on above: Order Comment: [place] Performed By: #### L 501.5200, L501.2300, L100.0100, L500.2500 #### [facility] [address] [place], [address] Estradiolon 12-20-2023 ESTRADIOL 107.4 pg/mL Normal [facility] Comment on above: Order Comment: [place] Result Comment: NORM AL REFERENCE RANGES FEMALE FOLLICULAR 21.4 - 164.8 pg/mL MID-CYCLE PEAK 49.9 - 367.2 pg/mL LUTEAL 40.2 - 259.0 pg/mL POST-MENOPAUSAL ON MHT <11.0 - 462.1 pg/mL NOT ON MHT <11.0 - 58.3 pg/mL MALE <11.0 - 52.5 pg/mL NOTE: [employer] HAS CONFIRMED THE DRUG FULVETRANT (FASLODEX) MAY CAUSE FALSELY ELEVATED ESTRADIOL RESULTS WHEN USING THIS TEST METHOD. IF PATIENT IS TAKING FULVESTRANT AN ALTERNATIVE METHOD SHOULD BE USED TO DETERMINE ESTRADIOL CONCENTRATION. Performed By: #### L 501.5200, L501.2300, L100.0100, L500.2500 #### [facility] [address] [place], [address] Folates, (Folic Acid)on FOLATES 52.30 ng/mL Normal 3.1-55.4 [facility] Comment on above: Order Comment: [place] Performed By: #### L 501.5200, L501.2300, L100.0100, L500.2500 #### [facility] [address] [place], [address] Free T3on 12-20-2023 Free T3 [Mass/Vol] 1.8 pg/mL Low 2.18-3.98 [facility] Comment on above: Order Comment: [place] Performed By: #### L 501.5200, L501.2300, L100.0100, L500.2500 #### [facility] [address] [place], [address] Hemoglobin A1con 12-20-2023 HbA1c (Bld) [Mass fraction] 5.9 % High 3.8-5.6 [facility] Comment on above: Result Comment: Norm al < 5.7 % Prediabetic 5.7 - 6.4 % Diabetic >or= 6.5 % Please note range changes. Performed By: #### L 501.5200, L501.2300, L100.0100, L500.2500 #### [facility] [address] [place], [address] Lipid Profileon 12-20-2023 Cholesterol [Mass/Vol] 136 mg/dL Normal 200 [facility] Comment on above: Order Comment: [place] Result Comment: <200 mg/dL Desirable 200-240 mg/dL Borderline >240 mg/dL High Risk Performed By: #### L 501.5200, L501.2300, L100.0100, L500.2500 #### [facility] [address] [place], [address] Cholesterol in HDL [Mass/Vol] 54 mg/dL Normal [facility] Comment on above: Order Comment: [place] Result Comment: The drugs N-Acetylcysteine and Metamizole may falsely depress this assay. Reference Range HDL <40 mg/dL Low HDL Cholesterol HDL >or= 60 mg/dL High HDL Cholesterol Performed By: #### L 501.5200, L501.2300, L100.0100, L500.2500 #### [facility] [address] [place], [address] Cholesterol in LDL [Mass/Vol] 66 mg/dL Normal 0-130 [facility] Comment on above: Order Comment: [place] Performed By: #### L 501.5200, L501.2300, L100.0100, L500.2500 #### [facility] [address] [place], [address] Cholesterol in VLDL [Mass/Vol] 16 mg/dL Normal 5-40 [facility] Comment on above: Order Comment: [place] Performed By: #### L 501.5200, L501.2300, L100.0100, L500.2500 #### [facility] [address] [place], [address] Triglyceride [Mass/Vol] 81 mg/dL Normal [facility] Comment on above: Order Comment: [place] Result Comment: The drugs N-Acetylcysteine and Metamizole may falsely depress this assay. Serum Triglycerides Reference Interval Normal <150 mg/dL Borderline high 150 - 199 mg/dL High 200 - 499 mg/dL Very High > or = 500 mg/dL Performed By: #### L 501.5200, L501.2300, L100.0100, L500.2500 #### [facility] [address] [place], [address] T4 Free Directon 12-20-2023 T4 FREE DIRECT 1.49 ng/dL High 0.76-1.46 [facility] Comment on above: Order Comment: [place] Performed By: #### L 501.5200, L501.2300, L100.0100, L500.2500 #### [facility] [address] [place], [address] Testosterone, Serum Totalon 12-20-2023 Testosterone [Mass/Vol] 17.63 ng/dL Normal [facility] Comment on above: Result Comment: CENT RAL 90% REFERENCE RANGES MALE AGE <50 197.44 - 669.58 ng/dL MALE AGE > or = 50 187.72 - 684.19 ng/dL FEMALE AGE <50 8.38 - 35.01 ng/dL FEMALE AGE > or = 50 <7.00 - 35.92 ng/dL Effective as of 10/06/20 Performed By: #### L 501.5200, L501.2300, L100.0100, L500.2500 #### [facility] [address] [place], [address] Thyroid Stim Hormone (TSH)on 12-20-2023 TSH 1.090 uIU/mL Normal 0.358-3.740 [facility] Comment on above: Order Comment: [place] Performed By: #### L 501.5200, L501.2300, L100.0100, L500.2500 #### [facility] [address] [place], [address] Vitamin B12on 12-20-2023 Cobalamin (Vitamin B12) [Mass/Vol] pg/mL High 211-911 [facility] Comment on above: Performed By: #### L 501.5200, L501.2300, L100.0100, L500.2500 #### [facility] [address] [place], [address] Vitamin D,25 Hydroxyon 12-19 Vitamin D 25-OH 87.1 ng/mL Normal [facility] Comment on above: Result Comment: Tiffany min D 25(OH) Status Range Deficiency <20 ng/mL (50nmol/L) Insufficiency 20 - 30 ng/mL (50 - 75 nmol/L) Sufficiency 30 - 100 ng/mL (75 - 250 nmol/L) Toxicity >100 ng/mL (>250 nmol/L) Performed By: #### L 501.5200, L501.2300, L100.0100, L500.2500 #### [facility] [address] [place], [address] Basic Metabolic Profile (BMP )on 12-17-2023 BUN/CRE 11.7 RATIO Normal 10-20 [facility] Comment on above: Performed By: #### L 100.0100, L501.5200, L500.2500 #### [facility] [address] [place], [address] CA,Total 8.9 mg/dL Normal 8.5-10.1 [facility] Comment on above: Performed By: #### L 100.0100, L501.5200, L500.2500 #### [facility] [address] [place], [address] Chloride [Moles/Vol] 110 mmol/L High 98-107 [facility] Comment on above: Performed By: #### L 100.0100, L501.5200, L500.2500 #### [facility] [address] [place], [address] CO2 [Moles/Vol] 25.0 mmol/L Normal 21.0-32.0 [facility] Comment on above: Performed By: #### L 100.0100, L501.5200, L500.2500 #### [facility] [address] [place], [address] Creatinine [Mass/Vol] 1.03 mg/dL High 0.55-1.02 [facility] Comment on above: Result Comment: The validity of the calculated GFR GFRAA in patients over 70 years has not been determined. Clinical correlation is essential. Performed By: #### L 100.0100, L501.5200, L500.2500 #### [facility] [address] [place], [address] ECRCL 61.43 ml/min Normal [facility] Comment on above: Performed By: #### L 100.0100, L501.5200, L500.2500 #### [facility] [address] [place], [address] EST GFR - AA 72 mL/min Normal >60 [facility] Comment on above: Result Comment: Afri can Egyptian GFR Calc Performed By: #### L 100.0100, L501.5200, L500.2500 #### [facility] [address] [place], [address] GAP 4 Low 5-15 [facility] Comment on above: Performed By: #### L 100.0100, L501.5200, L500.2500 #### [facility] [address] [place], [address] GFR/1.73 sq M.predicted among non-blacks MDRD (S/P/Bld) [Vol rate/Area] 60 mL/min/{1.73_m2} Normal >60 [facility] Comment on above: Result Comment: Non- GFR Calc Performed By: #### L 100.0100, L501.5200, L500.2500 #### [facility] [address] [place], [address] Glucose [Mass/Vol] 106 mg/dL Normal 74-106 [facility] Comment on above: Result Comment: Fast ing Glucose result from 100 to 125 mg/dL suggests IMPAIRED HOMEOSTASIS per A.D.A. criteria. Performed By: #### L 100.0100, L501.5200, L500.2500 #### [facility] [address] [place], [address] Potassium [Moles/Vol] 3.2 mmol/L Low 3.5-5.1 [facility] Comment on above: Performed By: #### L 100.0100, L501.5200, L500.2500 #### [facility] [address] [place], [address] Sodium [Moles/Vol] 140 mmol/L Normal 136-145 [facility] Comment on above: Performed By: #### L 100.0100, L501.5200, L500.2500 #### [facility] [address] [place], [address] Urea nitrogen [Mass/Vol] 12 mg/dL Normal 7-18 [facility] Comment on above: Performed By: #### L 100.0100, L501.5200, L500.2500 #### [facility] [address] [place], [address] CBC W/Diff, Automatedon 10-0 6-2023 Absolute Lymph 0.97 X10 3/uL Normal 0.83-4.51 [facility] Comment on above: Performed By: #### L 100.0100, L501.5200, L500.2500 #### [facility] [address] [place], [address] Absolute Neut 4.4 X10 3/uL Normal 2.0-7.7 [facility] Comment on above: Performed By: #### L 100.0100, L501.5200, L500.2500 #### [facility] [address] [place], [address] Basophils/100 WBC (Bld) 1.0 % Normal 0-1 [facility] Comment on above: Performed By: #### L 100.0100, L501.5200, L500.2500 #### [facility] [address] [place], [address] Eosinophils/100 WBC (Bld) 2.2 % Normal 0-5 [facility] Comment on above: Performed By: #### L 100.0100, L501.5200, L500.2500 #### [facility] [address] [place], [address] Erythrocyte distribution width (RBC) [Ratio] 12.6 % Normal 11.6-14.6 [facility] Comment on above: Performed By: #### L 100.0100, L501.5200, L500.2500 #### [facility] [address] [place], [address] Hematocrit (Bld) [Volume fraction] 39.2 % Normal 37-47 [facility] Comment on above: Performed By: #### L 100.0100, L501.5200, L500.2500 #### [facility] [address] [place], [address] Hemoglobin (Bld) [Mass/Vol] 12.9 g/dL Normal 12.0-15.0 [facility] Comment on above: Performed By: #### L 100.0100, L501.5200, L500.2500 #### [facility] [address] [place], [address] IG% 1.500 High 0.0-0.9 [facility] Comment on above: Result Comment: IG% - Immature Granulocytes (promyelocytes, myelocytes and metamyelocytes) > 1% indicates that a LEFT SHIFT is Present. Performed By: #### L 100.0100, L501.5200, L500.2500 #### [facility] [address] [place], [address] Lymphocytes/100 WBC (Bld) 14.3 % Low 19-41 [facility] Comment on above: Performed By: #### L 100.0100, L501.5200, L500.2500 #### [facility] [address] [place], [address] MCH (RBC) [Entitic mass] 30.5 pg Normal 27.0-32.0 [facility] Comment on above: Performed By: #### L 100.0100, L501.5200, L500.2500 #### [facility] [address] [place], [address] MCHC (RBC) [Mass/Vol] 32.9 g/dL Normal 32-36 [facility] Comment on above: Performed By: #### L 100.0100, L501.5200, L500.2500 #### [facility] [address] [place], [address] MCV (RBC) [Entitic vol] 92.7 fL Normal 81-99 [facility] Comment on above: Performed By: #### L 100.0100, L501.5200, L500.2500 #### [facility] [address] [place], [address] Monocytes/100 WBC (Bld) 16.4 % High 0-10 [facility] Comment on above: Performed By: #### L 100.0100, L501.5200, L500.2500 #### [facility] [address] [place], [address] Neutrophils/100 WBC (Bld) 64.6 % Normal 47-70 [facility] Comment on above: Performed By: #### L 100.0100, L501.5200, L500.2500 #### [facility] [address] [place], [address] Nucleated RBC (Bld) [#/Vol] 0 10*3/uL Normal 0-5 [facility] Comment on above: Performed By: #### L 100.0100, L501.5200, L500.2500 #### [facility] [address] [place], [address] Platelet mean volume (Bld) [Entitic vol] 10.0 fL Normal 6.2-12.0 [facility] Comment on above: Performed By: #### L 100.0100, L501.5200, L500.2500 #### [facility] [address] [place], [address] Platelets (Bld) [#/Vol] 243 10*3/uL Normal 150-450 [facility] Comment on above: Performed By: #### L 100.0100, L501.5200, L500.2500 #### [facility] [address] [place], [address] RBC (Bld) [#/Vol] 4.23 10*6/uL Normal 4.2-5.4 [facility] Comment on above: Performed By: #### L 100.0100, L501.5200, L500.2500 #### [facility] [address] [place], [address] RDW SD 43.0 fl Normal 35.1-43.9 [facility] Comment on above: Performed By: #### L 100.0100, L501.5200, L500.2500 #### [facility] [address] [place], [address] WBC (Bld) [#/Vol] 6.8 10*3/uL Normal 4.4-11.0 [facility] Comment on above: Performed By: #### L 100.0100, L501.5200, L500.2500 #### [facility] [address] [place], [address] Discharge Instructionon -0 Discharge Instruction [facility] Medical Records Department [address] [place] [address] Instructions for Home/Discharge Instructions 12/17/23917 MR#: [id number] Acct: [id number] Name: MARÍA REAL Rep #: [id number] : 1970 53 From: Abdias Pereira MD PCP: FILIBERTO Gurrola Status:ADM IN Discharge Instructions Diet Discharge Diet: Light diet - advance as tolerated Activity Weight Bearing Status: Weight bearing as tolerated Dressing / Incision Call your doctor if you observe: Fever of 101 or Higher, Coldness, Increased Pain, Numbness or Tingling, Change in Color, Inability to urinate, Inability to have a bowel movement, Shortness of breath, Dizziness, Fainting spells, Swelling in the ankles, Chest pain, Prolonged hiccupping, Increased palpitations (irregular heartbeat) and Calf discomfort Follow Up Care Test Results: Test results from this visit will be discussed in further detail at your follow-up appointment, if applicable. Discharge Plan Admission Admit Date/Time: 12/14/23 14:54 Primary Reason for Your Visit: Salmonella gastroenteritis Attending Provider: Abdias Pereira Primary Care Provider: Claire Lu NP Consulting Providers: Mehul Granados Instructions Additional Instructions / Restrictions: Advised BMP, magnesium and phosphorus in 3 days and follow with PCP Advised home isolation for 1 more week Discharge Orders/Prescriptions Prescriptions: New ciprofloxacin HCl [Cipro] 500 mg tablet 500 mg PO BID 5 Days Qty: 10 0RF potassium phosphate, monobasic 500 mg tablet,soluble 500 mg PO BID 7 Days Qty: 14 0RF magnesium oxide 400 mg magnesium tablet 400 mg PO BID 5 Days Qty: 10 0RF Rx Instructions: Follow-up set of magnesium after 4 days Continued vitamin B complex 1 EACH capsule 1 ea PO DAILY cholecalciferol (vitamin D3) [Vitamin D3] 1,000 UNIT capsule 1,000 unit PO DAILY Multipak 1 pkg PO DAILY L.acidoph, paracasei,B. lactis 1 EACH capsule 1 ea PO DAILY levothyroxine 125 mcg tablet 125 mcg PO DAILY bupropion HCl 150 mg tablet extended release 24 hr 150 mg PO DAILY Referrals / Follow Up: Claire uL SHIFT MGR, SHIFT MGR-C [Primary Care Provider] - Within 1 Week (To follow-up BMP magnesium and phosphorus) Disposition Disposition (needs filled in before D/C Order can be placed): Home, Self Care 12/17/23922 Abdias Pereira MD CC: SHIFT MGR-C Claire uL; Dr. Mehul Granados DO Signed Normal [facility] Magnesiumon 12-17-2023 Magnesium [Mass/Vol] 2.0 mg/dL Normal 1.6-2.6 [facility] Comment on above: Performed By: #### L 501.5200, L501.2300, L100.0100, L500.2500 #### [facility] [address] [place], [address] Phosphoruson 12-17-2023 Phosphate [Mass/Vol] 2.2 mg/dL Low 2.5-4.9 [facility] Comment on above: Performed By: #### L 500.2500 #### [facility] [address] [place], [address] Basic Metabolic Profile (BMP )on 12-16-2023 BUN/CRE 20.5 RATIO High 12-30 [facility] Comment on above: Performed By: #### L 501.5200, L501.2300, L100.0100, L500.2500 #### [facility] [address] [place], [address] CA,Total 8.6 mg/dL Normal 8.5-10.1 [facility] Comment on above: Performed By: #### L 501.5200, L501.2300, L100.0100, L500.2500 #### [facility] [address] [place], [address] Chloride [Moles/Vol] 108 mmol/L High 98-107 [facility] Comment on above: Performed By: #### L 501.5200, L501.2300, L100.0100, L500.2500 #### [facility] [address] [place], [address] CO2 [Moles/Vol] 24.0 mmol/L Normal 21.0-32.0 [facility] Comment on above: Performed By: #### L 501.5200, L501.2300, L100.0100, L500.2500 #### [facility] [address] [place], [address] Creatinine [Mass/Vol] 1.32 mg/dL High 0.55-1.02 [facility] Comment on above: Result Comment: The validity of the calculated GFR GFRAA in patients over 70 years has not been determined. Clinical correlation is essential. Performed By: #### L 501.5200, L501.2300, L100.0100, L500.2500 #### [facility] [address] [place], [address] ECRCL 47.93 ml/min Normal [facility] Comment on above: Performed By: #### L 501.5200, L501.2300, L100.0100, L500.2500 #### [facility] [address] [place], [address] EST GFR - AA 54 mL/min Low >60 [facility] Comment on above: Result Comment: Afri can Egyptian GFR Calc Performed By: #### L 501.5200, L501.2300, L100.0100, L500.2500 #### [facility] [address] [place], [address] GAP 4 Low 5-15 [facility] Comment on above: Performed By: #### L 501.5200, L501.2300, L100.0100, L500.2500 #### [facility] [address] [place], [address] GFR/1.73 sq M.predicted among non-blacks MDRD (S/P/Bld) [Vol rate/Area] 45 mL/min/{1.73_m2} Low >60 [facility] Comment on above: Result Comment: Non- GFR Calc Performed By: #### L 501.5200, L501.2300, L100.0100, L500.2500 #### [facility] [address] [place], [address] Glucose [Mass/Vol] 111 mg/dL High 74-106 [facility] Comment on above: Result Comment: Fast ing Glucose result from 100 to 125 mg/dL suggests IMPAIRED HOMEOSTASIS per A.D.A. criteria. Performed By: #### L 501.5200, L501.2300, L100.0100, L500.2500 #### [facility] [address] [place], [address] Potassium [Moles/Vol] 2.8 mmol/L Low 3.5-5.1 [facility] Comment on above: Result Comment: Crit ical Result(s) Called at: 07:25:29 12/16/2023 by: MARISA MARTINEZ to Roz Howard. Results read back by same. Performed By: #### L 501.5200, L501.2300, L100.0100, L500.2500 #### [facility] [address] [place], [address] Sodium [Moles/Vol] 136 mmol/L Normal 136-145 [facility] Comment on above: Performed By: #### L 501.5200, L501.2300, L100.0100, L500.2500 #### [facility] [address] [place], [address] Urea nitrogen [Mass/Vol] 27 mg/dL High 7-18 [facility] Comment on above: Performed By: #### L 501.5200, L501.2300, L100.0100, L500.2500 #### [facility] [address] [place], [address] CBC W/Diff, Automatedon 10-0 PLT EST ADEQUATE Normal ADEQ [facility] Comment on above: Performed By: #### L 501.5200, L501.2300, L100.0100, L500.2500 #### [facility] [address] [place], [address] RED CELL MORPH NORM C+C Normal NORM C C [facility] Comment on above: Performed By: #### L 501.5200, L501.2300, L100.0100, L500.2500 #### [facility] [address] [place], [address] SMEAR COMMENT SCANNED Normal [facility] Comment on above: Performed By: #### L 501.5200, L501.2300, L100.0100, L500.2500 #### [facility] [address] [place], [address] Creatinine, Urineon 12-16-19 24 URINE CREAT 163.00 mg/dL Normal NO RANGE EST. [facility] Comment on above: Order Comment: SENT LABEL TO MS3 TO COLLECT Performed By: #### L 501.5200, L501.2300, L100.0100, L500.2500 #### [facility] [address] [place], [address] Discharge Instructionon Discharge Instruction [facility] Medical Records Department [address] [place] [address] Instructions for Home/Discharge Instructions 12/16/23 1013 MR#: [id number] Acct: [id number] Name: MARÍA REAL Rep #: [id number] : 1970 53 From: Abdias Pereira MD PCP: FILIBERTO Gurrola Status:ADM IN Discharge Instructions Diet Discharge Diet: No restrictions Activity Discharge Activity: Return to Normal Activity Weight Bearing Status: Weight bearing as tolerated Dressing / Incision Call your doctor if you observe: Fever of 101 or Higher, Coldness, Increased Pain, Numbness or Tingling, Change in Color, Inability to urinate, Inability to have a bowel movement, Shortness of breath, Dizziness, Fainting spells, Swelling in the ankles, Chest pain, Prolonged hiccupping, Increased palpitations (irregular heartbeat) and Calf discomfort Follow Up Care When: IN 2 WEEKS Test Results: Test results from this visit will be discussed in further detail at your follow-up appointment, if applicable. Discharge Plan Admission Admit Date/Time: 12/14/23 14:54 Primary Reason for Your Visit: Salmonella gastroenteritis Attending Provider: Abdias Pereira Primary Care Provider: Michener,Claire K SHIFT MGR Consulting Providers: Mosteller,Mehul Instructions Additional Instructions / Restrictions: Advised BMP, magnesium and phosphorus in 3 days and follow with PC Discharge Orders/Prescriptions Prescriptions: New ciprofloxacin HCl [Cipro] 500 mg tablet 500 mg PO BID 5 Days Qty: 10 0RF potassium chloride 20 mEq tablet extended release 40 meq PO DAILY 5 Days Qty: 10 0RF Continued vitamin B complex 1 EACH capsule 1 ea PO DAILY cholecalciferol (vitamin D3) [Vitamin D3] 1,000 UNIT capsule 1,000 unit PO DAILY Multipak 1 pkg PO DAILY L.acidoph, paracasei,B. lactis 1 EACH capsule 1 ea PO DAILY levothyroxine 125 mcg tablet 125 mcg PO DAILY bupropion HCl 150 mg tablet extended release 24 hr 150 mg PO DAILY Referrals / Follow Up: Claire Lu NP, SHIFT MGR-C [Primary Care Provider] - Within 1 Week (To follow-up BMP) Disposition Disposition (needs filled in before D/C Order can be placed): Home, Self Care 12/16/23 1230 Abdias Pereira MD CC: SHIFT MGR-C Claire Lu; Dr. Mehul Granados, Signed Normal [facility] Magnesiumon 12-16-2023 Magnesium [Mass/Vol] 2.0 mg/dL Normal 1.6-2.6 [facility] Comment on above: Order Comment: Comme nts: after IV electroltye replacementANN RN CALLED AT 0925, SHE WILL CALL WHEN INFUSION ISCOMPLETE, SHES NOT SURE IT WILL BE DONE AT THIS TIME. PLEASEWAIT FOR HER CALL TO DRAW. Performed By: #### L 501.5200, L501.2300, L100.0100, L500.2500 #### [facility] [address] [place], [address] Magnesium [Mass/Vol] 2.2 mg/dL Normal 1.6-2.6 [facility] Comment on above: Performed By: #### L 501.5200, L501.2300, L100.0100, L500.2500 #### [facility] [address] [place], [address] Phosphoruson 12-16-2023 Phosphate [Mass/Vol] 2.0 mg/dL Low 2.5-4.9 [facility] Comment on above: Order Comment: Comme nts: after IV electroltye replacementANN RN CALLED AT 0925, SHE WILL CALL WHEN INFUSION ISCOMPLETE, SHES NOT SURE IT WILL BE DONE AT THIS TIME. PLEASEWAIT FOR HER CALL TO DRAW. Performed By: #### L 501.5200, L501.2300, L100.0100, L500.2500 #### [facility] [address] [place], [address] Phosphate [Mass/Vol] 1.8 mg/dL Low 2.5-4.9 [facility] Comment on above: Performed By: #### L 501.5200, L501.2300, L100.0100, L500.2500 #### [facility] [address] [place], [address] Potassiumon 12-16-2023 Potassium [Moles/Vol] 2.4 mmol/L Invalid Interpretation Code 3.5-5.1 [facility] Comment on above: Order Comment: Comme nts: After completion of potassium phosphate IVANN RN CALLED AT 0925, SHE WILL CALL WHEN INFUSION ISCOMPLETE, SHES NOT SURE IT WILL BE DONE AT THIS TIME. PLEASEWAIT FOR HER CALL TO DRAW. Result Comment: Crit ical Result(s) Called at: 17:11:50 12/16/2023 by: OZIEL CHERY TO NNAMDI SINGLETON. Results read back by same. Performed By: #### L 501.5200, L501.2300, L100.0100, L500.2500 #### [facility] [address] [place], [address] Urine Sodiumon 12-16-2023 Sodium (U) [Moles/Vol] 6 mmol/L Normal Not Establ. [facility] Comment on above: Order Comment: SENT LABEL TO MS3 TO COLLECT Performed By: #### L 501.5200, L501.2300, L100.0100, L500.2500 #### [facility] [address] [place], [address] Basic Metabolic Profile (BMP )on 12-15-2023 BUN/CRE 23.3 RATIO High 10-20 [facility] Comment on above: Performed By: #### L 500.2500 #### [facility] [address] [place], [address] CA,Total 9.2 mg/dL Normal 8.5-10.1 [facility] Comment on above: Performed By: #### L 500.2500 #### [facility] [address] [place], [address] Chloride [Moles/Vol] 106 mmol/L Normal 98-107 [facility] Comment on above: Performed By: #### L 500.2500 #### [facility] [address] [place], [address] CO2 [Moles/Vol] 24.0 mmol/L Normal 21.0-32.0 [facility] Comment on above: Performed By: #### L 500.2500 #### [facility] [address] [place], [address] Creatinine [Mass/Vol] 1.76 mg/dL High 0.55-1.02 [facility] Comment on above: Result Comment: The validity of the calculated GFR GFRAA in patients over 70 years has not been determined. Clinical correlation is essential. Performed By: #### L 500.2500 #### [facility] [address] [place], [address] ECRCL 35.95 ml/min Normal [facility] Comment on above: Performed By: #### L 500.2500 #### [facility] [address] [place], [address] EST GFR - AA 39 mL/min Low >60 [facility] Comment on above: Result Comment: Afri can Egyptian GFR Calc Performed By: #### L 500.2500 #### [facility] [address] [place], [address] GAP 4 Low 5-15 [facility] Comment on above: Performed By: #### L 500.2500 #### [facility] [address] [place], [address] GFR/1.73 sq M.predicted among non-blacks MDRD (S/P/Bld) [Vol rate/Area] 32 mL/min/{1.73_m2} Low >60 [facility] Comment on above: Result Comment: Non- GFR Calc Performed By: #### L 500.2500 #### [facility] [address] [place], [address] Glucose [Mass/Vol] 133 mg/dL High 74-106 [facility] Comment on above: Result Comment: Fast ing Glucose result greater than or equal to 126 mg/dL suggests DIABETES MELLITUS per A.D.A. criteria. Performed By: #### L 500.2500 #### [facility] [address] [place], [address] Potassium [Moles/Vol] 2.8 mmol/L Low 3.5-5.1 [facility] Comment on above: Performed By: #### L 500.2500 #### [facility] [address] [place], [address] Sodium [Moles/Vol] 134 mmol/L Low 136-145 [facility] Comment on above: Performed By: #### L 500.2500 #### [facility] [address] [place], [address] Urea nitrogen [Mass/Vol] 41 mg/dL High 7-18 [facility] Comment on above: Performed By: #### L 500.2500 #### [facility] [address] [place], [address] BUN/CRE 20.6 RATIO High 10-20 [facility] Comment on above: Performed By: #### L 500.2500, L100.0500 #### [facility] [address] [place], [address] CA,Total 9.1 mg/dL Normal 8.5-10.1 [facility] Comment on above: Performed By: #### L 500.2500, L100.0500 #### [facility] [address] [place], [address] Chloride [Moles/Vol] 105 mmol/L Normal 98-107 [facility] Comment on above: Performed By: #### L 500.2500, L100.0500 #### [facility] [address] [place], [address] CO2 [Moles/Vol] 23.0 mmol/L Normal 21.0-32.0 [facility] Comment on above: Performed By: #### L 500.2500, L100.0500 #### [facility] [address] [place], [address] Creatinine [Mass/Vol] 2.23 mg/dL High 0.55-1.02 [facility] Comment on above: Result Comment: The validity of the calculated GFR GFRAA in patients over 70 years has not been determined. Clinical correlation is essential. Performed By: #### L 500.2500, L100.0500 #### [facility] [address] [place], [address] ECRCL 28.37 ml/min Normal [facility] Comment on above: Performed By: #### L 500.2500, L100.0500 #### [facility] [address] [place], [address] EST GFR - AA 30 mL/min Low >60 [facility] Comment on above: Result Comment: Afri can Egyptian GFR Calc Performed By: #### L 500.2500, L100.0500 #### [facility] [address] [place], [address] GAP 5 Normal 5-15 [facility] Comment on above: Performed By: #### L 500.2500, L100.0500 #### [facility] [address] [place], [address] GFR/1.73 sq M.predicted among non-blacks MDRD (S/P/Bld) [Vol rate/Area] 24 mL/min/{1.73_m2} Low >60 [facility] Comment on above: Result Comment: Non- GFR Calc Performed By: #### L 500.2500, L100.0500 #### [facility] [address] [place], [address] Glucose [Mass/Vol] 153 mg/dL High 74-106 [facility] Comment on above: Result Comment: Fast ing Glucose result greater than or equal to 126 mg/dL suggests DIABETES MELLITUS per A.D.A. criteria. Performed By: #### L 500.2500, L100.0500 #### [facility] [address] [place], [address] Potassium [Moles/Vol] 2.5 mmol/L Invalid Interpretation Code 3.5-5.1 [facility] Comment on above: Result Comment: Crit ical Result(s) Called at: 07:45:53 12/15/2023 by: Franklin Jordan RN (MS3). Results read back by same. Performed By: #### L 500.2500, L100.0500 #### [facility] [address] [place], [address] Sodium [Moles/Vol] 133 mmol/L Low 136-145 [facility] Comment on above: Performed By: #### L 500.2500, L100.0500 #### [facility] [address] [place], [address] Urea nitrogen [Mass/Vol] 46 mg/dL High 7-18 [facility] Comment on above: Performed By: #### L 500.2500, L100.0500 #### [facility] [address] [place], [address] CBC-Complete Blood Cnt No Di ffon 12-15-2023 Erythrocyte distribution width (RBC) [Ratio] 12.9 % Normal 11.6-14.6 [facility] Comment on above: Performed By: #### L 500.2500, L100.0500 #### [facility] [address] [place], [address] Hematocrit (Bld) [Volume fraction] 44.8 % Normal 37-47 [facility] Comment on above: Performed By: #### L 500.2500, L100.0500 #### [facility] [address] [place], [address] Hemoglobin (Bld) [Mass/Vol] 14.7 g/dL Normal 12.0-15.0 [facility] Comment on above: Performed By: #### L 500.2500, L100.0500 #### [facility] [address] [place], [address] MCH (RBC) [Entitic mass] 30.2 pg Normal 27.0-32.0 [facility] Comment on above: Performed By: #### L 500.2500, L100.0500 #### [facility] [address] [place], [address] MCHC (RBC) [Mass/Vol] 32.8 g/dL Normal 32-36 [facility] Comment on above: Performed By: #### L 500.2500, L100.0500 #### [facility] [address] [place], [address] MCV (RBC) [Entitic vol] 92.2 fL Normal 81-99 [facility] Comment on above: Performed By: #### L 500.2500, L100.0500 #### [facility] [address] [place], [address] Platelet mean volume (Bld) [Entitic vol] 10.3 fL Normal 6.2-12.0 [facility] Comment on above: Performed By: #### L 500.2500, L100.0500 #### [facility] [address] [place], [address] Platelets (Bld) [#/Vol] 250 10*3/uL Normal 150-450 [facility] Comment on above: Performed By: #### L 500.2500, L100.0500 #### [facility] [address] [place], [address] RBC (Bld) [#/Vol] 4.86 10*6/uL Normal 4.2-5.4 [facility] Comment on above: Performed By: #### L 500.2500, L100.0500 #### [facility] [address] [place], [address] RDW SD 43.8 fl Normal 35.1-43.9 [facility] Comment on above: Performed By: #### L 500.2500, L100.0500 #### [facility] [address] [place], [address] WBC (Bld) [#/Vol] 7.8 10*3/uL Normal 4.4-11.0 [facility] Comment on above: Performed By: #### L 500.2500, L100.0500 #### [facility] [address] [place], [address] Abdomen/Pelvis without Conto n 12-14-2023 Abdomen/Pelvis without Cont [facility] [address] [place] [address] Abdomen/Pelvis without Cont MR#: [id number] Acct: [id number] Name: MARÍA REAL Rep #: [id number] : 1970 F 53 From: Solitario chávez MD PCP: Claire Lu NP-C Status: ADM IN Study: Abdomen/Pelvis without Cont Date of Exam: 06/03 Exam# [id number] Ordering Dr: Mehul Granados DO [id number] INDICATION: abd pain w/ n/v/d EXAMINATION: CT Abdomen And Pelvis W/O Contrast Injection TECHNIQUE: Helically acquired images were obtained of the abdomen and pelvis without the use of IV contrast. A radiation dose optimization technique was used for this scan. Oral contrast: None. COMPARISON: None FINDINGS: Evaluation of the solid organs and vascular structures is limited without intravenous contrast. Visualized lung bases: Unremarkable Liver: Unremarkable Gallbladder: Surgically absent. Spleen: Unremarkable Pancreas: Unremarkable Adrenal Glands: Unremarkable Kidneys: Unremarkable Vasculature: Mild scattered aortoiliac atherosclerotic calcifications. GI Tract: Unremarkable Lymphadenopathy: None Peritoneum: No ascites. Bladder: Unremarkable Reproductive organs: Unremarkable Bones/Soft tissues: No suspicious osseous or soft tissue lesions CT/Abdomen/Pelvis without Cont IMPRESSION: No acute abnormalities in the abdomen or pelvis. Electronically Signed: Solitario Whiting MD at 17:12 EDT , CC: SHIFT MGR-C Claire Lu; Dr. 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 Performed By: #### L 500.2500 #### [facility] [address] [place], [place], [address] CDIFF (PCR)on 12-14-2023 CDIFF Is the patient receiving laxatives? N New/unexplained onset of 3 or more stools in past 24 hrs? Y Stool collected and submitted to lab on 12/14/23 at 1731 Pending [phone] NAP1-B1 Presumptive Negative *for epidemiolologic???us e C. Diff PCR Negative- No toxigenic C. Diff Detected Normal [facility] Comment on above: Performed By: #### L 501.5200, L501.2300, L100.0100, L500.2500 #### [facility] [address] [place], [address] Comprehensive Metabolic Prof ilon 12-14-2023 Albumin [Mass/Vol] 4.1 g/dL Normal 3.2-5.0 [facility] Comment on above: Performed By: #### L 500.2500 #### [facility] [address] [place], [address] Albumin/Globulin [Mass ratio] 0.8 {ratio} Low 0.9-2.4 [facility] Comment on above: Performed By: #### L 500.2500 #### [facility] [address] [place], [address] ALK P 91 U/L Normal 45-117 [facility] Comment on above: Performed By: #### L 500.2500 #### [facility] [address] [place], [address] ALT [Catalytic activity/Vol] 36 U/L Normal 13-56 [facility] Comment on above: Performed By: #### L 500.2500 #### [facility] [address] [place], [address] AST [Catalytic activity/Vol] 22 U/L Normal 15-37 [facility] Comment on above: Performed By: #### L 500.2500 #### [facility] [address] [place], [address] Bilirubin [Mass/Vol] 0.60 mg/dL Normal 0.20-1.00 [facility] Comment on above: Result Comment: For patients on eltrombopag therapy, use of Dimension [place] TBIL is not recommended. Performed By: #### L 500.2500 #### [facility] [address] [place], [address] BUN/CRE 13.9 RATIO Normal 10-20 [facility] Comment on above: Performed By: #### L 500.2500 #### [facility] [address] [place], [address] CA,Total 9.9 mg/dL Normal 8.5-10.1 [facility] Comment on above: Performed By: #### L 500.2500 #### [facility] [address] [place], [address] Chloride [Moles/Vol] 98 mmol/L Normal 98-107 [facility] Comment on above: Performed By: #### L 500.2500 #### [facility] [address] [place], [address] CO2 [Moles/Vol] 28.0 mmol/L Normal 21.0-32.0 [facility] Comment on above: Performed By: #### L 500.2500 #### [facility] [address] [place], [address] Creatinine [Mass/Vol] 3.23 mg/dL High 0.55-1.02 [facility] Comment on above: Result Comment: The validity of the calculated GFR GFRAA in patients over 70 years has not been determined. Clinical correlation is essential. Performed By: #### L 500.2500 #### [facility] [address] [place], [address] ECRCL 19.59 ml/min [facility] Comment on above: Performed By: #### L 500.2500 #### [facility] [address] [place], [address] EST GFR - AA 19 mL/min Low >60 [facility] Comment on above: Result Comment: Afri can Egyptian GFR Calc Performed By: #### L 500.2500 #### [facility] [address] [place], [address] GAP 7 Normal 5-15 [facility] Comment on above: Performed By: #### L 500.2500 #### [facility] [address] [place], [address] GFR/1.73 sq M.predicted among non-blacks MDRD (S/P/Bld) [Vol rate/Area] 16 mL/min/{1.73_m2} Low >60 [facility] Comment on above: Result Comment: Non- GFR Calc Performed By: #### L 500.2500 #### [facility] [address] [place], [address] Globulin (S) [Mass/Vol] 5.0 g/dL High 2.2-4.2 [facility] Comment on above: Performed By: #### L 500.2500 #### [facility] [address] [place], [address] Glucose [Mass/Vol] 199 mg/dL High 74-106 [facility] Comment on above: Result Comment: Fast ing Glucose result greater than or equal to 126 mg/dL suggests DIABETES MELLITUS per A.D.A. criteria. Performed By: #### L 500.2500 #### [facility] [address] [place], [address] Potassium [Moles/Vol] 3.2 mmol/L Low 3.5-5.1 [facility] Comment on above: Performed By: #### L 500.2500 #### [facility] [address] [place], [address] Sodium [Moles/Vol] 133 mmol/L Low 136-145 [facility] Comment on above: Performed By: #### L 500.2500 #### [facility] [address] [place], [address] T PROT 9.1 g/dL High 6.4-8.2 [facility] Comment on above: Performed By: #### L 500.2500 #### [facility] [address] [place], [address] Urea nitrogen [Mass/Vol] 45 mg/dL High 7-18 [facility] Comment on above: Performed By: #### L 500.2500 #### [facility] [address] [place], [address] ENTERIC PATHOGEN PANEL STOOL on 12-14-2023 EP PANEL Is the patient receiving laxatives? N New/unexplained onset of 3 or more stools in past 24 hrs? Y Stool collected and submitted to lab on 12/14/23 at 1731 Normal Reference Range = Not Detected Nucleic acid amplification test method GI pathogens Pnl Stl RAVINDER+probe RESULTS CALLED TO PRISCILLA FONSECA 12/14/232026 Jazmyne Wood. REPORT READ BACK BY . SAME GI pathogens Pnl Stl RAVINDER+probe Copy of report sent to Infection Control Printer [id number] 12/14/232027 MYRON. GI pathogens Pnl Stl RAVINDER+probe Salmonella species detected. Susceptibility testing not routinely performed but can be completed at the request by the ordering physician. Treatment is often not needed in many cases. This is an amplified DNA test which makes it both specific and sensitive. GI pathogens Pnl Stl RAVINDER+probe [facility] REPORT IDENTIFICATION SALMONELLA LEAH GI pathogens Pnl Stl RAVINDER+probe Test comment: Serogrouping was performed for epidemiological purposes only; it has not been cleared or approved by the FDA. The test results must not be used for the assessment, diagnosis or treatment of patients. GI pathogens Pnl Stl RAVINDER+probe TESTING PERFORMED AT [facility]. ORIGINAL REPORT ON FILE IN LAB CONTAINS ADDITIONAL TEST SITE INFORMATION. CAMPYLOBACTER Not Detected Norovirus Not Detected Rotavirus Not Detected Salmonella A Salmonella sp. Detected A Shiga Toxin Not Detected Shigella sp. Not Detected VIBRIO Not Detected Yersinia Not Detected Salmonella Sp. * This is an amended result. * A prior result that was reported as final has been changed. 12/15/23 0718 by GAMALIEL * This is an amended result. * A prior result that was reported as final has been changed. 01/02/24 1202 by ALDO [facility] Comment on above: Performed By: #### L 501.5200, L501.2300, L100.0100, L500.2500 #### [facility] [address] [facility] [place], [address] Emergency Department Summary on 12-14-2023 Emergency Department Summary [facility] Medical Records Department [address] [place] [address] Emergency Department Summary 12/14/23 MR#: [id number] Acct: [id number] Name: MARÍA REAL Rep #: [id number] : 1970 53 From: Ronnie Garcia DO PCP: FILIBERTO Gurrola Status:ADM IN Location: [place] [address] HPI History of Present Illness Chief Complaint: Nausea/Vomiting/Diar kayleigh Informant: patient and spouse/S.O. Onset/Context/Timing Onset: Yesterday Context: Gradual Onset Timing: Continuous Quality: Cramping Location: Diffuse Worsened by: Nothing Relieved by: Vomiting Narrative Narrative: Patient presents with nausea, vomiting, and diarrhea that began early yesterday morning. Patient states she has been unable to keep anything down since yesterday. Patient states her diarrhea has been watery and yellow. Patient admits to diffuse cramping abdominal pain. Patient denies any hematemesis or coffee-ground emesis. Patient denies any melena or hematochezia. Patient denies any urinary complaints. Patient admits to a fever up to 101.5 at home. [facility] Medical History (Updated 12/14/23 @ 14:[address] Ronnie Garcia DO) Vision problem Hypothyroidism High cholesterol Chronic headaches Carpal tunnel syndrome Back problem Anxiety and depression Home Medications ???Medication ???Instructions ???Recorded ???Last Taken ???Type Multipak 1 pkg PO DAILY supplement 01/18/18 05/24/19 History cholecalciferol (vitamin D3) 25 1,000 unit PO DAILY vitamin 01/18/18 05/24/19 History mcg (1,000 unit) capsule (Vitamin D3) vitamin B complex 1 ea PO DAILY supplement 01/18/18 05/24/19 History L.acidoph, paracasei,B. lactis 10 1 ea PO DAILY probiotic 03/12/18 05/24/19 History billion cell capsule bupropion HCl 150 mg 24 hr tablet, 150 mg PO DAILY 12/14/23 12/13/23 History extended release levothyroxine 125 mcg tablet 125 mcg PO DAILY 12/14/23 12/14/23 History Allergy/AdvReac Type Severity Reaction Status Date / Time No Known Allergies Allergy Verified 12/14/23 11:12 Family History Mother Diabetes Sister Diabetes Surgical History S/P endometrial ablation H/O hysterectomy for benign disease H/O thyroidectomy Plantar fasciitis, bilateral Social History Smoking Status: Never smoker second hand exposure: No alcohol intake: never substance use type: does not use ROS ROS ED Constitutional Constitutional ED: Reports fever(s); Denies chills Eyes Eyes: Denies blurry vision or change in vision ENT ENT ED: Denies rhinorrhea or sore throat Cardiovascular Cardiovascular: Denies chest pain or palpitations Respiratory/Chest Respiratory/Chest: Denies cough or dyspnea Gastrointestinal Gastrointestinal: Reports abdominal pain, diarrhea, nausea and vomiting; Denies melena Genitourinary Genitourinary ED: Denies dysuria or hematuria Musculoskeletal Musculoskeletal: Denies back pain or neck pain Integumentary Denies abscess or rash Neurologic Neurologic: Denies headache(s) or weakness Allergic/Immunologic Allergic/Immunologic ED: Denies mouth swelling or urticaria EXAM Physical Exam Const Vital Signs: 12/14/23 11:12 12/14/23 13:11 12/14/23 13:56 Temperature 97.8 F Temperature Source Temporal Pulse Rate 108 H 94 Pulse Rate [Lying] 90 Pulse Rate [Sitting (for 1 minute prior to obtaining)] 100 Pulse Rate [Standing (for 1 minute prior to obtaining)] 112 H Respiratory Rate 16 18 Blood Pressure 166/90 H 115/77 Blood Pressure [Lying] 110/72 Blood Pressure [Sitting (for 1 minute prior to obtaining)] 104/66 Blood Pressure [Standing (for 1 minute prior to obtaining)] 114/100 H Blood Pressure Mean 115 89 Blood Pressure Mean [Lying] 84 Blood Pressure Mean [Sitting (for 1 minute prior to obtaining)] 78 Blood Pressure Mean [Standing (for 1 minute prior to obtaining)] 104 Pulse Ox 98 99 Oxygen Delivery Method Room Air Room Air Positive well nourished and well developed General Appearance ED: well developed and NAD HEENT Reports moist mucous membranes Neck supple and no JVD Resp normal respiratory effort and clear to auscultation bilaterally Cardio regular rhythm Rate: tachycardic GI non-distended Palpation: soft and tender epigastric, LLQ, RLQ, LUQ, RUQ, periumbilical and suprapubic; Negative for guarding or rebound tenderness present Extremity normal to inspection General Extremety ED: Negative for edema or tenderness General Extremity: Negative for edema Neuro oriented x3, CN's II-XII intact bilaterally and no sensory deficits noted Sensorium / Orientation: alert Motor Exam: strength 5/5 throughout Psych (more content not included)... [facility] H AND P Exam - [facility] 12-14-2023 H&P Exam - Hospitalist [facility] Medical Records Department [address] [place] [address] H P Exam - Hospitalist 12/14/23 1437 MR#: [id number] Acct: [id number] Name: MARÍA REAL Rep #: [id number] : 1970 53 From: Mehul Granados DO PCP: Claire Lu, SHIFT MGR-C Status:ADM IN Location: [facility] LN872-1 HPI - General General Date of Admission: 12/14/23 Date of Service: 12/14/23 Chief Complaint: Nausea/vomiting/diar kayleigh and abdominal pain HPI Narrative MARÍA REAL, is a 53 F who presented to [facility] ED on 12/14/2023 with 1 day history of nausea/vomiting/diar kayleigh and mild abdominal pain. Patient is in fairly good health at baseline, lives at home with her . was at bedside with her today. Patient attended a local rally on Monday and about one thousand people were there. Overnight she started to feel nauseous and then starting yesterday morning she had roughly 10-15 episodes of vomiting and 20-25 episodes of diarrhea. She has not been able to keep any liquids or food down. She has had a diffuse crampy abdominal pain along with this. Denies any hematemesis or coffee-ground emesis. Diarrhea was watery and yellow, denies any melena or hematochezia. Reports having fevers and chills at home. She denies any recent illnesses and has not had any recent antibiotics. Was initially concerned she could have food poisoning from what she had at the rally but felt like her symptoms had now gone on too long for this. In the ED she was initially tachycardic to the 100s with mildly elevated blood pressure. She was dry appearing on exam. Her orthostatic vitals were positive. Lab workup was notable for sodium 133, potassium 3.2, creatinine 3.23 (baseline 1.1), and CBC appeared hemoconcentrated compared to prior labs. Given her inability to tolerate p.o. intake and AGUSTO, hospitalist was contacted for admission. I saw the patient at bedside in the ED, was present. Patient was mildly fatigued appearing and mildly uncomfortable appearing due to mid to upper abdominal pain. She stated she has had abdominal cramping over the past day but the abdominal pain currently is somewhat new for her. She was given a dose of IV morphine in the ED with some initial relief of pain but the pain is now returning. She was able to keep down some Sprite earlier. Has not had any bowel movements in the past hour or so. She was covered with multiple blankets and did report feeling some chills when I saw her. Given the abdominal pain, CT abdomen pelvis without contrast was obtained. Scan showed surgically absent gallbladder but otherwise no acute abnormalities. Patient otherwise denied any chest pain or shortness of breath. No other acute concerns at this time. [facility] Medical History (Updated 12/14/23 @ 14:[address] Ronnie Garcia DO) Vision problem Hypothyroidism High cholesterol Chronic headaches Carpal tunnel syndrome Back problem Anxiety and depression Home Medications ???Medication ???Instructions ???Recorded ???Last Taken ???Type Multipak 1 pkg PO DAILY supplement 01/18/18 12/13/23 History cholecalciferol (vitamin D3) 25 1,000 unit PO DAILY vitamin 01/18/18 12/13/23 History mcg (1,000 unit) capsule (Vitamin D3) vitamin B complex 1 ea PO DAILY supplement 01/18/18 12/13/23 History L.acidoph, paracasei,B. lactis 10 1 ea PO DAILY probiotic 03/12/18 12/13/23 History billion cell capsule bupropion HCl 150 mg 24 hr tablet, 150 mg PO DAILY 12/14/23 12/13/23 History extended release levothyroxine 125 mcg tablet 125 mcg PO DAILY 12/14/23 12/14/23 History Allergy/AdvReac Type Severity Reaction Status Date / Time No Known Allergies Allergy Verified 12/14/23 11:12 Family History Mother Diabetes Sister Diabetes Surgical History S/P endometrial ablation H/O hysterectomy for benign disease H/O thyroidectomy Plantar fasciitis, bilateral Social History Smoking Status: Never smoker second hand exposure: No alcohol intake: never substance use type: does not use ROS Constitutional Constitutional: Reports chills, fatigue and fever(s); Denies weakness Eyes Eyes: Denies change in vision Cardiovascular Cardiovascular: Denies chest pain Respiratory/Chest Respiratory/Chest: Denies shortness of breath at rest Gastrointestinal Gastrointestinal: Reports abdominal pain, diarrhea, nausea and vomiting; Denies coffee ground emesis, constipation, dyspepsia, hematemesis, hematochezia or melena Genitourinary Genitourinary: Denies dysuria Musculoskeletal Musculoskeletal: Denies arthralgias, back pain or myalgias Neurologic Neurologic: Denies dizziness, focal weakness or headache(s) Vital Signs Vital (more content not included)... [facility] Lipaseon 12-14-2023 Lipase [Catalytic activity/Vol] 63 U/L Normal 13-75 [facility] Comment on above: Result Comment: Naeem recinos note: LIPASE revised reference range effective 22. New Lipase methodology. Expected to produce lower values than the previous assay method. NEW Reference Range: 13 - 75 U/L Performed By: #### L 500.2500 #### [facility] [address] [place], [address] M100.678on 12-14-2023 M100.678 Pending SARS-CoV-2 (COVID 19) Negative INFLUENZA A Negative INFLUENZA B Negative RSV PCR Negative Normal [facility] Comment on above: Performed By: #### L 501.5200, L501.2300, L100.0100, L500.2500 #### [facility] [address] [place], [address] Magnesiumon 12-14-2023 Magnesium [Mass/Vol] 2.5 mg/dL Normal 1.6-2.6 [facility] Comment on above: Performed By: #### L 501.5200, L501.2300, L100.0100, L500.2500 #### [facility] [address] [place], [address] Phosphoruson 12-14-2023 Phosphate [Mass/Vol] 6.6 mg/dL High 2.5-4.9 [facility] Comment on above: Performed By: #### L 501.5200, L501.2300, L100.0100, L500.2500 #### [facility] [address] [place], [address] Urinalysis, Completeon 12-13 BACTERIA Normal None Seen [facility] Comment on above: Order Comment: CLEAN CATCH Result Comment: NO S PEC RECEIVED Performed By: #### L 501.5200, L501.2300, L100.0100, L500.2500 #### [facility] [address] [place], [address] BILIRUBIN URINE Normal Negative [facility] Comment on above: Order Comment: CLEAN CATCH Result Comment: NO S PEC RECEIVED Performed By: #### L 501.5200, L501.2300, L100.0100, L500.2500 #### [facility] [address] [place], [address] Clarity (U) Normal Clear [facility] Comment on above: Order Comment: CLEAN CATCH Result Comment: NO S PEC RECEIVED Performed By: #### L 501.5200, L501.2300, L100.0100, L500.2500 #### [facility] [address] [place], [address] Color (U) Normal Yellow [facility] Comment on above: Order Comment: CLEAN CATCH Result Comment: NO S PEC RECEIVED Performed By: #### L 501.5200, L501.2300, L100.0100, L500.2500 #### [facility] [address] [place], [address] EPI,SQUAMOUS Normal 5-10 [facility] Comment on above: Order Comment: CLEAN CATCH Result Comment: NO S PEC RECEIVED Performed By: #### L 501.5200, L501.2300, L100.0100, L500.2500 #### [facility] [address] [place], [address] GLUCOSE, UR Normal Normal [facility] Comment on above: Order Comment: CLEAN CATCH Result Comment: NO S PEC RECEIVED Performed By: #### L 501.5200, L501.2300, L100.0100, L500.2500 #### [facility] [address] [place], [address] KETONE UR Normal Negative [facility] Comment on above: Order Comment: CLEAN CATCH Result Comment: NO S PEC RECEIVED Performed By: #### L 501.5200, L501.2300, L100.0100, L500.2500 #### [facility] [address] [place], [address] LEUK ESTERASE Normal Negative [facility] Comment on above: Order Comment: CLEAN CATCH Result Comment: NO S PEC RECEIVED Performed By: #### L 501.5200, L501.2300, L100.0100, L500.2500 #### [facility] [address] [place], [address] Mucus Ql (Urine sed) Normal [facility] Comment on above: Order Comment: CLEAN CATCH Result Comment: NO S PEC RECEIVED Performed By: #### L 501.5200, L501.2300, L100.0100, L500.2500 #### [facility] [address] [place], [address] Nitrite Ql (U) Normal Negative [facility] Comment on above: Order Comment: CLEAN CATCH Result Comment: NO S PEC RECEIVED Performed By: #### L 501.5200, L501.2300, L100.0100, L500.2500 #### [facility] [address] [place], [address] OCCULT BLOOD-UR Normal Negative [facility] Comment on above: Order Comment: CLEAN CATCH Result Comment: NO S PEC RECEIVED Performed By: #### L 501.5200, L501.2300, L100.0100, L500.2500 #### [facility] [address] [place], [address] pH UR Normal 5.0 - 8.0 [facility] Comment on above: Order Comment: CLEAN CATCH Result Comment: NO S PEC RECEIVED Performed By: #### L 501.5200, L501.2300, L100.0100, L500.2500 #### [facility] [address] [place], [address] PROT DIPSTX Normal Negative [facility] Comment on above: Order Comment: CLEAN CATCH Result Comment: NO S PEC RECEIVED Performed By: #### L 501.5200, L501.2300, L100.0100, L500.2500 #### [facility] [address] [place], [address] RBC Normal 0-5 [facility] Comment on above: Order Comment: CLEAN CATCH Result Comment: NO S PEC RECEIVED Performed By: #### L 501.5200, L501.2300, L100.0100, L500.2500 #### [facility] [address] [place], [address] SP.GR. DIPSTX Normal 1.002-1.030 [facility] Comment on above: Order Comment: CLEAN CATCH Result Comment: NO S PEC RECEIVED Performed By: #### L 501.5200, L501.2300, L100.0100, L500.2500 #### [facility] [address] [place], [address] UR Preservative Normal [facility] Comment on above: Order Comment: CLEAN CATCH Result Comment: NO S PEC RECEIVED Performed By: #### L 501.5200, L501.2300, L100.0100, L500.2500 #### [facility] [address] [place], [address] UROBILI Normal Normal [facility] Comment on above: Order Comment: CLEAN CATCH Result Comment: NO S PEC RECEIVED Performed By: #### L 501.5200, L501.2300, L100.0100, L500.2500 #### [facility] [address] [place], [address] WBC Normal 0-5 [facility] Comment on above: Order Comment: CLEAN CATCH Result Comment: NO S PEC RECEIVED Performed By: #### L 501.5200, L501.2300, L100.0100, L500.2500 #### [facility] [address] [place], [address] Comprehensive Metabolic Prof ilon 09-08-2023 Albumin [Mass/Vol] 3.7 g/dL Normal 3.2-5.0 [facility] Comment on above: Performed By: #### L 500.2500 #### [facility] [address] [place], [address] Albumin/Globulin [Mass ratio] 1.2 {ratio} Normal 0.9-2.4 [facility] Comment on above: Performed By: #### L 500.2500 #### [facility] [address] [place], [address] ALK P 70 U/L Normal 45-117 [facility] Comment on above: Performed By: #### L 500.2500 #### [facility] [address] [place], [address] ALT [Catalytic activity/Vol] 25 U/L Normal 13-56 [facility] Comment on above: Performed By: #### L 500.2500 #### [facility] [address] [place], [address] AST [Catalytic activity/Vol] 19 U/L Normal 15-37 [facility] Comment on above: Performed By: #### L 500.2500 #### [facility] [address] [place], [address] Bilirubin [Mass/Vol] 0.40 mg/dL Normal 0.20-1.00 [facility] Comment on above: Result Comment: For patients on eltrombopag therapy, use of Dimension [place] TBIL is not recommended. Performed By: #### L 500.2500 #### [facility] [address] [place], [address] BUN/CRE 20.3 RATIO High 10-20 [facility] Comment on above: Performed By: #### L 500.2500 #### [facility] [address] [place], [address] CA,Total 9.1 mg/dL Normal 8.5-10.1 [facility] Comment on above: Performed By: #### L 500.2500 #### [facility] [address] [place], [address] Chloride [Moles/Vol] 103 mmol/L Normal 98-107 [facility] Comment on above: Performed By: #### L 500.2500 #### [facility] [address] [place], [address] CO2 [Moles/Vol] 31.0 mmol/L Normal 21.0-32.0 [facility] Comment on above: Performed By: #### L 500.2500 #### [facility] [address] [place], [address] Creatinine [Mass/Vol] 1.18 mg/dL High 0.55-1.02 [facility] Comment on above: Result Comment: The validity of the calculated GFR GFRAA in patients over 70 years has not been determined. Clinical correlation is essential. Performed By: #### L 500.2500 #### [facility] [address] [place], [address] EST GFR - AA 62 mL/min Normal >60 [facility] Comment on above: Result Comment: Afri can Egyptian GFR Calc Performed By: #### L 500.2500 #### [facility] [address] [place], [address] GAP 4 Low 5-15 [facility] Comment on above: Performed By: #### L 500.2500 #### [facility] [address] [place], [address] GFR/1.73 sq M.predicted among non-blacks MDRD (S/P/Bld) [Vol rate/Area] 51 mL/min/{1.73_m2} Low >60 [facility] Comment on above: Result Comment: Non- GFR Calc Performed By: #### L 500.2500 #### [facility] [address] [place], [address] Globulin (S) [Mass/Vol] 3.2 g/dL Normal 2.2-4.2 [facility] Comment on above: Performed By: #### L 500.2500 #### [facility] [address] [place], [address] Glucose [Mass/Vol] 138 mg/dL High 74-106 [facility] Comment on above: Result Comment: Fast ing Glucose result greater than or equal to 126 mg/dL suggests DIABETES MELLITUS per A.D.A. criteria. Performed By: #### L 500.2500 #### [facility] [address] [place], [address] Potassium [Moles/Vol] 4.3 mmol/L Normal 3.5-5.1 [facility] Comment on above: Performed By: #### L 500.2500 #### [facility] [address] [place], [address] Sodium [Moles/Vol] 138 mmol/L Normal 136-145 [facility] Comment on above: Performed By: #### L 500.2500 #### [facility] [address] [place], [address] T PROT 6.9 g/dL Normal 6.4-8.2 [facility] Comment on above: Performed By: #### L 500.2500 #### [facility] [address] [place], [address] Urea nitrogen [Mass/Vol] 24 mg/dL High 7-18 [facility] Comment on above: Performed By: #### L 500.2500 #### [facility] [address] [place], [address] Hemoglobin A1con 09-08-2023 HbA1c (Bld) [Mass fraction] 5.5 % Normal 3.8-5.6 [facility] Comment on above: Result Comment: Norm al < 5.7 % Prediabetic 5.7 - 6.4 % Diabetic >or= 6.5 % Please note range changes. Performed By: #### L 500.2500 #### [facility] [address] [place], [address] Magnesiumon 09-08-2023 Magnesium [Mass/Vol] 2.3 mg/dL Normal 1.6-2.6 [facility] Comment on above: Performed By: #### L 500.2500, L100.0500 #### [facility] [address] [place], [address] Phosphoruson 09-08-2023 Phosphate [Mass/Vol] 3.1 mg/dL Normal 2.5-4.9 [facility] Comment on above: Performed By: #### L 500.2500 #### [facility] [address] [place], [address] Amylaseon 07-14-2023 MARÍA 80 U/L Normal 25-115 [facility] Comment on above: Performed By: #### L 501.5200, L501.2300, L100.0100, L500.2500 #### [facility] [address] [place], [address] Basophil percentageOrdered B y: Claire Hollismika on 07-14-2023 Amylase [Catalytic activity/Vol] 80 U/L 25-115 [facility] Bilirubin [Mass/Vol] 0.60 mg/dL 0.20-1.00 [facility] Comment on above: For patients on eltr ombopag therapy, use of Dimension [place] TBIL is not recommended. Chloride [Moles/Vol] 108 mmol/L 98-107 [facility] Glucose [Mass/Vol] 89 mg/dL 74-106 [facility] Potassium [Moles/Vol] 4.3 mmol/L 3.5-5.1 [facility] Protein [Mass/Vol] 7.1 g/dL 6.4-8.2 [facility] Sodium [Moles/Vol] 141 mmol/L 136-145 [facility] Comprehensive Metabolic Prof ilon 07-14-2023 Albumin [Mass/Vol] 3.6 g/dL Normal 3.2-5.0 [facility] Comment on above: Performed By: #### L 501.5200, L501.2300, L100.0100, L500.2500 #### [facility] [address] [place], [address] Albumin/Globulin [Mass ratio] 1.0 {ratio} Normal 0.9-2.4 [facility] Comment on above: Performed By: #### L 501.5200, L501.2300, L100.0100, L500.2500 #### [facility] [address] [place], [address] ALK P 66 U/L Normal 45-117 [facility] Comment on above: Performed By: #### L 501.5200, L501.2300, L100.0100, L500.2500 #### [facility] [address] [place], [address] ALT [Catalytic activity/Vol] 25 U/L Normal 13-56 [facility] Comment on above: Performed By: #### L 501.5200, L501.2300, L100.0100, L500.2500 #### [facility] [address] [place], [address] AST [Catalytic activity/Vol] 17 U/L Normal 15-37 [facility] Comment on above: Performed By: #### L 501.5200, L501.2300, L100.0100, L500.2500 #### [facility] [address] [place], [address] Bilirubin [Mass/Vol] 0.60 mg/dL Normal 0.20-1.00 [facility] Comment on above: Result Comment: For patients on eltrombopag therapy, use of Dimension [place] TBIL is not recommended. Performed By: #### L 501.5200, L501.2300, L100.0100, L500.2500 #### [facility] [address] [place], [address] BUN/CRE 16.8 RATIO Normal 10-20 [facility] Comment on above: Performed By: #### L 501.5200, L501.2300, L100.0100, L500.2500 #### [facility] [address] [place], [address] CA,Total 9.5 mg/dL Normal 8.5-10.1 [facility] Comment on above: Performed By: #### L 501.5200, L501.2300, L100.0100, L500.2500 #### [facility] [address] [place], [address] Chloride [Moles/Vol] 108 mmol/L High 98-107 [facility] Comment on above: Performed By: #### L 501.5200, L501.2300, L100.0100, L500.2500 #### [facility] [address] [place], [address] CO2 [Moles/Vol] 32.0 mmol/L Normal 21.0-32.0 [facility] Comment on above: Performed By: #### L 501.5200, L501.2300, L100.0100, L500.2500 #### [facility] [address] [place], [address] Creatinine [Mass/Vol] 1.19 mg/dL High 0.55-1.02 [facility] Comment on above: Result Comment: The validity of the calculated GFR GFRAA in patients over 70 years has not been determined. Clinical correlation is essential. Performed By: #### L 501.5200, L501.2300, L100.0100, L500.2500 #### [facility] [address] [place], [address] EST GFR - AA 61 mL/min Normal >60 [facility] Comment on above: Result Comment: Afri can Egyptian GFR Calc Performed By: #### L 501.5200, L501.2300, L100.0100, L500.2500 #### [facility] [address] [place], [address] GAP 1 Low 5-15 [facility] Comment on above: Performed By: #### L 501.5200, L501.2300, L100.0100, L500.2500 #### [facility] [address] [place], [address] GFR/1.73 sq M.predicted among non-blacks MDRD (S/P/Bld) [Vol rate/Area] 50 mL/min/{1.73_m2} Low >60 [facility] Comment on above: Result Comment: Non- GFR Calc Performed By: #### L 501.5200, L501.2300, L100.0100, L500.2500 #### [facility] [address] [place], [address] Globulin (S) [Mass/Vol] 3.5 g/dL Normal 2.2-4.2 [facility] Comment on above: Performed By: #### L 501.5200, L501.2300, L100.0100, L500.2500 #### [facility] [address] [place], [address] Glucose [Mass/Vol] 89 mg/dL Normal 74-106 [facility] Comment on above: Performed By: #### L 501.5200, L501.2300, L100.0100, L500.2500 #### [facility] [address] [place], [address] Potassium [Moles/Vol] 4.3 mmol/L Normal 3.5-5.1 [facility] Comment on above: Performed By: #### L 501.5200, L501.2300, L100.0100, L500.2500 #### [facility] [address] [place], [address] Sodium [Moles/Vol] 141 mmol/L Normal 136-145 [facility] Comment on above: Performed By: #### L 501.5200, L501.2300, L100.0100, L500.2500 #### [facility] [address] [place], [address] T PROT 7.1 g/dL Normal 6.4-8.2 [facility] Comment on above: Performed By: #### L 501.5200, L501.2300, L100.0100, L500.2500 #### [facility] [address] [place], [address] Urea nitrogen [Mass/Vol] 20 mg/dL High 7-18 [facility] Comment on above: Performed By: #### L 501.5200, L501.2300, L100.0100, L500.2500 #### [facility] [address] [place], [address] Laboratory - Chemistry and C hemistry - challengeOrdered By: Claire Lu on 07-14-2023 Albumin/Globulin [Mass ratio] 1.0 {ratio} 0.9-2.4 [facility] ALP [Catalytic activity/Vol] 66 U/L 45-117 [facility] ALT [Catalytic activity/Vol] 25 U/L 13-56 [facility] CO2 [Moles/Vol] 32.0 mmol/L 21.0-32.0 [facility] Globulin (S) [Mass/Vol] 3.5 g/dL 2.2-4.2 [facility] Lipase [Catalytic activity/Vol] 81 U/L 13-75 [facility] Comment on above: Please note:LIPASE r evised reference range effective 22. New Lipase methodology. Expected to produce lower values than the previous assay method. NEW Reference Range: 13 - 75 U/L Urea nitrogen/Creatinine [Mass ratio] 16.8 mg/mg 10-20 [facility] Lipaseon 07-14-2023 Lipase [Catalytic activity/Vol] 81 U/L High - [facility] Comment on above: Result Comment: Naeem recinos note: LIPASE revised reference range effective 22. New Lipase methodology. Expected to produce lower values than the previous assay method. NEW Reference Range: 13 - 75 U/L Performed By: #### L 501.5200, L501.2300, L100.0100, L500.2500 #### [facility] [address] [place], [address] No Panel InformationOrdered By: Claire Lu on 07-14-2023 Estimated GFR (MDRD) Amer 61 mL/min >60 [facility] Comment on above: GFR Calc Estimated GFR (MDRD) Non-Af Amer 50 mL/min >60 [facility] Comment on above: Non- GFR Calc Serum or plasma calcium nitin urement (mass/volume)Ordered By: Claire Lu on 07-14-2023 Calcium [Mass/Vol] 9.5 mg/dL 8.5-10.1 [facility] Serum or plasma creatinine m easurement (mass/volume)Ordered By: Claire Lu on 07-14-2023 Creatinine [Mass/Vol] 1.19 mg/dL 0.55-1.02 [facility] Comment on above: The validity of the calculated GFR & GFRAA in patients over 70 years has not been determined. Clinical correlation is essential. Serum or plasma urea nitroge n measurement (mass/volume)Ordered By: Claire Lu on 07-14-2023 Urea nitrogen [Mass/Vol] 20 mg/dL 7-18 [facility] Thin prep Papanicolaou smear with manual screeningOrdered By: Claire Lu on 07-14-2023 Thin prep Papanicolaou smear with manual screening 3.6 g/dL 3.2-5.0 [facility] Thin prep Papanicolaou smear with manual screening 17 U/L 15-37 [facility] Thin prep Papanicolaou smear with manual screening 1 5-15 [facility] Basophil percentageOrdered B y: Claire Lu on 07-03-2023 Basophil percentage 0 SEEN /hpf 0-5 [facility] Bilirubin Test strip Ql (U)O rdered By: Claire Lu on 07-03-2023 Bilirubin Ql (U) Negative Negative [facility] Ketones Test strip Ql (U)Ord ered By: Claire Lu on 07-03-2023 Ketones Ql (U) Negative Negative [facility] Mucus LM Ql (Urine sed)Order ed By: Claire Lu on 07-03-2023 Mucus Ql (Urine sed) 0 SEEN /hpf [facility] Nitrite Test strip Ql (U)Ord ered By: Claire Lu on 07-03-2023 Nitrite Ql (U) Negative Negative [facility] No Panel InformationOrdered By: Claire Lu on 07-03-2023 Urine RBC 0 SEEN /hpf 0-5 [facility] Protein Test strip Ql (U)Ord ered By: Claire Lu on 07-03-2023 Protein Ql (U) Negative Negative [facility] Squamous epithelial cells de tection in urine sediment by light microscopyOrdered By: Claire Lu on 07-03-2023 Epithelial cells.squamous LM Ql (Urine sed) 0 SEEN /hpf 5-10 [facility] Urinalysis, Completeon 07-02 BACTERIA 0 SEEN Normal None Seen [facility] Comment on above: Order Comment: Urine , Random Performed By: #### L 501.5200, L501.2300, L100.0100, L500.2500 #### [facility] [address] [place], [address] EPI,SQUAMOUS 0 SEEN Normal 5-10 [facility] Comment on above: Order Comment: Urine , Random Performed By: #### L 501.5200, L501.2300, L100.0100, L500.2500 #### [facility] [address] [place], [address] Mucus Ql (Urine sed) 0 SEEN Normal [facility] Comment on above: Order Comment: Urine , Random Performed By: #### L 501.5200, L501.2300, L100.0100, L500.2500 #### [facility] [address] [place], [address] RBC 0 SEEN Normal 0-5 [facility] Comment on above: Order Comment: Urine , Random Performed By: #### L 501.5200, L501.2300, L100.0100, L500.2500 #### [facility] [address] [place], [address] WBC 0 SEEN Normal 0-5 [facility] Comment on above: Order Comment: Urine , Random Performed By: #### L 501.5200, L501.2300, L100.0100, L500.2500 #### [facility] [address] [place], [address] Urine blood detectionOrdered By: Claire Lu on 07-03-2023 RBC Ql (U) Negative Negative [facility] Urine clarityOrdered By: Bernard Lu on 07-03-2023 Clarity (U) Clear Clear [facility] Urine color determinationOrd ered By: Claire Lu on 07-03-2023 Color (U) Yellow Yellow [facility] Urine glucose detectionOrder ed By: Claire Lu on 07-03-2023 Glucose Ql (U) Normal mg/dl Normal [facility] Urine leukocyte esterase det ection by dipstickOrdered By: Claire Lu on 07-03-2023 Leukocyte esterase Test strip Ql (U) 25 /ul Negative [facility] Urine pHOrdered By: Claire benavides on 07-03-2023 pH (U) 8.0 [pH] 5.0 - 8.0 [facility] Urine sediment bacteria coun t by microscopy (number/high power field)Ordered By: Claire Lu on 07-03-2023 Bacteria LM.HPF (Urine sed) [#/Area] 0 /[HPF] None Seen [facility] Urine specific gravity measu rementOrdered By: Claire Lu on 07-03-2023 Specific gravity (U) [Rel density] 1.010 1.002-1.030 [facility] Urine urobilinogen measureme ntOrdered By: Claire Lu on 07-03-2023 Urobilinogen Ql (U) Normal mg/dl Normal [facility] Microalbumin,Random Urineon 06-14-2023 MICROALBUMIN,UR 5.9 mg/L Normal NO RANGE EST. [facility] Comment on above: Performed By: #### L 502.0500 #### [facility] [address] [place], [address] Thin prep Papanicolaou smear with manual screeningOrdered By: Claire Lu on 06-13-2023 Thin prep Papanicolaou smear with manual screening 5.9 mg/L NO RANGE EST. [facility] Comprehensive Metabolic Prof ilon 06-09-2023 Albumin [Mass/Vol] 3.5 g/dL Normal 3.2-5.0 [facility] Comment on above: Performed By: #### L 501.5200, L501.2300, L100.0100, L500.2500 #### [facility] [address] [place], [address] Albumin/Globulin [Mass ratio] 1.0 {ratio} Normal 0.9-2.4 [facility] Comment on above: Performed By: #### L 501.5200, L501.2300, L100.0100, L500.2500 #### [facility] [address] [place], [address] ALK P 66 U/L Normal 45-117 [facility] Comment on above: Performed By: #### L 501.5200, L501.2300, L100.0100, L500.2500 #### [facility] [address] [place], [address] ALT [Catalytic activity/Vol] 34 U/L Normal 13-56 [facility] Comment on above: Performed By: #### L 501.5200, L501.2300, L100.0100, L500.2500 #### [facility] [address] [place], [address] AST [Catalytic activity/Vol] 27 U/L Normal 15-37 [facility] Comment on above: Performed By: #### L 501.5200, L501.2300, L100.0100, L500.2500 #### [facility] [address] [place], [address] Bilirubin [Mass/Vol] 0.40 mg/dL Normal 0.20-1.00 [facility] Comment on above: Result Comment: For patients on eltrombopag therapy, use of Dimension [place] TBIL is not recommended. Performed By: #### L 501.5200, L501.2300, L100.0100, L500.2500 #### [facility] [address] [place], [address] BUN/CRE 23.1 RATIO High 10-20 [facility] Comment on above: Performed By: #### L 501.5200, L501.2300, L100.0100, L500.2500 #### [facility] [address] [place], [address] CA,Total 9.1 mg/dL Normal 8.5-10.1 [facility] Comment on above: Performed By: #### L 501.5200, L501.2300, L100.0100, L500.2500 #### [facility] [address] [place], [address] Chloride [Moles/Vol] 104 mmol/L Normal 98-107 [facility] Comment on above: Performed By: #### L 501.5200, L501.2300, L100.0100, L500.2500 #### [facility] [address] [place], [address] CO2 [Moles/Vol] 32.0 mmol/L Normal 21.0-32.0 [facility] Comment on above: Performed By: #### L 501.5200, L501.2300, L100.0100, L500.2500 #### [facility] [address] [place], [address] Creatinine [Mass/Vol] 1.17 mg/dL High 0.55-1.02 [facility] Comment on above: Result Comment: The validity of the calculated GFR GFRAA in patients over 70 years has not been determined. Clinical correlation is essential. Performed By: #### L 501.5200, L501.2300, L100.0100, L500.2500 #### [facility] [address] [place], [address] EST GFR - AA 62 mL/min Normal >60 [facility] Comment on above: Result Comment: Afri can Egyptian GFR Calc Performed By: #### L 501.5200, L501.2300, L100.0100, L500.2500 #### [facility] [address] [place], [address] GAP 4 Low 5-15 [facility] Comment on above: Performed By: #### L 501.5200, L501.2300, L100.0100, L500.2500 #### [facility] [address] [place], [address] GFR/1.73 sq M.predicted among non-blacks MDRD (S/P/Bld) [Vol rate/Area] 51 mL/min/{1.73_m2} Low >60 [facility] Comment on above: Result Comment: Non- GFR Calc Performed By: #### L 501.5200, L501.2300, L100.0100, L500.2500 #### [facility] [address] [place], [address] Globulin (S) [Mass/Vol] 3.4 g/dL Normal 2.2-4.2 [facility] Comment on above: Performed By: #### L 501.5200, L501.2300, L100.0100, L500.2500 #### [facility] [address] [place], [address] Glucose [Mass/Vol] 135 mg/dL High 74-106 [facility] Comment on above: Result Comment: Fast ing Glucose result greater than or equal to 126 mg/dL suggests DIABETES MELLITUS per A.D.A. criteria. Performed By: #### L 501.5200, L501.2300, L100.0100, L500.2500 #### [facility] [address] [place], [address] Potassium [Moles/Vol] 4.4 mmol/L Normal 3.5-5.1 [facility] Comment on above: Performed By: #### L 501.5200, L501.2300, L100.0100, L500.2500 #### [facility] [address] [place], [address] Sodium [Moles/Vol] 140 mmol/L Normal 136-145 [facility] Comment on above: Performed By: #### L 501.5200, L501.2300, L100.0100, L500.2500 #### [facility] [address] [place], [address] T PROT 6.9 g/dL Normal 6.4-8.2 [facility] Comment on above: Performed By: #### L 501.5200, L501.2300, L100.0100, L500.2500 #### [facility] [address] [place], [address] Urea nitrogen [Mass/Vol] 27 mg/dL High 7-18 [facility] Comment on above: Performed By: #### L 501.5200, L501.2300, L100.0100, L500.2500 #### [facility] [address] [place], [address] Free T3on 06-09-2023 Free T3 [Mass/Vol] 2.7 pg/mL Normal 2.18-3.98 [facility] Comment on above: Performed By: #### L 501.5200, L501.2300, L100.0100, L500.2500 #### [facility] [address] [place], [address] T4 Free Directon 06-09-2023 T4 FREE DIRECT 1.34 ng/dL Normal 0.76-1.46 [facility] Comment on above: Performed By: #### L 501.5200, L501.2300, L100.0100, L500.2500 #### [facility] [address] [place], [address] Thyroid Stim Hormone (TSH)on 06-09-2023 TSH 0.06 uIU/mL Low 0.358-3.74 [facility] Comment on above: Performed By: #### L 501.5200, L501.2300, L100.0100, L500.2500 #### [facility] [address] [place], [address] Absolute lymphocyte countOrd ered By: Claire Lu on 06-08-2023 Lymphocytes Auto (Unsp spec) [#/Vol] 1.75 10*3/uL 0.83-4.51 [facility] Automated lymphocyte count a s percentage of total leukocytesOrdered By: Claire Lu on 06-08-2023 Lymphocytes/100 WBC Auto (Unsp spec) 20.7 % 19-41 [facility] Basophil percentageOrdered B y: Claire Lu on 06-08-2023 Basophils/100 WBC (Bld) 1.4 % 0-1 [facility] Bilirubin [Mass/Vol] 0.40 mg/dL 0.20-1.00 [facility] Comment on above: For patients on eltr ombopag therapy, use of Dimension [place] TBIL is not recommended. Chloride [Moles/Vol] 104 mmol/L 98-107 [facility] Eosinophils/100 WBC (Bld) 10.0 % 0-5 [facility] Glucose [Mass/Vol] 135 mg/dL 74-106 [facility] Comment on above: Fasting Glucose resu lt greater than or equal to 126 mg/dL suggests DIABETES MELLITUS per A.D.A. criteria. Hemoglobin (Bld) [Mass/Vol] 13.5 g/dL 12.0-15.0 [facility] Monocytes/100 WBC (Bld) 7.9 % 0-10 [facility] Neutrophils (Bld) [#/Vol] 5.0 10*3/uL 2.0-7.7 [facility] Neutrophils/100 WBC (Bld) 59.6 % 47-70 [facility] Potassium [Moles/Vol] 4.4 mmol/L 3.5-5.1 [facility] Protein [Mass/Vol] 6.9 g/dL 6.4-8.2 [facility] Sodium [Moles/Vol] 140 mmol/L 136-145 [facility] WBC (Bld) [#/Vol] 8.4 10*3/uL 4.4-11.0 [facility] CBC W/Diff, Automatedon 05-12 Absolute Lymph 1.75 X10 3/uL Normal 0.83-4.51 [facility] Comment on above: Performed By: #### L 501.5200, L501.2300, L100.0100, L500.2500 #### [facility] [address] [place], [place], [id number] Absolute Neut 5.0 X10 3/uL Normal 2.0-7.7 [facility] Comment on above: Performed By: #### L 501.5200, L501.2300, L100.0100, L500.2500 #### [facility] [address] [place], [address] Basophils/100 WBC (Bld) 1.4 % High 0-1 [facility] Comment on above: Performed By: #### L 501.5200, L501.2300, L100.0100, L500.2500 #### [facility] [address] [place], [address] Eosinophils/100 WBC (Bld) 10.0 % High 0-5 [facility] Comment on above: Performed By: #### L 501.5200, L501.2300, L100.0100, L500.2500 #### [facility] [address] [place], [address] Erythrocyte distribution width (RBC) [Ratio] 12.3 % Normal 11.6-14.6 [facility] Comment on above: Performed By: #### L 501.5200, L501.2300, L100.0100, L500.2500 #### [facility] [address] [place], [address] Hematocrit (Bld) [Volume fraction] 42.6 % Normal 37-47 [facility] Comment on above: Performed By: #### L 501.5200, L501.2300, L100.0100, L500.2500 #### [facility] [address] [place], [address] Hemoglobin (Bld) [Mass/Vol] 13.5 g/dL Normal 12.0-15.0 [facility] Comment on above: Performed By: #### L 501.5200, L501.2300, L100.0100, L500.2500 #### [facility] [address] [place], [address] IG% 0.400 Normal 0.0-0.9 [facility] Comment on above: Result Comment: IG% - Immature Granulocytes (promyelocytes, myelocytes and metamyelocytes) > 1% indicates that a LEFT SHIFT is Present. Performed By: #### L [id number], [id number], L100.0100, L500.2500 #### [facility] [address] [place], [address] Lymphocytes/100 WBC (Bld) 20.7 % Normal 19-41 [facility] Comment on above: Performed By: #### L [id number], [id number], L100.0100, [id number] #### [facility] [address] [place], [address] MCH (RBC) [Entitic mass] 30.2 pg Normal 27.0-32.0 [facility] Comment on above: Performed By: #### L [id number], [id number], L100.0100, L500.2500 #### [facility] [address] [place], [address] MCHC (RBC) [Mass/Vol] 31.7 g/dL Low 32-36 [facility] Comment on above: Performed By: #### L [id number], [id number], L100.0100, L500.2500 #### [facility] [address] [place], [address] MCV (RBC) [Entitic vol] 95.3 fL Normal 81-99 [facility] Comment on above: Performed By: #### L [id number], [id number], L100.0100, L500.2500 #### [facility] [address] [place], [address] Monocytes/100 WBC (Bld) 7.9 % Normal 0-10 [facility] Comment on above: Performed By: #### L [id number], [id number], L100.0100, L500.2500 #### [facility] [address] [place], [address] Neutrophils/100 WBC (Bld) 59.6 % Normal 47-70 [facility] Comment on above: Performed By: #### L [id number], [id number], L100.0100, L500.2500 #### [facility] [address] [place], [address] Nucleated RBC (Bld) [#/Vol] 0 10*3/uL Normal 0-5 [facility] Comment on above: Performed By: #### L [id number], [id number], L100.0100, L500.2500 #### [facility] [address] [place], [address] Platelet mean volume (Bld) [Entitic vol] 10.1 fL Normal 6.2-12.0 [facility] Comment on above: Performed By: #### L [id number], [id number], L100.0100, L500.2500 #### [facility] [address] [place], [address] Platelets (Bld) [#/Vol] 297 10*3/uL Normal 150-450 [facility] Comment on above: Performed By: #### L [id number], [id number], L100.0100, L500.2500 #### [facility] [address] [place], [address] RBC (Bld) [#/Vol] 4.47 10*6/uL Normal 4.2-5.4 [facility] Comment on above: Performed By: #### L [id number], [id number], L100.0100, L500.2500 #### [facility] [address] [place], [address] RDW SD 43.0 fl Normal 35.1-43.9 [facility] Comment on above: Performed By: #### L [id number], [id number], L100.0100, L500.2500 #### [facility] [address] [place], [place], [id number] WBC (Bld) [#/Vol] 8.4 10*3/uL Normal 4.4-11.0 [facility] Comment on above: Performed By: #### L [id number], [id number], L100.0100, L500.2500 #### [facility] [address] [place], [address] Determination of erythrocyte mean corpuscular volume (MCV)Ordered By: Claire Lu on 06-08-2023 MCV (RBC) [Entitic vol] 95.3 fL 81-99 [facility] Erythrocyte distribution wid th ratioOrdered By: Claire Lu on 06-08-2023 Erythrocyte distribution width (RBC) [Ratio] 12.3 % 11.6-14.6 [facility] Erythrocyte distribution wid th standard deviationOrdered By: Claire Lu on 06-08-2023 Erythrocyte distribution width (RBC) [Entitic vol] 43.0 fL 35.1-43.9 [facility] Hematocrit Auto (Bld) [Volum e fraction]Ordered By: Claire Lu on 06-08-2023 Hematocrit (Bld) [Volume fraction] 42.6 % 37-47 [facility] Immature granulocytes/100 WB C Auto (Bld)Ordered By: Claire Lu on 06-08-2023 Immature granulocytes/100 WBC (Bld) 0.400 % 0.0-0.9 [facility] Comment on above: IG% - Immature Granu locytes (promyelocytes, myelocytes and metamyelocytes) > 1% indicates that a LEFT SHIFT is Present. Laboratory - Chemistry and C hemistry - challengeOrdered By: Claire Lu on 06-08-2023 Albumin/Globulin [Mass ratio] 1.0 {ratio} 0.9-2.4 [facility] ALP [Catalytic activity/Vol] 66 U/L 45-117 [facility] ALT [Catalytic activity/Vol] 34 U/L 13-56 [facility] CO2 [Moles/Vol] 32.0 mmol/L 21.0-32.0 [facility] Globulin (S) [Mass/Vol] 3.4 g/dL 2.2-4.2 [facility] Urea nitrogen/Creatinine [Mass ratio] 23.1 mg/mg 10-20 [facility] - Hematology and Cell countsOrdered By: Claire Lu on 06-08-2023 MCH (RBC) [Entitic mass] 30.2 pg 27.0-32.0 [facility] MCHC (RBC) [Mass/Vol] 31.7 g/dL 32-36 [facility] Nucleated RBC/100 WBC (Bld) [Ratio] 0 % 0-5 [facility] Platelet mean volume (Bld) [Entitic vol] 10.1 fL 6.2-12.0 [facility] Platelets (Bld) [#/Vol] 297 10*3/uL 150-450 [facility] No Panel InformationOrdered By: Claire Lu on 06-08-2023 Estimated GFR (MDRD) Amer 62 mL/min >60 [facility] Comment on above: GFR Calc Estimated GFR (MDRD) Non-Af Amer 51 mL/min >60 [facility] Comment on above: Non- GFR Calc Free Triiodothyronine (T3) pg/dL 2.7 pg/mL 2.18-3.98 [facility] RBC Auto (Bld) [#/Vol]Ordere d By: Claire Lu on 06-08-2023 RBC (Bld) [#/Vol] 4.47 10*6/uL 4.2-5.4 [facility] Serum or plasma calcium nitin urement (mass/volume)Ordered By: Claire Lu on 06-08-2023 Calcium [Mass/Vol] 9.1 mg/dL 8.5-10.1 [facility] Serum or plasma creatinine m easurement (mass/volume)Ordered By: Claire Lu on 06-08-2023 Creatinine [Mass/Vol] 1.17 mg/dL 0.55-1.02 [facility] Comment on above: The validity of the calculated GFR & GFRAA in patients over 70 years has not been determined. Clinical correlation is essential. Serum or plasma thyroid stim ulating hormone (TSH) measurement (units/volume)Ordered By: Claire Lu on 06-08-2023 TSH Qn 0.06 uIU/mL 0.358-3.74 [facility] Serum or plasma urea nitroge n measurement (mass/volume)Ordered By: Claire Lu on 06-08-2023 Urea nitrogen [Mass/Vol] 27 mg/dL 7-18 [facility] Thin prep Papanicolaou smear with manual screeningOrdered By: Claire Lu on 06-08-2023 Thin prep Papanicolaou smear with manual screening 3.5 g/dL 3.2-5.0 [facility] Thin prep Papanicolaou smear with manual screening 27 U/L 15-37 [facility] Thin prep Papanicolaou smear with manual screening 4 5-15 [facility] Thin prep Papanicolaou smear with manual screening 1.34 ng/dL 0.76-1.46 [facility] Basophil percentageOrdered B y: Claire Lu on 05-19-2022 Testosterone [Mass/Vol] 16.69 ng/dL [facility] Comment on above: CENTRAL 90% REFERENC E RANGES MALE AGE <50 197.44 - 669.58 ng/dL MALE AGE > or = 50 187.72 - 684.19 ng/dL FEMALE AGE <50 8.38 - 35.01 ng/dL FEMALE AGE > or = 50 <7.00 - 35.92 ng/dL Effective as of 10/06/20 Laboratory - Chemistry and C hemistry - challengeOrdered By: Claire Lu on 05-19-2022 Free T4 [Mass/Vol] 1.36 ng/dL 0.76-1.46 [facility] No Panel InformationOrdered By: Claire Lu on 05-19-2022 Free Triiodothyronine (T3) pg/dL 2.4 pg/mL 2.18-3.98 [facility] Thyroid Stimulating Hormone (TSH) 0.04 uIU/mL 0.358-3.74 [facility] Serum or plasma estradiol (E 2) measurement (mass/volume)Ordered By: Claire Lu on 05-19-2022 E2 [Mass/Vol] 181.8 pg/mL [facility] Comment on above: NORMAL REFERENCE RAN GES FEMALE FOLLICULAR 21.4 - 164.8 pg/mL MID-CYCLE PEAK 49.9 - 367.2 pg/mL LUTEAL 40.2 - 259.0 pg/mL POST-MENOPAUSAL ON MHT <11.0 - 462.1 pg/mL NOT ON MHT <11.0 - 58.3 pg/mL MALE <11.0 - 52.5 pg/mL NOTE:[employer] HAS CONFIRMED THE DRUG FULVETRANT (FASLODEX) MAY CAUSE FALSELY ELEVATED ESTRADIOL RESULTS WHEN USING THIS TEST METHOD. IF PATIENT IS TAKING FULVESTRANT AN ALTERNATIVE METHOD SHOULD BE USED TO DETERMINE ESTRADIOL CONCENTRATION. Serum or plasma progesterone measurement (mass/volume)Ordered By: Claire Lu on 05-19-2022 Progesterone [Mass/Vol] 4.45 ng/mL See Comment [facility] Comment on above: Progesterone Referen ce Table: UNITS Female: Follicular 0.15 - 1.40 ng/mL Luteal 3.34 - 25.56 ng/mL Mid-luteal 4.44 - 28.03 ng/mL Postmenopausal 0.0 - 0.73 ng/mL : 1st Trimester 11.22 - 90.00 ng/mL 2nd Trimester 25.55 - 89.40 ng/mL 3rd Trimester 48.40 -422.50 ng/mL Absolute lymphocyte countOrd ered By: Claire Lu on 03-31-2022 Lymphocytes Auto (Unsp spec) [#/Vol] 1.61 10*3/uL 0.83-4.51 [facility] Basophil percentageOrdered B y: Claire Lu on 03-31-2022 Basophils/100 WBC (Bld) 0.6 % 0-1 [facility] Bilirubin [Mass/Vol] 0.40 mg/dL 0.20-1.00 [facility] Comment on above: For patients on eltr ombopag therapy, use of Dimension [place] TBIL is not recommended. Chloride [Moles/Vol] 104 mmol/L 98-107 [facility] Eosinophils/100 WBC (Bld) 2.4 % 0-5 [facility] Glucose [Mass/Vol] 92 mg/dL 74-106 [facility] Neutrophils (Bld) [#/Vol] 4.5 10*3/uL 2.0-7.7 [facility] Neutrophils/100 WBC (Bld) 67.7 % 47-70 [facility] Potassium [Moles/Vol] 4.0 mmol/L 3.5-5.1 [facility] Protein [Mass/Vol] 7.0 g/dL 6.4-8.2 [facility] Sodium [Moles/Vol] 137 mmol/L 136-145 [facility] WBC (Bld) [#/Vol] 6.7 10*3/uL 4.4-11.0 [facility] Testosterone [Mass/Vol] 17.31 ng/dL [facility] Comment on above: CENTRAL 90% REFERENC E RANGES MALE AGE <50 197.44 - 669.58 ng/dL MALE AGE > or = 50 187.72 - 684.19 ng/dL FEMALE AGE <50 8.38 - 35.01 ng/dL FEMALE AGE > or = 50 <7.00 - 35.92 ng/dL Effective as of 10/06/20 Blood erythrocytes count (nu mber/volume)Ordered By: Claire Lu on 03-31-2022 RBC (Bld) [#/Vol] 4.51 10*6/uL 4.2-5.4 [facility] Blood hemoglobin measurement (mass/volume)Ordered By: Claire Lu on 03-31-2022 Hemoglobin (Bld) [Mass/Vol] 13.9 g/dL 12.0-15.0 [facility] Blood lymphocytes/100 leukoc ytesOrdered By: Claire Lu on 03-31-2022 Lymphocytes/100 WBC (Bld) 24.1 % 19-41 [facility] Blood monocytes/100 leukocyt esOrdered By: Claire Lu on 03-31-2022 Monocytes/100 WBC (Bld) 4.9 % 0-10 [facility] Blood platelet mean volumeOr dered By: Claire Lu on 03-31-2022 Platelet mean volume (Bld) [Entitic vol] 9.8 fL 6.2-12.0 [facility] Determination of erythrocyte mean corpuscular volume (MCV)Ordered By: Claire Lu on 03-31-2022 MCV (RBC) [Entitic vol] 94.9 fL 81-99 [facility] Hematocrit Auto (Bld) [Volum e fraction]Ordered By: Claire Lu on 03-31-2022 Hematocrit (Bld) [Volume fraction] 42.8 % 37-47 [facility] - Chemistry and C hemistry - challengeOrdered By: Claire Lu on 03-31-2022 ALP [Catalytic activity/Vol] 61 U/L 45-117 [facility] ALT [Catalytic activity/Vol] 23 U/L 13-56 [facility] CO2 [Moles/Vol] 30.0 mmol/L 21.0-32.0 [facility] Free T4 [Mass/Vol] 1.57 ng/dL 0.76-1.46 [facility] Globulin (S) [Mass/Vol] 3.6 g/dL 2.2-4.2 [facility] Urea nitrogen/Creatinine [Mass ratio] 23.5 mg/mg 10-20 [facility] Cobalamin (Vitamin B12) [Mass/Vol] 1308 pg/mL 211-911 [facility] - Hematology and Cell countsOrdered By: Claire Lu on 03-31-2022 Erythrocyte distribution width (RBC) [Entitic vol] 41.8 fL 35.1-43.9 [facility] Erythrocyte distribution width (RBC) [Ratio] 12.0 % 11.6-14.6 [facility] Immature granulocytes/100 WBC (Bld) 0.300 % 0.0-0.9 [facility] Comment on above: IG% - Immature Granu locytes (promyelocytes, myelocytes and metamyelocytes) > 1% indicates that a LEFT SHIFT is Present. MCH (RBC) [Entitic mass] 30.8 pg 27.0-32.0 [facility] Nucleated RBC/100 WBC (Bld) [Ratio] 0 % 0-5 [facility] MCHC Auto (RBC) [Mass/Vol]Or dered By: Claire Lu on 03-31-2022 MCHC (RBC) [Mass/Vol] 32.5 g/dL 32-36 [facility] No Panel InformationOrdered By: Claire Lu on 03-31-2022 Dehydroepiandrosterone Sulfate 94.1 ug/dL 41.2-243.7 [facility] Estimated GFR (MDRD) Amer 81 mL/min >60 [facility] Comment on above: GFR Calc Estimated GFR (MDRD) Non-Af Amer 67 mL/min >60 [facility] Comment on above: Non- GFR Calc Free Triiodothyronine (T3) pg/dL 2.5 pg/mL 2.18-3.98 [facility] Thyroglobulin Antibody 9.4 IU/mL 0.0-0.9 [facility] Comment on above: Thyroglobulin Antibo dy measured by Robin CoulterMethodology Thyroid Stimulating Hormone (TSH) 0.01 uIU/mL 0.358-3.74 [facility] Vitamin D 25-Hydroxy 77.0 ng/mL [facility] Comment on above: Vitamin D 25(OH) Sta tus Range Deficiency <20 ng/mL (50nmol/L) Insufficiency 20 - 30 ng/mL (50 - 75 nmol/L) Sufficiency 30 - 100 ng/mL (75 - 250 nmol/L) Toxicity >100 ng/mL (>250 nmol/L) Platelets bldOrdered By: Bernard Lu on 03-31-2022 Platelets (Bld) [#/Vol] 328 10*3/uL 150-450 [facility] Serum or plasma albumin nitin urement (mass/volume)Ordered By: Claire Lu on 03-31-2022 Albumin [Mass/Vol] 3.4 g/dL 3.2-5.0 [facility] Serum or plasma albumin/glob ulin mass ratioOrdered By: Claire Lu on 03-31-2022 Albumin/Globulin [Mass ratio] 0.9 {ratio} 0.9-2.4 [facility] Serum or plasma calcium nitin urement (mass/volume)Ordered By: Claire Lu on 03-31-2022 Calcium [Mass/Vol] 9.0 mg/dL 8.5-10.1 [facility] Serum or plasma creatinine m easurement (mass/volume)Ordered By: Claire Lu on 03-31-2022 Creatinine [Mass/Vol] 0.94 mg/dL 0.55-1.02 [facility] Comment on above: The validity of the calculated GFR & GFRAA in patients over 70 years has not been determined. Clinical correlation is essential. Serum or plasma estradiol (E 2) measurement (mass/volume)Ordered By: Claire Lu on 03-31-2022 E2 [Mass/Vol] 550.2 pg/mL [facility] Comment on above: NORMAL REFERENCE RAN GES FEMALE FOLLICULAR 21.4 - 164.8 pg/mL MID-CYCLE PEAK 49.9 - 367.2 pg/mL LUTEAL 40.2 - 259.0 pg/mL POST-MENOPAUSAL ON MHT <11.0 - 462.1 pg/mL NOT ON MHT <11.0 - 58.3 pg/mL MALE <11.0 - 52.5 pg/mL NOTE:[employer] HAS CONFIRMED THE DRUG FULVETRANT (FASLODEX) MAY CAUSE FALSELY ELEVATED ESTRADIOL RESULTS WHEN USING THIS TEST METHOD. IF PATIENT IS TAKING FULVESTRANT AN ALTERNATIVE METHOD SHOULD BE USED TO DETERMINE ESTRADIOL CONCENTRATION. Serum or plasma progesterone measurement (mass/volume)Ordered By: Claire Lu on 03-31-2022 Progesterone [Mass/Vol] 12.85 ng/mL See Comment [facility] Comment on above: Progesterone Referen ce Table: UNITS Female: Follicular 0.15 - 1.40 ng/mL Luteal 3.34 - 25.56 ng/mL Mid-luteal 4.44 - 28.03 ng/mL Postmenopausal 0.0 - 0.73 ng/mL : 1st Trimester 11.22 - 90.00 ng/mL 2nd Trimester 25.55 - 89.40 ng/mL 3rd Trimester 48.40 -422.50 ng/mL Serum or plasma thyroperoxid ase antibody assay (units/volume)Ordered By: Claire Lu on 03-31-2022 TPO Ab Qn 14 [IU]/mL 0-34 [facility] Comment on above: Performed at: [place] [id number] Director: Nixon Woodard PhD, Phone: [phone] Serum or plasma urea nitroge n measurement (mass/volume)Ordered By: Claire Lu on 03-31-2022 Urea nitrogen [Mass/Vol] 22 mg/dL 7-18 [facility] Thin prep Papanicolaou smear with manual screeningOrdered By: Claire Lu on 03-31-2022 Thin prep Papanicolaou smear with manual screening 18 U/L 15-37 [facility] Thin prep Papanicolaou smear with manual screening 3 5-15 [facility] - Chemistry and C hemistry - challengeon 10-08-2021 Free T4 [Mass/Vol] 1.52 ng/dL 0.76-1.46 [facility] Work Phone: No Panel Informationon 10-08 Free Triiodothyronine (T3) pg/dL 3.0 pg/mL 2.18-3.98 [facility] Work Phone: Thyroid Stimulating Hormone (TSH) 0.01 uIU/mL 0.358-3.74 [facility] Work Phone: Serum or plasma estradiol (E 2) measurement (mass/volume)on 10-08-2021 E2 [Mass/Vol] 198.2 pg/mL [facility] Work Phone: Comment on above: NORMAL REFERENCE RAN GES FEMALE FOLLICULAR 21.4 - 164.8 pg/mL MID-CYCLE PEAK 49.9 - 367.2 pg/mL LUTEAL 40.2 - 259.0 pg/mL POST-MENOPAUSAL ON MHT <11.0 - 462.1 pg/mL NOT ON MHT <11.0 - 58.3 pg/mL MALE <11.0 - 52.5 pg/mL NOTE:[employer] HAS CONFIRMED THE DRUG FULVETRANT (FASLODEX) MAY CAUSE FALSELY ELEVATED ESTRADIOL RESULTS WHEN USING THIS TEST METHOD. IF PATIENT IS TAKING FULVESTRANT AN ALTERNATIVE METHOD SHOULD BE USED TO DETERMINE ESTRADIOL CONCENTRATION. Serum or plasma progesterone measurement (mass/volume)on 10-08-2021 Progesterone [Mass/Vol] 22.14 ng/mL See Comment [facility] Work Phone: Comment on above: Progesterone Referen ce Table: UNITS Female: Follicular 0.15 - 1.40 ng/mL Luteal 3.34 - 25.56 ng/mL Mid-luteal 4.44 - 28.03 ng/mL Postmenopausal 0.0 - 0.73 ng/mL : 1st Trimester 11.22 - 90.00 ng/mL 2nd Trimester 25.55 - 89.40 ng/mL 3rd Trimester 48.40 -422.50 ng/mL Absolute lymphocyte counton 08-05-2021 Lymphocytes Auto (Unsp spec) [#/Vol] 1.21 10*3/uL 0.83-4.51 [facility] Work Phone: Basophil percentageon 2021 Basophils/100 WBC (Bld) 0.9 % 0-1 [facility] Work Phone: Bilirubin [Mass/Vol] 0.90 mg/dL 0.20-1.00 [facility] Work Phone: Comment on above: For patients on eltr ombopag therapy, use of Dimension [place] TBIL is not recommended. Chloride [Moles/Vol] 103 mmol/L 98-107 [facility] Work Phone: Cholesterol [Mass/Vol] 262 mg/dL <200 [facility] Work Phone: Comment on above: <200 mg/dL Desirable 200-240 mg/dL Borderline >240 mg/dL High Risk Eosinophils/100 WBC (Bld) 3.0 % 0-5 [facility] Work Phone: Glucose [Mass/Vol] 79 mg/dL 74-106 [facility] Work Phone: Neutrophils (Bld) [#/Vol] 3.5 10*3/uL 2.0-7.7 [facility] Work Phone: Neutrophils/100 WBC (Bld) 65.9 % 47-70 [facility] Work Phone: Potassium [Moles/Vol] 4.4 mmol/L 3.5-5.1 [facility] Work Phone: Protein [Mass/Vol] 7.3 g/dL 6.4-8.2 [facility] Work Phone: Sodium [Moles/Vol] 141 mmol/L 136-145 [facility] Work Phone: Triglyceride [Mass/Vol] 73 mg/dL <199 [facility] Work Phone: Comment on above: The drugs N-Acetylcy steine and Metamizole may falsely depress this assay.Serum Triglycerides Reference Interval Normal <150 mg/dL Borderline high 150 - 199 mg/dL High 200 - 499 mg/dL Very High > or = 500 mg/dL WBC (Bld) [#/Vol] 5.3 10*3/uL 4.4-11.0 [facility] Work Phone: Blood erythrocytes count (nu mber/volume)on 08-05-2021 RBC (Bld) [#/Vol] 4.56 10*6/uL 4.2-5.4 [facility] Work Phone: Blood hemoglobin measurement (mass/volume)on 08-05-2021 Hemoglobin (Bld) [Mass/Vol] 14.3 g/dL 12.0-15.0 [facility] Work Phone: Blood lymphocytes/100 leukoc yteson 08-05-2021 Lymphocytes/100 WBC (Bld) 22.8 % 19-41 [facility] Work Phone: Blood monocytes/100 leukocyt eson 08-05-2021 Monocytes/100 WBC (Bld) 7.2 % 0-10 [facility] Work Phone: Blood platelet mean volumeon 08-05-2021 Platelet mean volume (Bld) [Entitic vol] 10.6 fL 6.2-12.0 [facility] Work Phone: Determination of erythrocyte mean corpuscular volume (MCV)on 08-05-2021 MCV (RBC) [Entitic vol] 96.7 fL 81-99 [facility] Work Phone: Hematocrit Auto (Bld) [Volum e fraction]on 08-05-2021 Hematocrit (Bld) [Volume fraction] 44.1 % 37-47 [facility] Work Phone: Laboratory - Chemistry and C hemistry - challengeon 08-05-2021 ALP [Catalytic activity/Vol] 68 U/L 45-117 [facility] Work Phone: ALT [Catalytic activity/Vol] 26 U/L 13-56 [facility] Work Phone: CO2 [Moles/Vol] 31.0 mmol/L 21.0-32.0 [facility] Work Phone: Free T4 [Mass/Vol] 1.28 ng/dL 0.76-1.46 [facility] Work Phone: Globulin (S) [Mass/Vol] 3.3 g/dL 2.2-4.2 [facility] Work Phone: T4 [Mass/Vol] 10.6 ug/dL 4.8-13.9 [facility] Work Phone: Urea nitrogen/Creatinine [Mass ratio] 14.8 mg/mg 10-20 [facility] Work Phone: Laboratory - Hematology and Cell countson 08-05-2021 Erythrocyte distribution width (RBC) [Entitic vol] 44.4 fL 35.1-43.9 [facility] Work Phone: Erythrocyte distribution width (RBC) [Ratio] 12.4 % 11.6-14.6 [facility] Work Phone: Immature granulocytes/100 WBC (Bld) 0.200 % 0.0-0.9 [facility] Work Phone: Comment on above: IG% - Immature Granu locytes (promyelocytes, myelocytes and metamyelocytes) > 1% indicates that a LEFT SHIFT is Present. MCH (RBC) [Entitic mass] 31.4 pg 27.0-32.0 [facility] Work Phone: Nucleated RBC/100 WBC (Bld) [Ratio] 0 % 0-5 [facility] Work Phone: MCHC Auto (RBC) [Mass/Vol]on 08-05-2021 MCHC (RBC) [Mass/Vol] 32.4 g/dL 32-36 [facility] Work Phone: No Panel Informationon 08-05 Dehydroepiandrosterone Sulfate 89.7 ug/dL 41.2-243.7 [facility] Work Phone: Estimated GFR (MDRD) Amer 69 mL/min >60 [facility] Work Phone: Comment on above: GFR Calc Estimated GFR (MDRD) Non-Af Amer 57 mL/min >60 [facility] Work Phone: Comment on above: Non- GFR Calc Free Triiodothyronine (T3) pg/dL 2.9 pg/mL 2.18-3.98 [facility] Work Phone: Thyroglobulin Antibody 22.6 IU/mL 0.0-0.9 [facility] Work Phone: Comment on above: Thyroglobulin Antibo dy measured by Robin CoulterMethodology Thyroid Stimulating Hormone (TSH) 2.01 uIU/mL 0.358-3.74 [facility] Work Phone: Platelets bldon 08-05-2021 Platelets (Bld) [#/Vol] 305 10*3/uL 150-450 [facility] Work Phone: Serum or plasma C reactive p rotein measurement (mass/volume)on 08-05-2021 CRP [Mass/Vol] mg/L 0.0-3.0 [facility] Work Phone: Comment on above: C-Reactive Protein ( CRP) provides useful information for thediagnosis, therapy and monitoring of inflammatory processesand associated diseases. For the evaluation of Relative Riskfor Cardiovascular Disease, a High Sensitivity CRP (HSCRP)should be ordered. Serum or plasma albumin nitin urement (mass/volume)on 08-05-2021 Albumin [Mass/Vol] 4.0 g/dL 3.2-5.0 [facility] Work Phone: Serum or plasma albumin/glob ulin mass ratioon 08-05-2021 Albumin/Globulin [Mass ratio] 1.2 {ratio} 0.9-2.4 [facility] Work Phone: Serum or plasma calcium nitin urement (mass/volume)on 08-05-2021 Calcium [Mass/Vol] 9.4 mg/dL 8.5-10.1 [facility] Work Phone: Serum or plasma cholesterol in HDL measurement (mass/volume)on 08-05-2021 Cholesterol in HDL [Mass/Vol] 80 mg/dL >40 [facility] Work Phone: Comment on above: The drugs N-Acetylcy steine and Metamizole may falsely depress this assay. Reference Range HDL <40 mg/dL Low HDL Cholesterol HDL >or= 60 mg/dL High HDL Cholesterol Serum or plasma cholesterol in VLDL measurement (mass/volume)on 08-05-2021 Cholesterol in VLDL [Mass/Vol] 15 mg/dL 5-40 [facility] Work Phone: Serum or plasma creatinine m easurement (mass/volume)on 08-05-2021 Creatinine [Mass/Vol] 1.08 mg/dL 0.55-1.02 [facility] Work Phone: Comment on above: The validity of the calculated GFR & GFRAA in patients over 70 years has not been determined. Clinical correlation is essential. Serum or plasma estradiol (E 2) measurement (mass/volume)on 08-05-2021 E2 [Mass/Vol] 231.5 pg/mL [facility] Work Phone: Comment on above: NORMAL REFERENCE RAN GES FEMALE FOLLICULAR 21.4 - 164.8 pg/mL MID-CYCLE PEAK 49.9 - 367.2 pg/mL LUTEAL 40.2 - 259.0 pg/mL POST-MENOPAUSAL ON MHT <11.0 - 462.1 pg/mL NOT ON MHT <11.0 - 58.3 pg/mL MALE <11.0 - 52.5 pg/mL NOTE:[employer] HAS CONFIRMED THE DRUG FULVETRANT (FASLODEX) MAY CAUSE FALSELY ELEVATED ESTRADIOL RESULTS WHEN USING THIS TEST METHOD. IF PATIENT IS TAKING FULVESTRANT AN ALTERNATIVE METHOD SHOULD BE USED TO DETERMINE ESTRADIOL CONCENTRATION. Serum or plasma low density lipoprotein (LDL) cholesterol measurement (mass/volume)on 08-05-2021 Cholesterol in LDL [Mass/Vol] 167 mg/dL 0-130 [facility] Work Phone: Serum or plasma progesterone measurement (mass/volume)on 08-05-2021 Progesterone [Mass/Vol] ng/mL See Comment [facility] Work Phone: Comment on above: Progesterone Referen ce Table: UNITS Female: Follicular 0.15 - 1.40 ng/mL Luteal 3.34 - 25.56 ng/mL Mid-luteal 4.44 - 28.03 ng/mL Postmenopausal 0.0 - 0.73 ng/mL : 1st Trimester 11.22 - 90.00 ng/mL 2nd Trimester 25.55 - 89.40 ng/mL 3rd Trimester 48.40 -422.50 ng/mL Serum or plasma thyroperoxid ase antibody assay (units/volume)on 08-05-2021 TPO Ab Qn 23 [IU]/mL 0-34 [facility] Work Phone: Comment on above: Performed at: [address] Director: Nixon Woodard PhD, Phone: [phone] Serum or plasma urea nitroge n measurement (mass/volume)on 08-05-2021 Urea nitrogen [Mass/Vol] 16 mg/dL 7-18 [facility] Work Phone: Thin prep Papanicolaou smear with manual screeningon 08-05-2021 Thin prep Papanicolaou smear with manual screening 21 U/L 15-37 [facility] Work Phone: Thin prep Papanicolaou smear with manual screening 7 5-15 [facility] Work Phone: Whole blood hemoglobin A1c/t otal hemoglobin ratio (mass fraction)on 08-05-2021 HbA1c (Bld) [Mass fraction] 5.8 % 3.8-5.6 [facility] Work Phone: Comment on above: Normal < 5.7 % Predi abetic 5.7 - 6.4 % Diabetic >or= 6.5 % Please note range changes. CNOVon 06-11-2019 CNOV Office Visit (AKURFL) MARÍA REAL ([id number]) 1970 F Date Time Provider Department 06/11/19 2:00 PM CLAYTON HANSON During your visit today, we recorded the following information about you: Clayton Hanson DO, MBA 06/11/2019 2:25 PM Signed ?? [facility] UROLOGY LOCATION: VIRTUAL VISIT NEW CONSULT VISIT PATIENT INFO: María Marquez Deanna 48 year old PCP: Kody Franco MD [...] visit for a new consultation for left hydroureteronephrosi s. She already had an appointment with her care services manager at [facility]. She has an extensive history of endometriosis. She has some moderate left-sided flank pain that is manageable. By her report her creatinine at [facility] is almost normal. 1-Duration: 2019 2-Location: [...] POC No results found for this basename: uglucpoc,ubilipoc,uk etonpoc,usgpoc,uhbpo c,uphpoc,upropoc,uur opoc,unitpoc,uwbcpo- c,ucolpoc,uclarpoc IMAGING: Imaging reports from [facility] reviewed. MRI pending ALLERGIES: ALLERGIES Allergen Reactions [...] - Hyperlipidemia - S/P thyroidectomy 12/08/11 Dg Gage - Unspecified hypothyroidism Hypothyroidism PAST SURGICAL HISTORY [...] was negative. PHYSICAL EXAMINATION NONE IMPRESSION/PLAN: Left hydroureteronephrosi s. Left ovarian cyst. Endometriosis with likely involvement of the bladder. At this time she is coordinating her care with SERVICE CLEANER at [facility]. She has already been typed and with my colleague Dr. Reggie Dougherty. At this time she is fairly asymptomatic and her creatinine is normal by report. She does not wish to have intervention at this time. She will likely proceed to surgery with Dr. Ugalde at [facility]. All questions were answered. Clayton Hanson DO GIOVANNA Letter to: Kody Franco MD Referring Provider: PAUL UGALDE [[id number]] Allergies As of Date: 06/11/2019 Noted Allergy Reaction CHLORHEXIDINE GLUCONATE 12/12/2011 2 - Rash Date Reviewed: 06/11/2019 Reviewed by: Clayton Hanson - Fully Assessed Primary Visit Diagnosis:Hydronephr osis of left kidney [N13.30] Prescriptions as of [...] History Recorded Letter Text Encounter Status:Closed by CLAYTON HANSON on 06/11/19 [facility] PROGRESSon 06-11-2019 PROGRESS HNO ID: [id number] Author: Clayton Hanson Service: ? Author Type: Physician Type: Progress Notes Filed: 06/11/2019 2:25 PM Note Text: ?? [facility] UROLOGY LOCATION: VIRTUAL VISIT NEW CONSULT VISIT PATIENT INFO: María L Dodez 48 year old PCP: Kody Franco MD [...] visit for a new consultation for left hydroureteronephrosi s. She already had an appointment with her care services manager at [facility]. She has an extensive history of endometriosis. She has some moderate left-sided flank pain that is manageable. By her report her creatinine at [facility] is almost normal. 1-Duration: 2019 2-Location: [...] POC No results found for this basename: uglucpoc,ubilipoc,uk etonpoc,usgpoc,uhbpo c,uphpoc,upropoc,uur opoc,unitpoc, bcpoc,ucolpoc,uclarp oc IMAGING: Imaging reports from [facility] reviewed. MRI pending ALLERGIES: ALLERGIES Allergen Reactions [...] - Hyperlipidemia - S/P thyroidectomy 12/08/11 Dg [place]motne - Unspecified hypothyroidism Hypothyroidism PAST SURGICAL HISTORY Procedure Laterality Date - PAST SURGICAL HISTORY OF 1994 Plantar faciitis Both feet FAMILY HISTORY Problem [...] was negative. PHYSICAL EXAMINATION NONE IMPRESSION/PLAN: Left hydroureteronephrosi s. Left ovarian cyst. Endometriosis with likely involvement of the bladder. At this time she is coordinating her care with SERVICE CLEANER at [facility]. She has already been typed and with my colleague Dr. Reggie Dougherty. At this time she is fairly asymptomatic and her creatinine is normal by report. She does not wish to have intervention at this time. She will likely proceed to surgery with Dr. Ugalde at [facility]. All questions were answered. Clayton Hanson DO MBA Letter to: Kody Franco MD [facility] Office Visit: Thyroid Visito n 11-17-2016 Documentation of current medications (procedure) Done Invalid Interpretation Code [facility] Work Phone: Clinical Lists Update: Prelo barrel liner 11-16-2016 Tobacco smoking status NHIS Never Invalid Interpretation Code [facility] Work Phone: Tobacco use CPH[facility] Never smoker Invalid Interpretation Code [facility] Work Phone: Lab Report: Free T3on 2016 Triiodothyronine (T3) free 2.3 pg/mL Invalid Interpretation Code 2.18-3.98 [facility] Work Phone: Lab Report: T4 Free Directon 10-24-2016 Thyroxine (T4) free 1.13 ng/dL Invalid Interpretation Code 0.76-1.46 [facility] Work Phone: Lab Report: Thyroid Stim Hor vee (TSH)on 10-24-2016 Thyroid stimulating hormone (TSH) 1.06 u[iU]/mL Invalid Interpretation Code 0.358-3.74 [facility] Work Phone: Vital Signs Date Time Vital Sign Value Performing Clinician Facility 11-17-2016 08:130400 BMI (Body Mass Index) 25.62 kg/m2 [facility] Work Phone: 11-17-2016 08:13-0400 Body Temperature 98.5 [degF] [facility] Work Phone: 11-17-2016 08:13-0400 BP Diastolic 73 mm[Hg] [facility] Work Phone: 11-17-2016 08:13-0400 BP Systolic 108 mm[Hg] Rasheeda Thomas LPN [facility] Work Phone: 11-17-2016 08:13-0400 Height 170.18 cm [facility] Work Phone: 11-17-2016 08:13-0400 Pulse (Heart Rate) 81 /min [facility] Work Phone: 11-17-2016 08:13-0400 Respiratory Rate 18 /min Rasheeda Thomas LPN [facility] Work Phone: 11-17-2016 08: Weight 74.21 kg Rasheeda William HENSON [facility] Work Phone: Encounters Encounter Date Encounter Type Care Provider Facility Start: 12-20-2023 End: 12-20-2023 ambulatory Claire Lu NP Facility:[facility] Start: 12-14-2023 ambulatory Claire Lu SHIFT MGR Fa cility:[facility] Start: 12-14-2023 End: 12-17-2023 Evaluation and management of inpatient Mehul Mosteller Facility:[facility] Start: 09-08-2023 End: 09-08-2023 ambulatory Claire Lu SHIFT MGR Facility:[facility] Start: 07-14-2023 End: 07-14-2023 ambulatory [facility] Work Phone: Start: 07-14-2023 End: 07-14-2023 Patient encounter procedure [facility] Work Phone: Start: 07-14-2023 End: 07-14-2023 ambulatory Claire Lu SHIFT MGR Facility:[facility] Start: 07-03-2023 End: 07-03-2023 ambulatory [facility] Work Phone: Start: 07-03-2023 End: 07-03-2023 Patient encounter procedure [facility] Work Phone: Start: 07-03-2023 End: 07-03-2023 ambulatory Claire Lu SHIFT MGR Facility:[facility] Start: 06-14-2023 End: 06-14-2023 ambulatory [facility] Work Phone: Start: 06-14-2023 End: 06-14-2023 Patient encounter procedure [facility] Work Phone: Start: 06-14-2023 End: 06-14-2023 ambulatory Claire Lu SHIFT MGR Facility:[facility] Start: 06-08-2023 End: 06-08-2023 ambulatory [facility] Work Phone: Start: 06-08-2023 End: 06-08-2023 Patient encounter procedure [facility] Work Phone: Start: 06-08-2023 End: 06-08-2023 ambulatory Claire Lu NP Facility:[facility] Start: 05-19-2022 End: 05-19-2022 ambulatory [facility] Work Phone: Start: 05-19-2022 End: 05-19-2022 Patient encounter procedure [facility] Start: 03-31-2022 End: 03-31-2022 ambulatory [facility] Work Phone: Start: 03-31-2022 End: 03-31-2022 Patient encounter procedure [facility] Start: 03-16-2022 Registered Referred [facility] Spec[facility] Start: 12-24-2021 End: 12-24-2021 ambulatory [facility] Work Phone: Start: 12-24-2021 End: 12-24-2021 Patient encounter procedure [facility] Start: 10-08-2021 End: 10-08-2021 Patient encounter procedure [facility] Start: 08-05-2021 End: 08-05-[address] [facility] Date Procedure Procedure Detail Performing Clinician Start: 12-24-2021 Screening mammography Start: 09-21-2016 End: 10-24-2016 Thyroid stimulating hormone (TSH) Laura Leal NP Work Phone: Start: 09-21-2016 End: 10-24-2016 Thyroxine (T4) free Laura Leal NP Work Phone: Start: 09-21-2016 End: 10-24-2016 Triiodothyronine (T3) free Laura long NP Work Phone: H/O: hysterectomy History of hysterectomy Plan of Treatment Date Care Activity Detail Author Start: 11-17-2016 End: 11-17-2016 Appointment Appointment [facility] Work Phone: Start: 10-20-2016 End: 10-20-2016 Appointment Appointment [facility] Work Phone: Start: 09-21-2016 End: 10-24-2016 Thyroid stimulating hormone (TSH) *TSH [facility] Work Phone: Start: 09-21-2016 End: 10-24-2016 Thyroxine (T4) free *T4 free [facility] Work Phone: Start: 09-21-2016 End: 10-24-2016 Triiodothyronine (T3) free *T3-Free [facility] Work Phone: Payers Date Payer Category Payer Self-pay [id number] 2023 Unknown [id number] Unknown [id number] 2.16.8 [id number] Unknown [id number] 2.16.8 [id number] Unknown [id number] 2.16.8 [id number] Unknown [id number] 2.16.8 [id number] Unknown [id number] 2.16.8 [id number] Unknown [id number] 2.16.8 [id number] Unknown [id number] 2.16.8 [id number] Unknown [id number] 2.16.8 [id number] Unknown [id number] 2.16.8 [id number] Unknown [id number] 2.16.8 [id number] Unknown [id number] 2.16.8 [id number] Social History Date Type Detail Facility Start: 03-09-2020 End: 03-09-2020 Tobacco smoking status NHIS Unknown if ever smoked [facility] Start: 05-24-2019 Spouse/ Signif icant Other [facility] Start: 03-18-2018 Non-smoker [facility] Start: 1970 Sex Assigned At Female [facility] Medical Equipment Procedure Code Equipment Code Equipment Origin al Text Equipment Identifier Dates LAURA 3GRM HEMO STAT ABS FDA Start: 03-16-2018 LAUAR 3GRM HEMO STAT ABS FDA Start: 03-16-2018 LAURA 3GRM HEMO STAT ABS FDA Start: 03-16-2018 LAURA 3GRM HEMO STAT ABS FDA Start: 03-16-2018 LAURA 3GRM HEMO STAT ABS FDA Start: 03-16-2018 LAURA 3GRM HEMO STAT ABS FDA Start: 03-16-2018 LAURA 3GRM HEMO STAT ABS FDA Start: 03-16-2018 LAURA 3GRM HEMO STAT ABS FDA Start: 03-16-2018 LAURA 3GRM HEMO STAT ABS FDA Start: 03-16-2018 Discharge summary note 12-17-2023 Note Date & Type Note Facility 12-17-2023 Note [facility] Records Department [address] [place] [address] Discharge Summary 12/17/23 0925 MR#: [id number] Acct: [id number] Name: MAÍRA REAL Rep #: [id number] : 1970 53 From: Abdias Pereira MD PCP: FILIBERTO Gurrola Status:ADM IN Location: [facility] [id number] Providers Date of Admission: 12/14/23 Date of Discharge: 12/17/23 Primary Care Physician: FILIBERTO Gurrola Reason For Visit: AGUSTO W/ DEHYDRATION FROM GASTROENTERITIS Diagnosis Discharge Diagnosis (1) Nausea, vomiting, and diarrhea: Status: Acute Code(s): R11.2 - Nausea with vomiting, unspecified; R19.7 - Diarrhea, unspecified (2) Acute kidney injury: Status: Acute Code(s): N17.9 - Acute kidney failure, unspecified (3) Hypokalemia: Status: Acute Code(s): E87.6 - Hypokalemia Plan Patient is a 53-year-old female who presented [facility] ED on 12/14/2023 with 1 day history of nausea/vomiting/diarrhea and abdominal discomfort. 1. Acute enteritis due to Salmonella: ??? Admit under inpatient status to [facility]. Blood pressure running 110s. Continue IV fluid normal saline 125 mL/h. Started on IV ceftriaxone but changed to Cipro as drug of choice for Salmonella enteritis. Stool for C. difficile negative. Symptomatic management for nausea. Abdominal cramps has improved. Bentyl for abdominal cramps. 2. AGUSTO on CKD stage II ??? Creatinine 3.23 on admit, baseline around 1.1. Suspect prerenal due to GI losses as noted above. 12/14: BUNs/creatinine improving. Creatinine 1.76. Continue IV fluid support. Monitor intake and output. 12/15: BUN/creatinine much improved. BUN/creat 27/1.32. Getting IV fluid Ringer lactate. Patient could not be discharged yesterday as potassium came up low 2.4, phosphorus 2.0 even after IV potassium phosphate replacement. KD 40 mEq x 2 was ordered along with IV potassium phosphate 21 mmol. 12/16: Repeat labs today shows serum potassium better 3.2, phosphorus 2.1 serum magnesium normal. Neutra-Phos 2 packet was given. Patient discharged on Neutra-Phos for 7 more days and magnesium oxide for 5. Advised to follow-up labs BMP, magnesium and phosphorus with PCP in 3 days. 3. Mild hyponatremia ???Sodium 133 on admit. Presumed secondary to GI losses as above. Follow-up a.m. BMP. 12/14: Sodium 134. On IV fluid normal saline. 12/15 serum sodium normal 136. 4. Hypokalemia ??? Potassium 3.2 on admit. Mag and Phos ordered. Presumed secondary to GI losses. Follow-up a.m. BMP. Replete potassium as needed. 12/14: Potassium is still low despite aggressive replacement. Potassium 2.8 after replacement in the morning. IV KCl ordered. Serum magnesium normal. Phosphorus high 6.6 12/15: Serum potassium is still low 2.8, phosphorus 1.8. Magnesium normal. IV K-Phos 21 mg ordered. Repeat labs after completion of IV infusion ordered Chronic medical conditions: ??? Hypothyroidism: Continue home Synthroid. ??? Anxiety/depression: Continue home bupropion. ??? History of hysterectomy DVT prophylaxis: Heparin subcu CODE STATUS: Full code, verified Microbiology Past 72 Hours 12/14/23 17:27 Stool Enteric Bacteriology - Final Salmonella Sp. 12/14/23 17:27 Stool Clostridioides difficile (PCR) - Final 12/14/23 11:45 Mucosa - Nose SARS-CoV-2, Influenza RSV (PCR) - Final Laboratory Results 12/16/23 08:10: Ur Random Sodium 6, Urine Creatinine 163.00 12/16/23 15:47: Potassium 2.4 L*, Phosphorus 2.0 L, Magnesium 2.0 12/17/23 06:40: WBC 6.8, RBC 4.23, Hgb 12.9, Hct 39.2, MCV 92.7, MCH 30.5, MCHC 32.9, RDW Std Deviation 43.0, RDW Coeff of Rosetta 12.6, Plt Count 243, MPV 10.0, Immature Gran % (Auto) 1.500 H, Neut % (Auto) 64.6, Lymph % (Auto) 14.3 L, Pinal % (Auto) 16.4 H, Eos % (Auto) 2.2, Baso % (Auto) 1.0, Absolute Neuts (auto) 4.4, Absolute Lymphs (auto) 0.97, Nucleated RBC % 0, Sodium 140, Potassium 3.2 L, Chloride 110 H, Carbon Dioxide 25.0, Anion Gap 4 L, BUN 12, Creatinine 1.03 H, Estim Creat Clear Calc 61.43, Est GFR (MDRD) Af Amer 72, Est GFR (MDRD) Non-Af 60, BUN/Creatinine Ratio 11.7, Glucose 106, Calcium 8.9, Phosphorus 2.2 L, Magnesium 2.0 Medications at Discharge Home Medications Multipak 1 pkg PO DAILY supplement 01/18/18 cholecalciferol (vitamin D3) 25 mcg (1,000 unit) capsule (Vitamin D3) 1,000 unit PO DAILY vitamin 01/18/18 vitamin B complex 1 ea PO DAILY supplement 01/18/18 L.acidoph, paracasei,B. lactis 10 billion cell capsule 1 ea PO DAILY probiotic 03/12/18 bupropion HCl 150 mg 24 hr tablet, extended release 150 mg PO DAILY 12/14/23 levothyroxine 125 mcg tablet 125 mcg PO DAILY 12/14/23 ciprofloxacin HCl 500 mg tablet (Cipro) 500 mg PO BID 5 days #10 tabs 12/16/23 magnesium oxide 400 mg PO BID 5 days #10 tabs 12/17/23 potassium phosphate, monobasic 500 mg soluble tablet 500 mg PO BID 7 days #14 tabs 12/17/23 Physical Exam Narrative Seen and examined. Marye (more content not included)... [facility] Discharge summary note 12-16-2023 Note Date & Type Note Facility 12-16-2023 Note [facility] Records Department [address] [place] [address] Discharge Summary 12/16/23 1230 MR#: [id number] Acct: [id number] Name: MARÍA REAL Rep #: [id number] : 1970 53 From: Abdias Pereira MD PCP: FILIBERTO Gurrola Status:ADM IN Location: [place] [address] Providers Date of Admission: 12/14/23 Date of Discharge: 12/17/23 Primary Care Physician: FILIBERTO Gurrola Reason For Visit: AGUSTO W/ DEHYDRATION FROM GASTROENTERITIS Diagnosis Discharge Diagnosis (1) Nausea, vomiting, and diarrhea: Status: Acute Code(s): R11.2 - Nausea with vomiting, unspecified; R19.7 - Diarrhea, unspecified (2) Acute kidney injury: Status: Acute Code(s): N17.9 - Acute kidney failure, unspecified (3) Hypokalemia: Status: Acute Code(s): E87.6 - Hypokalemia Plan Patient is a 53-year-old female who presented [facility] ED on 12/14/2023 with 1 day history of nausea/vomiting/diarrhea and abdominal discomfort. 1. Acute enteritis due to Salmonella: ??? Admit under inpatient status to [facility]. Blood pressure running 110s. Continue IV fluid normal saline 125 mL/h. Started on IV ceftriaxone but changed to Cipro as drug of choice for Salmonella enteritis. Stool for C. difficile negative. Symptomatic management for nausea. Abdominal cramps has improved. Bentyl for abdominal cramps. 2. AGUSTO on CKD stage II ??? Creatinine 3.23 on admit, baseline around 1.1. Suspect prerenal due to GI losses as noted above. 12/14: BUNs/creatinine improving. Creatinine 1.76. Continue IV fluid support. Monitor intake and output. 12/15: BUN/creatinine much improved. BUN/creat 27/1.32. Getting IV fluid Ringer lactate. Patient could not be discharged yesterday as potassium came up low 2.4, phosphorus 2.0 even after IV potassium phosphate replacement. 3. Mild hyponatremia ???Sodium 133 on admit. Presumed secondary to GI losses as above. Follow-up a.m. BMP. 12/14: Sodium 134. On IV fluid normal saline. 12/15 serum sodium normal 136. 4. Hypokalemia ??? Potassium 3.2 on admit. Mag and Phos ordered. Presumed secondary to GI losses. Follow-up a.m. BMP. Replete potassium as needed. 12/14: Potassium is still low despite aggressive replacement. Potassium 2.8 after replacement in the morning. IV KCl ordered. Serum magnesium normal. Phosphorus high 6.6 12/15: Serum potassium is still low 2.8, phosphorus 1.8. Magnesium normal. IV K-Phos 21 mg ordered. Repeat labs after completion of IV infusion ordered Chronic medical conditions: ??? Hypothyroidism: Continue home Synthroid. ??? Anxiety/depression: Continue home bupropion. ??? History of hysterectomy DVT prophylaxis: Heparin subcu CODE STATUS: Full code, verified Microbiology Past 72 Hours 12/14/23 17:27 Stool Enteric Bacteriology - Final Salmonella Sp. 12/14/23 17:27 Stool Clostridioides difficile (PCR) - Final 12/14/23 11:45 Mucosa - Nose SARS-CoV-2, Influenza RSV (PCR) - Final Laboratory Results 12/15/23 14:18: Sodium 134 L, Potassium 2.8 L, Chloride 106, Carbon Dioxide 24.0, Anion Gap 4 L, BUN 41 H, Creatinine 1.76 H, Estim Creat Clear Calc 35.95, Est GFR (MDRD) Af Amer 39 L, Est GFR (MDRD) Non-Af 32 L, BUN/Creatinine Ratio 23.3 H, Glucose 133 H, Calcium 9.2 12/16/23 06:10: WBC 6.9, RBC 4.53, Hgb 13.6, Hct 42.1, MCV 92.9, MCH 30.0, MCHC 32.3, RDW Std Deviation 43.5, RDW Coeff of Rosetta 12.6, Plt Count 245, MPV 10.2, Immature Gran % (Auto) 0.700, Neut % (Auto) 70.6 H, Lymph % (Auto) 11.3 L, Pinal % (Auto) 14.7 H, Eos % (Auto) 1.7, Baso % (Auto) 1.0, Absolute Neuts (auto) 4.9, Absolute Lymphs (auto) 0.78 L, Nucleated RBC % 0, Differential Comment SCANNED, Platelet Estimate ADEQUATE, RBC Morphology NORM C+C, Sodium 136, Potassium 2.8 L, Chloride 108 H, Carbon Dioxide 24.0, Anion Gap 4 L, BUN 27 H, Creatinine 1.32 H, Estim Creat Clear Calc 47.93, Est GFR (MDRD) Af Amer 54 L, Est GFR (MDRD) Non-Af 45 L, BUN/Creatinine Ratio 20.5 H, Glucose 111 H, Calcium 8.6, Phosphorus 1.8 L, Magnesium 2.2 12/16/23 08:10: Ur Random Sodium 6, Urine Creatinine 163.00 Medications at Discharge Home Medications Multipak 1 pkg PO DAILY supplement 01/18/18 cholecalciferol (vitamin D3) 25 mcg (1,000 unit) capsule (Vitamin D3) 1,000 unit PO DAILY vitamin 01/18/18 vitamin B complex 1 ea PO DAILY supplement 01/18/18 L.acidoph, paracasei,B. lactis 10 billion cell capsule 1 ea PO DAILY probiotic 03/12/18 bupropion HCl 150 mg 24 hr tablet, extended release 150 mg PO DAILY 12/14/23 levothyroxine 125 mcg tablet 125 mcg PO DAILY 12/14/23 ciprofloxacin HCl 500 mg tablet (Cipro) 500 mg PO BID 5 days #10 tabs 12/16/23 magnesium oxide 400 mg PO BID 5 days #10 tabs 12/17/23 potassium phosphate, monobasic 500 mg soluble tablet 500 mg PO BID 7 days #14 tabs 12/17/23 Physical Exam Narrative Seen and examined. Patient is feeling much better. Feels well-hydrated. Electroly (more content not included)... 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 No May 24 3:11am Advance Directive Response Recorded Date/ Time Living Will No May 25, 2019 2:11am Power of Gang Drill Operator No May 24 2:11am Chief Complaint and Reason for Visit Chief Complaint HYPOTHYROIDISM,FATIG UE,DEPRESSION,HEART PALPITATIO Chief Complaint SCREENING Chief Complaint SCREENING N95.8 E28.39 R53.83 E03.9 M79.7 F41.9 Chief Complaint N95.8 E28.39 R53.83 E03.9 M79.7 F41.9 Chief Complaint N18.31 Additional Source Comments INFORMATION SOURCE (unrecogn ized section and content) DATE CREATED AUTHOR 06/11/2019 [facility] DATE CREATED AUTHOR AUTHOR'S ORGANIZ ATION 01/30/2024 [facility] Goals (unrecognized section and content) Goals may be documented in a n alternate sectionGoals may be documented in an alternate sectionGoals may be documented in an alternate sectionGoals may be documented in an alternate sectionGoals may be documented in an alternate sectionGoals may be documented in an alternate sectionGoals may be documented in an alternate sectionGoals may be documented in an alternate sectionGoals may be documented in an alternate section Care Teams (unrecognized sec tion and content) Team Status: Active Member Role Status Dates Dr. Kody Franco MD Family Provider Active Claire Lu SHIFT MGR, SHIFT MGR-C Primary Care Provider Activ e Team Status: Inactive Member Role Status Dates Claire Lu SHIFT MGR, SHIFT MGR-C Primary Care Provider, Atte nding Provider Active Team Status: Inactive Member Role Status Dates Claire Lu NP, SHIFT MGR-C Primary Care Provider Activ e Dr. Katya Newell DO Attending Provider, Referrin g Provider Active Team Status: Active Member Role Status Dates Claire Lu SHIFT MGR, SHIFT MGR-C Primary Care Provider, Atte nding Provider Active Team Status: Active Member Role Status Dates Claire Lu SHIFT MGR, SHIFT MGR-C Primary Care Provider, Attending Provider, Referring Provider Active Team Status: Inactive Member Role Status Dates Claire Lu SHIFT MGR, SHIFT MGR-C Primary Care Provider, Attending Provider, Referring Provider Active FOR RECORDS PERTAINING TO PATIENTS WHO ARE [...] BE BASED ON THE PRIMARY CLINICAL RECORDS. [facility]. provides no warranty or guarantee of the accuracy or completeness of information in this document.
[2024-09-28 11:11] LABS: Hematocrit 43.5 % (37-47); Hemoglobin 14.4 g/dL (12.0-15.0); Immature Granulocytes Count 0.020 X10^3/uL (0.0-0.0); Mean Corp Hgb Conc 33.1 g/dL (32-36); Mean Corpuscular Volume 91.6 fL (81-99); Mean Platelet Vol. 9.8 fl (6.2-12.0); NRBC Flagged by Analyzer 0 % (0-5); Platelet Count 292 K/mm3 (150-450); RBC Distribution Width CV 12.4 % (11.6-14.6); RBC Distribution Width SD 41.8 fl (35.1-43.9); Red Blood Count 4.75 M/mm3 (4.2-5.4); White Blood Count 6.2 K/mm3 (4.4-11.0)
[2024-09-28 11:42] LABS: AST(SGOT) 28 U/L (<=31); Alanine Aminotransfer ALT/SGPT 24 U/L (<=34); Albumin, Serum 4.3 g/dL (3.5-5.0); Alkaline Phosphatase 90 U/L (35-104); Amylase 88 U/L (28-100); Anion Gap 9 (5-15); BUN 19 mg/dL (4-19); BUN/Creat Ratio 19.4 RATIO (10-20); Calcium,Total 9.6 mg/dL (7.6-11.0); Carbon Dioxide 27.8 mmol/L (21.0-32.0); Chloride 102 mmol/L (98-108); Globulin 2.6 g/dL (2.2-4.2); Glucose 99 mg/dL (70-99); Lipase 68 U/L (13-75); Potassium 4.2 mmol/L (3.3-5.1)
[2024-09-28 11:54] LABS: T3 Total - Triiodothyronine 1.38 ng/mL (0.80-2.00); T4 Total, Thyroxin 9.2 ug/dL (4.8-13.9)
[2024-09-29 06:38] LABS: PROGESTERONE 0.3 ng/mL (.)
== END | disposition home or self-care (01) ==
LOC: LAB 10:45
PROVIDERS: PCP Nurse Practitioner Family; Referring Provider Nurse Practitioner Family; Visit Provider Nurse Practitioner Family
DX: E03.8 Other specified hypothyroidism (principal); N18.31 Chronic kidney disease, stage 3a; E28.39 Other primary ovarian failure; R19.7 Diarrhea, unspecified; F41.9 Anxiety disorder, unspecified
CPT/HCPCS: 36415; 80053; 82150; 82670; 83036; 83690; 84144; 84432; 84436; 84443; 84480; 85025; 86376; 86800